=== PATIENT | male | born 1965 | race Caucasian/White ===

== ENCOUNTER → 2019-06-08 06:45 | Day surgery (SDC) | payer MEDICARE, MEDICAID ==
[~2019-06-08 06:45] MED LIST: Flumazenil* 0.1 MG/ML 5 ML MDV ONE; Heparin 2 UNITS/ML IVPREMIX* 3,000 UNIT/1,500 ML BAG IV ONE; Iohexol 350 (CONTRAST) 200 ML MDV IV ONE; Lidocaine 1% INJ* 10 MG/ML 30 ML SDV ONE; Midazolam* 1 MG/ML 5 ML VIAL (5 MG) ONE; Naloxone* 0.4 MG/ML 1 ML VIAL ONE; fentaNYL* 50 MCG/ML 2 ML VIAL (100 MCG VIAL) ONE
[2019-06-08 08:21] LABS: Calcium 9.3 mg/dL (8.6-10.3); EGFR African American 124.1 (>60); EGFR Non-African American 102.6 (>60); Potassium 4.3 mmol/L (3.5-5.0)
[2019-06-08 11:57] VITALS: BP 131/87
== END | disposition home or self-care (01) ==
LOC: CHICATH 06:45
PROVIDERS: ATTEND Radiology Diagnostic Radiology
DX: I70.235 Atherosclerosis of native arteries of right leg with ulceration of other part of foot (principal); M86.9 Osteomyelitis, unspecified; M89.771 Major osseous defect, right ankle and foot; E11.621 Type 2 diabetes mellitus with foot ulcer; L97.519 Non-pressure chronic ulcer of other part of right foot with unspecified severity; Z79.84 Long term (current) use of oral hypoglycemic drugs; E11.610 Type 2 diabetes mellitus with diabetic neuropathic arthropathy; I10 Essential (primary) hypertension; E78.00 Pure hypercholesterolemia, unspecified
CPT/HCPCS: 36415; 75716; 75736; 76937; 80048; 99156; 99157; C1760; C1769; C1887; C1894; J1644; J2250; J2310; J3010

== ENCOUNTER 2019-06-16 22:14 | Inpatient (IN) | payer MEDICARE, MEDICAID ==
--- NOTE | 2019-06-16 23:10 | ED ---
Skin Complaint - HPI Summary HPI Summary: This pt is a 54 y/o male, with hx of DM, presenting to [facility] for positive MRSA from blood cultures drawn on 06/14/19. Pt reports he received a call from Dr. Farias this afternoon notifying him of positive blood cultures and advising him to come to the ED for IV antibiotics. Pt states he saw Dr. Perea, orthopedist, on 06/06/19 and pt told him about his fever the night before but was only 99.1F in his office. He notes that day he also had fever and chills. The next day on 06/07/19 pt saw the PA who works with Dr. Farias and sent him to get blood cultures. Pt was also given oral doxycycline. Pt has noticed since yesterday a lump behind his right calf. Pt also states he has a healing ulcer on his right foot. He reports a headache on 06/12 and 06/13. Denies cough, diarrhea, abd pain, rashes. Pt was supposed to have surgery with Dr. Perea on 06/19/19 to have osteomyelitis bone removed from right foot because MRI showed it was infected. Pt notes Dr. Irene did an angiogram of both legs. Pt has also been working with Dr. Pérez to potentially start hyperbaric therapy for nonhealing skin graft after his surgery. Hx of group B strep infection on left leg. Denies tobacco use. - History of Current Complaint Chief Complaint: EDGeneral Time Seen by Provider: 06/16/19 22:54 Stated Complaint: IV ANTIBOTICS PER PT Hx Obtained From: Patient Onset/Duration: Started Days Ago, Still Present Timing: Lasting Days Current Severity: None Pain Intensity: 0 Pain Scale Used: 0-10 Numeric Skin Location: Foot - right Character: Redness Aggravating Symptom(s): Nothing Alleviating Symptom(s): Nothing Associated Signs & Symptoms: Fever, Chills - Allergy/Home Medications Allergies/Adverse Reactions: Allergies Allergy/AdvReac Type Severity Reaction Status Date / Time nut - unspecified Allergy Severe FACIAL Verified 06/16/19 22:25 SWELLING PMH/Surg Hx/FS Hx/Imm Hx Endocrine/Hematology History: Reports: Hx Diabetes - type 2 Cardiovascular History: Reports: Hx Hypertension - controlled with meds Denies: Hx Angina, Hx Pacemaker/ICD GI History: Reports: Hx Gastroesophageal Reflux Disease History: Denies: Hx Chronic Renal Failure, Hx Renal Disease Sensory History: Reports: Hx Cataracts - very early stages, Hx Contacts or Glasses - contacts Denies: Hx Hearing Aid Opthamlomology History: Reports: Hx Cataracts - very early stages, Hx Contacts or Glasses - contacts Psychiatric History: Denies: Hx Panic Disorder - Cancer History Hx Chemotherapy: No - Surgical History Surgery Procedure, Year, and Place: 2017 RIGHT FOOT SHAVE [facility]. TOE AMPUTATIONS (03/2016) IN [place] ALSO 2015 DEBRIDMENT [place] Hx Anesthesia Reactions: No Infectious Disease History: Yes Infectious Disease History: Denies: Traveled Outside the [place] in Last 30 Days - Family History Known Family History: Positive: Cardiac Disease, Hypertension, Diabetes Family History: stroke - Social History Alcohol Use: Occasionally Alcohol Amount: 3-4 Substance Use Type: Reports: None Smoking Status (MU): Former Smoker Review of Systems Positive: Fever, Chills Negative: Cough Negative: Abdominal Pain, Diarrhea Skin: Other - POSITIVE: lump behind right calf Negative: Rash Positive: Headache All Other Systems Reviewed And Are Negative: Yes Physical Exam - Summary Physical Exam Summary: Appearance: Well-appearing, Well-nourished, lying in bed comfortable Skin: Warm, dry, no obvious rash Eyes: sclera anicteric, no conjunctival pallor ENT: mucous membranes moist Neck: deferred Respiratory: No signs of respiratory distress Cardiovascular: Appears well perfused, pulses are nml Abdomen: deferred Musculoskeletal: Right lower extremity: patient has a firm erythematous subcutaneous nodule approximately graped size which does not feel fluctuant but is mildly tender. He has erythema on the dorsum of the right foot around the ankle extending from the ulcer. I took the dressing down and is healing well, and is down to half a centimeter across. Neurological: Awake and alert, mentation is normal, speech is fluent and appropriate Psychiatric: affect is normal, does not appear anxious or depressed Triage Information Reviewed: Yes Vital Signs On Initial Exam: Initial Vitals Temp Pulse Resp BP Pulse Ox 97.6 F 116 16 118/74 94 06/16/19 22:20 06/16/19 22:20 06/16/19 22:20 06/16/19 22:20 06/16/19 22:20 Vital Signs Reviewed: Yes Diagnostics - Vital Signs Vital Signs Temp Pulse Resp BP Pulse Ox 06/16/19 22:20 97.6 F 116 16 118/74 94 - Laboratory Result Diagrams: 06/16/19 23:05 06/16/19 23:05 Lab Statement: Any lab studies that have been ordered have been reviewed, and results considered in the medical decision making process. Course/Dx - Course Assessment/Plan: Pt is a 54 y/o male presenting to [facility] for positive MRSA from blood cultures drawn on 06/14/19. Pt reports he received a call from Dr. Farias this afternoon notifying him of positive blood cultures and advising him to come to the ED for IV antibiotics. Pt with fever, chills, and headache on 06/12 and 06/13. He has upcoming surgery with Dr. Perea on 06/19/19 for osteomyelitis of right foot. Test results remarkable for hemoglobin of 12.9, hematocrit of 38, Bun of 36, creatinine of 1.59. Dr. Sin, orthopedist, examined the pt in the ED. Discussed the case with Dr. Diego, hospitalist, who accepted the pt for admission. - Diagnoses Provider Diagnoses: Bacteremia, Osteomyelitis of right foot - Physician Notifications Discussed Care Of Patient With: Ignacia Crook Time Discussed With Above Provider: 23:50 Instructed by Provider To: Admit As Inpatient Discharge - Sign-Out/Discharge Documenting (check all that apply): Patient Departure - Admit to [facility] Patient Received Moderate/Deep Sedation with Procedure: No - Discharge Plan Condition: Stable Disposition: ADMITTED TO [facility] - Billing Disposition and Condition Condition: STABLE Disposition: Admitted to [facility] - Attestation Statements Document Initiated by Haritha: Yes Documenting Jeseibruthie: Chasity Mike Provider For Whom Haritha is Documenting (Include Credential): Amadou Wing MD Scribruthie Attestation: Chasity Talavera, scribed for Amadou Wing MD on 06/17/19 at 1851. Scribe Documentation Reviewed: Yes Provider Attestation: The documentation as recorded by the Chasity cordoba accurately reflects the service I personally performed and the decisions made by me, Amadou Wing MD Status of Scribe Document: Viewed
[2019-06-16 23:17] LABS: ABS Basophils 0.1 10^3/ul (0-0.2); ABS Eosinophils 0.3 10^3/ul (0-0.6); ABS Lymphocytes 2.6 10^3/ul (1.0-4.8); ABS Monocytes 1.2 10^3/ul (0-0.8); ABS Neutrophils 5.2 10^3/ul (1.5-7.7); Eosinophil % 3.1 %; Hematocrit 38 % (42-52); Hemoglobin 12.9 g/dL (14.0-18.0); Lymphocyte % 28.2 %; Mean Corpuscular HGB Conc 34 g/dL (31-36); Mean Corpuscular Hemoglobin 30 pg (27-31); Mean Corpuscular Volume 89 fL (80-94); Mean Platelet Volume 6.3 fL (7.4-10.4); Nucleated Red Blood Cells % 0.1; Platelet Count 236 10^3/uL (150-450); Red Blood Count 4.25 10^6 /uL (4.18-5.48); Red Cell Distribution Width 13 % (10-15); White Blood Count 9.3 10^3/uL (3.5-10.8)
[2019-06-16 23:24] LABS: INR 1.11 (0.82-1.09)
[2019-06-16 23:33] LABS: Albumin 4.3 g/dL (3.2-5.2); Albumin/Globulin Ratio 1.2 (1-3); BUN/Creatinine Ratio 22.6 (8-20); Calcium 9.4 mg/dL (8.6-10.3); EGFR African American 55.4 (>60); EGFR Non-African American 45.8 (>60); Globulin 3.6 g/dL (2-4); Potassium 3.9 mmol/L (3.5-5.0); Total Bilirubin 0.5 mg/dL (0.2-1.0); Total Protein 7.9 g/dL (6.4-8.9)
[2019-06-17] MEDS ORDERED: oxyCODONE/Acetamin 5/325 MG* TAB PO PRN (00:02)
[2019-06-17] MEDS ORDERED: Dextrose 50% VIAL 50 ml IV PUSH PRN (00:06)
[2019-06-17] MEDS ORDERED: NS 0.9% 1000 ML** 1,000 ML IV SCH (00:15)
[2019-06-17] MEDS ORDERED: Vancomycin(*) 1,000 MG in NS 0.9% 250 ML* 250 ML IVPB ONE (00:18)
[2019-06-17 01:31] LABS: C Reactive Protein 40.08 mg/L (<8.01)
--- NOTE | 2019-06-17 01:37 | CONS ---
CONSULTATION REPORT: DATE OF CONSULT: 06/16/19 CHIEF COMPLAINT: Right foot pain and bacteremia. HISTORY OF PRESENT ILLNESS: Briefly, Mr. Yanes is a patient well known to my colleague, Dr. Perea who is going to have surgery on Wednesday, who has a chronic diabetic wound ulcer on the right foot that is going to undergo debridement. He has a known history of osteomyelitis. He has had a recent angiography by Dr. Irene on 06/08/19. He states that a couple of days ago, he started to feel uncomfortable and had fever and chills. He was seen by Dr. Tavarez's office who takes care of his chronic osteomyelitis. He underwent blood cultures which came positive today. He was called and ask to come to the ER for admission. It was positive for MRSA. He took care of somethings at home because he is away to do surgery on Wednesday and had a lot of things he needed taken care of and so he presented this evening. He denies any current fevers or chills. He does feel general malaise and does not feel very comfortable. He has chronic right foot ulceration and he is obviously a little bit nervous because of the positive blood cultures. PAST MEDICAL HISTORY: Significant for hypertension, hypercholesterolemia, type 2 diabetes, osteomyelitis, right foot ulcer, history of left leg and knee Strep B infection, Charcot arthropathy. PAST SURGICAL HISTORY: Infection debridement in March 2015, great toe amputation in November 2015, small toe amputation February 2016, foot surgery skin graft in July 2017. MEDICATIONS: Include: 1. Lisinopril. 2. Atenolol. 3. Atorvastatin. 4. Actos. 5. Tylenol. 6. Zantac. 7. and he was given doxycycline at his visit. ALLERGIES: No allergies. FAMILY HISTORY: Significant for diabetes, heart disease, hypertension, and stroke. SOCIAL HISTORY: He is disabled. He is using a rolling rollabout. He wears diabetic protective shoes, full contact shoe. PHYSICAL EXAM: He is in no acute distress. He is well developed and well nourished. He is lying comfortably in a stretcher. EOMI. Chest clear to auscultation. Heart has regular rate and rhythm. Abdomen is soft and nontender. Alert and oriented x3. Temperature 97.6, pulse of 112, O2 saturation 94%, and blood pressure of 114/73. Examination of the right foot demonstrates he has 2+ DP, PT pulses. He has some sensation but he is neuropathic on the plantar surface. He has a 1-cm wound with significant callus with an obvious deformity of the foot and Charcot deformity of the foot. He is able to flex and extend his digits. His skin is otherwise intact. There is no evidence of erythema or purulent drainage. DIAGNOSTIC STUDIES/LAB DATA: He does have blood cultures that were obtained on 06/14/19 that demonstrates positive for MRSA. Labs obtained today demonstrates white count of 9.3, hematocrit of 38, platelet count of 236, INR of 1.11. Sodium of 138, potassium 3.9, chloride 101, carbon dioxide 21, BUN 36, creatinine 1.59, glucose is 99, calcium is 9.4. CRP obtained on 06/14 was 99.18. ASSESSMENT AND PLAN: This is a 54-year-old male who is supposed to have surgery on Wednesday which will be debridement of his ulceration. I am going to discuss with Dr. Perea that he was admitted for bacteremia. He will be admitted to the Medicine Team and on IV antibiotics. We will continue to follow him. We will still plan for any kind of surgical debridement once he is stable with Dr. Perea on Wednesday. So, he should be n.p.o. after midnight on Wednesday. We will continue to follow him over the weekend. [id number]/[facility] #: [id number] ANNE
--- NOTE | 2019-06-17 06:06 | HP ---
CC: Dr. Hosea Alarcon; Dr. Tavarez; Dr. Perea; Dr. Irene; Dr. Sin * HISTORY AND PHYSICAL: DATE OF ADMISSION: 06/17/19 PRIMARY CARE PROVIDER: Dr. Hosea Alarcon. CHIEF COMPLAINT: "Positive blood cultures." HISTORY OF PRESENT ILLNESS: Eliazar Yanes is a 54-year-old male with history of diabetes and Charcot foot who was noted to have chronic wound on the bottom of the right foot and findings concerning for osteomyelitis on MRI that was performed on 05/09/19. The patient was being prepared for a foot surgery by Dr. Perea that was supposed to be done on 06/19/19. He had an angiogram with Dr. 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 On 06/14/19, the patient has had fevers for a couple of days, called Dr. Tavarez, who ordered blood cultures. The blood cultures turned out to be positive for MRSA. He was called to come into the ED for evaluation. He noted that apart from couple of days of fevers on 06/13/19 and 06/19/19, he had a red area on the back of his right calf. He is going to be admitted with diagnoses of bacteremia and osteomyelitis. PAST MEDICAL HISTORY: 1. History of diabetes type 2, insulin dependent. 2. History of Charcot foot, status post debridement of the foot in 2014. 3. Great toe amputation in 2015. 4. Small toe in amputation in February 2016. 5. He also had foot surgery and skin graft in 07/2017 for left foot strep infection. 6. History of hypertension. 7. Dyslipidemia. 8. History of chronic right foot ulcer as mentioned above. 9. History of Clostridium difficile infection when on IV vancomycin in the past. MEDICATIONS: Include: 1. Actos 15 mg q.a.m. 2. Lisinopril 20 mg daily. 3. Insulin Admelog 36 units with his meals. 4. Insulin Basaglar 130 units q.a.m. 5. Lipitor 40 mg daily. 6. Atenolol 50 mg daily. 7. Acetaminophen on a p.r.n. basis. 8. Ranitidine 75 mg daily. ALLERGIES: No known drug allergies. FAMILY HISTORY: Significant for diabetes and hypertension in both parents. SOCIAL HISTORY: The patient is currently on disability, lives alone. As his surrogate, he names his mother, Jolene [place]. The patient denies any tobacco, alcohol, or drug use. REVIEW OF SYSTEMS: Please see history of present illness. All the remaining 12 systems were reviewed with the patient and were otherwise negative. PHYSICAL EXAMINATION GENERAL: The patient is a pleasant 54-year-old male, who is in no acute distress, alert, awake, and oriented x3. VITAL SIGNS: Blood pressure of 112/73, heart rate of 112 and regular, respiratory rate 16, oxygen saturation 95% on room air, temperature of 97.9. HEENT: Head: Atraumatic and normocephalic. Eyes: Pupils are equal and reactive to light and accommodation. Oropharynx is clear. Mucosa moist. NECK: Supple. No JVD. No bruits bilaterally. RESPIRATORY: Clear to auscultation bilaterally. CARDIOVASCULAR: Regular rate and rhythm. No murmur. ABDOMEN: protuberant and distended. Soft and nontender. Bowel sounds present in all 4 quadrants. EXTREMITIES: There is trace right ankle edema. Pulses are +2 bilaterally. There is no clubbing, no cyanosis. The right foot has Charcot foot deformity noted with the mid part of the bottom of the foot area of an ulceration that is crater-like with an opening of approximately 1 cm, draining serous and scant purulent liquid. There is no erythema noted in the area. The patient does have erythema on the back of his right calf with venous cord noticed likely due to superficial phlebitis. The area on the right calf is approximately 20 cm long and 5 cm in width. NEURO EVALUATION: Speech is clear. Cranial nerves II through XII grossly intact. Motor strength is 5/5 bilaterally. DIAGNOSTIC STUDIES/LAB DATA: Showed white blood cell count of 9.3, hemoglobin 12.9, hematocrit of 38, and platelets of 236. Sodium 138, potassium 3.9, chloride 101, carbon dioxide 21, BUN 36, creatinine 1.59. Liver function test unremarkable. Lactic acid of 1.5. Blood cultures obtained from 06/14/19 showed MRSA sensitive to vancomycin. ASSESSMENT AND PLAN: 1. Osteomyelitis of the right foot with methicillin-resistant Staphylococcus aureus bacteremia and acute kidney injury. At this point, the patient is going to be placed on gentle intravenous hydration. I suspect that kidney injury is due to his ongoing infection. He is going to be continued on vancomycin and repeat blood cultures were already ordered. In the future, he will likely need a RENÉE and ID consult, which unfortunately is not available here over the weekend. We also asked Dr. Sin who co-operates Dr. Perea to see the patient in consultation. 2. Due to the patient's history of Clostridium difficile, we will place the patient on probiotics. 3. For his diabetes, the patient is going to be placed on his insulin Lantus and insulin lispro sliding scale. Actos is going to be held. 4. His hypertension, lisinopril is going to be held due to acute kidney injury and atenolol is going to be continued. 5. For DVT prophylaxis, the patient is going to be placed on heparin subcutaneously. 6. The patient's code status is full. His surrogate is his mom. TIME SPENT: Approximately 60 minutes was spent on the admission of this patient , more than half that time was spent [id number] with the patient during the interview and physical exam. [id number]/[facility] #: [id number] ANNE
[2019-06-17] MEDS: Heparin VIAL(*) 5000 UNITS/ML VIAL (FIVE THOUSAND) SUBCUT SCH ×3 (06:26→21:25)
[2019-06-17] MEDS ORDERED: Insulin GLARGINE(*) 1 UNITS UNIT SUBCUT SCH ×2 (09:00→21:00)
[2019-06-17 09:56] LABS: Urine Appearance Clear; Urine Bilirubin Negative (Negative); Urine Blood Negative (Negative); Urine Color Yellow; Urine Glucose Negative (Negative); Urine Ketones 1+ (Negative); Urine Nitrite Negative (Negative); Urine Protein Negative (Negative); Urine Specific Gravity 1.019 (1.010-1.030); Urine Urobilinogen Negative (Negative)
[2019-06-17] MEDS: Insulin LISPRO* 1 UNITS UNIT SUBCUT SCH ×6 (10:36→20:50)
[2019-06-17] MEDS ORDERED: Dextrose 50% Syringe 50 ML* 25 GM/50 ML SYRINGE IV PUSH PRN (11:24)
--- NOTE | 2019-06-17 11:35 | PN ---
Progress Note - Progress Note Date of Service: 06/17/19 Note: Pt seen and examined. Feeling ok. On IV abx. Temp Pulse Resp BP Pulse Ox 98.6 F 94 16 111/67 96 06/17/19 07:15 06/17/19 07:15 06/17/19 07:30 06/17/19 07:15 06/17/19 07:30 NAD. AAox3. comfortable in bed. foot unchanged in appearance but mildly increased drainage. SILT but dulled due to neuropathy. able to flex/ext toes. brisk cap refill A/P 54 yo M with charcot foot and diabetic ulcer now with bacteremia discussed with Dr Perea who cares for him. Plan is still for surgery wednesday as long as patient medically stable will follow. npo after midnight wednesday
--- NOTE | 2019-06-17 11:50 | PN ---
Subjective Date of Service: 06/17/19 Interval History: Pt is generally feeling well. No pain, SOB, diarrhea. He tells me the story of the wound on the plantar surface of his R foot and how it has opened and closed a few times as well as developing fevers Wednesday and Wednesday evening. We discuss his insulin dosing. He is worried about the current dose of lantus ordered and wishes to have this reduced to 30 units tonight and follow up his sugars tomorrow. Objective Active Medications: Acetaminophen (Tylenol Tab*) 650 mg PO Q4H PRN PRN Reason: FEVER/PAIN Atenolol (Tenormin Tab*) 50 mg PO QAM AARON Dextrose (D50w Syringe 50 Ml*) 12.5 gm IV PUSH .FOR FS < 60 - SS PRN PRN Reason: FS < 60 Heparin Sodium (Porcine) (Heparin Vial(*)) 5,000 units SUBCUT Q8HR [facility] Last Admin: 06/17/19 06:26 Dose: 5,000 units Insulin Glargine (Lantus(*)) 30 units SUBCUT BEDTIME AARON Insulin Human Lispro (Humalog*) 0 units SUBCUT ACHS [facility]; Protocol Last Admin: 06/17/19 10:36 Dose: Not Given Insulin Human Lispro (Humalog*) 20 units SUBCUT AC [facility] Lactobacillus Rhamnosus (Lactobacillus Acidophilus*) 1 tab PO BID AARON Oxycodone/Acetaminophen (Percocet 5/325 Tab*) 1 tab PO Q4H PRN PRN Reason: Pain mod to severe Vital Signs - 8 hr 06/17/19 06/17/19 07:15 07:30 Temperature 98.6 F Pulse Rate 94 Respiratory 18 16 Rate Blood Pressure 111/67 (mmHg) O2 Sat by Pulse 95 96 Oximetry Oxygen Devices in Use Now: None Appearance: Middle aged male sitting up in bed, NAD Eyes: No Scleral Icterus Ears/Nose/Mouth/Throat: Mucous Membranes Moist Respiratory: Symmetrical Chest Expansion and Respiratory Effort, Clear to Auscultation Cardiovascular: NL Sounds; No Murmurs; No JVD, RRR, No Edema Abdominal: NL Sounds; No Tenderness; No Distention Extremities: No Clubbing, Cyanosis Skin: - - R calf with slightly larger than quarter sized area of erythema and induration (tender to palpation). R plantar surface of the foot with quarter sized area of callus with central eraser sized ulceration in the center Neurological: Alert and Oriented x 3 Result Diagrams: 06/16/19 23:05 06/16/19 23:05 Assess/Plan/Problems-Billing Mr Bundy is a 54 yo M who has a h/o type II DM, Charcot foot, HTN and HLD who presented to the ER after being contacted that he had positive blood cultures that were drawn as an outpatient for evaluation of fever. - Patient Problems (1) MRSA bacteremia Current Visit: Yes Status: Acute Code(s): R78.81 - BACTEREMIA SNOMED Code( s): 63337136317050370 Comment: Pt with 2 of 4 bottles positive for MRSA from 06/14/19. Repeat BC no growth so far. Continue vancomycin. ID consult on 06/19/19. TTE ordered to eval for IE but seems unlikely as pt only with 1 set of BC positive. Bacteremia likely developed related to chronic R foot ulcer/osteomyelitis. (2) Osteomyelitis of right foot Current Visit: Yes Status: Acute Code(s): M86.9 - OSTEOMYELITIS, UNSPECIFIED SNOMED Code(s): 1870667590932464 Comment: Pt was already set up for surgery on 06/19/19. Continue vancomycin, I have call out to ID to discuss if he needs additional coverage given his diabetes history. Continue NWB. (3) Type II diabetes mellitus Current Visit: Yes Status: Acute Comment: Blood sugars have been at times low but otherwise under excellent control. We discussed his insulin regimen and he has told me what dose he would like to try. Will start lantus 30 units at bedtime tonight and lispro 20 units with meals. Monitor the sugars and adjust the insulin as needed. (4) HTN (hypertension) Current Visit: Yes Status: Acute Code(s): I10 - ESSENTIAL (PRIMARY) HYPERTENSION SNOMED Code(s): 65063357 Comment: BP is under excellent control. Continue atenolol and likely resume lisinopril tomorrow. (5) HLD (hyperlipidemia) Current Visit: Yes Status: Acute Code(s): E78.5 - HYPERLIPIDEMIA, UNSPECIFIED SNOMED Code(s): 62262462 Comment: Resume lipitor. (6) DVT prophylaxis Current Visit: Yes Status: Acute Code(s): Z29.9 - ENCOUNTER FOR PROPHYLACTIC MEASURES, UNSPECIFIED SNOMED Code(s): 566036269 Comment: SQ heparin (7) Full code status Current Visit: Yes Status: Acute Code(s): Z78.9 - OTHER SPECIFIED HEALTH STATUS SNOMED Code(s): 185978316
[2019-06-17] MEDS ORDERED: Famotidine TAB* 20 MG PO PRN (12:20)
[2019-06-17] MEDS: Atorvastatin* 40 MG TAB PO SCH (13:18)
[2019-06-17] MEDS: Cefepime 2 GM in Dextrose(*) 2 GM/50 ML BAG IV SCH (13:18)
[2019-06-17] MEDS: Lactobacillus Acidophilus* 1 TAB PO SCH ×2 (13:18→21:24)
[2019-06-17] MEDS: Atenolol TAB* 50 MG PO SCH (13:18)
[2019-06-17] MEDS: metroNIDAZOLE TAB* 250 MG PO SCH ×2 (13:18→21:24)
[2019-06-18] MEDS: Cefepime 2 GM in Dextrose(*) 2 GM/50 ML BAG IV SCH ×2 (00:56→13:24)
[2019-06-18] MEDS: Acetaminophen TAB* 325 MG PO PRN ×2 (00:59→06:03)
[2019-06-18] MEDS: Heparin VIAL(*) 5000 UNITS/ML VIAL (FIVE THOUSAND) SUBCUT SCH ×3 (06:00→21:16)
[2019-06-18 06:30] LABS: Calcium 10.5 mg/dL (8.6-10.3); EGFR African American 114.1 (>60); EGFR Non-African American 94.3 (>60); Potassium 4.4 mmol/L (3.5-5.0)
[2019-06-18] MEDS ORDERED: Atorvastatin* 40 MG TAB PO SCH (09:00)
[2019-06-18] MEDS: Lactobacillus Acidophilus* 1 TAB PO SCH ×2 (09:30→21:15)
[2019-06-18] MEDS: metroNIDAZOLE TAB* 250 MG PO SCH ×2 (09:30→21:15)
[2019-06-18] MEDS: Atenolol TAB* 50 MG PO SCH (09:30)
[2019-06-18] MEDS: Atorvastatin* 40 MG TAB PO SCH (09:30)
[2019-06-18] MEDS: Insulin LISPRO* 1 UNITS UNIT SUBCUT SCH ×7 (09:30→21:16)
--- NOTE | 2019-06-18 09:34 | PN ---
Subjective Date of Service: 06/18/19 Interval History: Pt is feeling well. He denies any pain. The sore area on the R calf is not as tender today. He is relieved to learn it is a thrombosed vericose vein. No diarrhea. No SOB or other issues today. He did have a headache overnight but it improved with tylenol. Objective Active Medications: Acetaminophen (Tylenol Tab*) 650 mg PO Q4H PRN PRN Reason: FEVER/PAIN Last Admin: 06/18/19 06:03 Dose: 650 mg Atenolol (Tenormin Tab*) 50 mg PO QAM [facility] Last Admin: 06/17/19 13:18 Dose: 50 mg Atorvastatin Calcium (Lipitor*) 40 mg PO QAM [facility] Last Admin: 06/17/19 13:18 Dose: 40 mg Dextrose (D50w Syringe 50 Ml*) 12.5 gm IV PUSH .FOR FS < 60 - SS PRN PRN Reason: FS < 60 Famotidine (Pepcid Tab*) 10 mg PO QAM PRN PRN Reason: INDIGESTION Heparin Sodium (Porcine) (Heparin Vial(*)) 5,000 units SUBCUT Q8HR [facility] Last Admin: 06/18/19 06:00 Dose: 5,000 units Cefepime HCl (Maxipime 2 Gm In Dextrose Duplex (*)) 2 gm in 50 mls @ 100 mls/ hr IV Q12H [facility] Last Admin: 06/18/19 00:56 Dose: 100 mls/hr Insulin Glargine (Lantus(*)) 30 units SUBCUT BEDTIME [facility] Last Admin: 06/17/19 21:25 Dose: 30 units Insulin Human Lispro (Humalog*) 0 units SUBCUT ACHS [facility]; Protocol Last Admin: 06/17/19 20:50 Dose: Not Given Insulin Human Lispro (Humalog*) 20 units SUBCUT AC [facility] Last Admin: 06/17/19 17:35 Dose: 20 units Lactobacillus Rhamnosus (Lactobacillus Acidophilus*) 1 tab PO BID [facility] Last Admin: 06/17/19 21:24 Dose: 1 tab Metronidazole (Flagyl Tab*) 500 mg PO BID [facility] Last Admin: 06/17/19 21:24 Dose: 500 mg Oxycodone/Acetaminophen (Percocet 5/325 Tab*) 1 tab PO Q4H PRN PRN Reason: Pain mod to severe Vital Signs - 8 hr 06/18/19 03:10 Pulse Rate 90 Respiratory 16 Rate Blood Pressure 115/56 (mmHg) O2 Sat by Pulse 96 Oximetry Oxygen Devices in Use Now: None Appearance: Middle aged male sitting up in bed, NAD Eyes: No Scleral Icterus Ears/Nose/Mouth/Throat: Mucous Membranes Moist Respiratory: Symmetrical Chest Expansion and Respiratory Effort, Clear to Auscultation Cardiovascular: NL Sounds; No Murmurs; No JVD, RRR, No Edema Abdominal: NL Sounds; No Tenderness; No Distention Extremities: No Clubbing, Cyanosis Skin: No Nodules or Sclerosis, - - wound on plantar surface of R foot not inspected today Neurological: Alert and Oriented x 3 Result Diagrams: 06/16/19 23:05 06/18/19 05:54 Microbiology and Other Data: Microbiology 06/16/19 23:03 Aerobic Blood Culture - Preliminary Blood Venous No Growth Day 1 Anaerobic Blood Culture - Preliminary No Growth Day 1 06/16/19 23:09 Aerobic Blood Culture - Preliminary Blood Venous No Growth Day 1 Anaerobic Blood Culture - Preliminary No Growth Day 1 Assess/Plan/Problems-Billing Mr Bundy is a 54 yo M who has a h/o type II DM, Charcot foot, HTN and HLD who presented to the ER after being contacted that he had positive blood cultures that were drawn as an outpatient for evaluation of fever. - Patient Problems (1) MRSA bacteremia Current Visit: Yes Status: Acute Code(s): R78.81 - BACTEREMIA SNOMED Code( s): 98565556840609209 Comment: Pt with 2 of 4 bottles positive for MRSA from 06/14/19. Repeat BC no growth so far D#1. Continue vancomycin. ID consult on 06/19/19. TTE pending. Bacteremia likely developed related to chronic R foot ulcer/osteomyelitis. (2) Osteomyelitis of right foot Current Visit: Yes Status: Acute Code(s): M86.9 - OSTEOMYELITIS, UNSPECIFIED SNOMED Code(s): 1235486772575650 Comment: Pt was already set up for surgery on 06/19/19. Continue vancomycin, flagyl and cefepime given the patient being diabetic and having a chronic wound. Await further ortho recommendations tomorrow. (3) Type II diabetes mellitus Current Visit: Yes Status: Acute Comment: Blood sugars are under good control. Continue lispro 20 units with meals and decrease lantus to 15 units tonight as he will be NPO. Continue to follow sugars. (4) HTN (hypertension) Current Visit: Yes Status: Acute Code(s): I10 - ESSENTIAL (PRIMARY) HYPERTENSION SNOMED Code(s): 98739555 Comment: BP is under excellent control. Continue atenolol. While Cr has improved will still hold lisinopril as BP excellent at this time. (5) HLD (hyperlipidemia) Current Visit: Yes Status: Acute Code(s): E78.5 - HYPERLIPIDEMIA, UNSPECIFIED SNOMED Code(s): 37058201 Comment: Continue lipitor. (6) DVT prophylaxis Current Visit: Yes Status: Acute Code(s): Z29.9 - ENCOUNTER FOR PROPHYLACTIC MEASURES, UNSPECIFIED SNOMED Code(s): 910860715 Comment: SQ heparin (7) Full code status Current Visit: Yes Status: Acute Code(s): Z78.9 - OTHER SPECIFIED HEALTH STATUS SNOMED Code(s): 640874425
[2019-06-18] MEDS ORDERED: Vancomycin per Pharmacy* NOTE FOLLOW UP PRN (09:36)
[2019-06-18] MEDS ORDERED: Vancomycin(*) 2,000 MG in NS 0.9% 500 ML* 500 ML IVPB ONE (10:00)
--- NOTE | 2019-06-18 11:05 | PN ---
Progress Note - Progress Note Date of Service: 06/18/19 - Ortho Note: Patient resting comfortably in bed breathing easily. He feels much better today and denies pain or fever. His bandage is intact with scant amount of drainage without signs of infection. Sensation is present but altered. Skin pink and dry without erythema. PT pulse present but faint. He understands we will proceed with scheduled surgery tomorrow.
[2019-06-18] MEDS: Vancomycin(*) 1,000 MG in NS 0.9% 250 ML* 250 ML IVPB SCH (17:51)
[2019-06-18] MEDS: Insulin GLARGINE(*) 1 UNITS UNIT SUBCUT SCH (21:14)
[2019-06-18] MEDS ORDERED: Buffered Lidocaine 1% SYRIN* 1 ML/SYRINGE INTRADERM ONE (22:25)
[2019-06-19] MEDS: Cefepime 2 GM in Dextrose(*) 2 GM/50 ML BAG IV SCH ×2 (00:44→15:13)
[2019-06-19] MEDS: Vancomycin(*) 1,000 MG in NS 0.9% 250 ML* 250 ML IVPB SCH ×4 (01:15→23:25)
[2019-06-19] MEDS ORDERED: Lactated Ringers 1000 ML Bag* 1,000 ML IV SCH (06:00)
--- NOTE | 2019-06-19 08:46 | PN ---
Subjective Date of Service: 06/19/19 Interval History: Pt is feeling well. We discussed his moderately elevated blood sugar this AM, states he would typically not take any insulin coverage for this level while NPO but later in the day, he would just get back to his usual regimen. No pain or SOB. He is ready to proceed with surgery today. Objective Active Medications: Acetaminophen (Tylenol Tab*) 650 mg PO Q4H PRN PRN Reason: FEVER/PAIN Last Admin: 06/18/19 06:03 Dose: 650 mg Atenolol (Tenormin Tab*) 50 mg PO QAM [facility] Last Admin: 06/18/19 09:30 Dose: 50 mg Atorvastatin Calcium (Lipitor*) 40 mg PO QAM [facility] Last Admin: 06/18/19 09:30 Dose: 40 mg Dextrose (D50w Syringe 50 Ml*) 12.5 gm IV PUSH .FOR FS < 60 - SS PRN PRN Reason: FS < 60 Famotidine (Pepcid Tab*) 10 mg PO QAM PRN PRN Reason: INDIGESTION Cefepime HCl (Maxipime 2 Gm In Dextrose Duplex (*)) 2 gm in 50 mls @ 100 mls/ hr IV Q12H [facility] Last Admin: 06/19/19 00:44 Dose: 100 mls/hr Vancomycin HCl 1,000 mg/ (Sodium Chloride) 250 mls @ 166.667 mls/hr IVPB Q8H [facility] Last Admin: 06/19/19 01:15 Dose: 166.667 mls/hr Lactated Ringer's (Lactated Ringers 1000 Ml Bag*) 1,000 mls @ 125 mls/hr IV PER RATE [facility] Insulin Glargine (Lantus(*)) 15 units SUBCUT BEDTIME [facility] Last Admin: 06/18/19 21:14 Dose: 15 unit Insulin Human Lispro (Humalog*) 0 units SUBCUT ACHS [facility]; Protocol Last Admin: 06/18/19 21:16 Dose: Not Given Insulin Human Lispro (Humalog*) 20 units SUBCUT AC [facility] Last Admin: 06/18/19 16:58 Dose: 20 units Lactobacillus Rhamnosus (Lactobacillus Acidophilus*) 1 tab PO BID [facility] Last Admin: 06/18/19 21:15 Dose: 1 tab Lisinopril (Prinivil Tab*) 20 mg PO QAM [facility] Metronidazole (Flagyl Tab*) 500 mg PO BID [facility] Last Admin: 06/18/19 21:15 Dose: 500 mg Oxycodone/Acetaminophen (Percocet 5/325 Tab*) 1 tab PO Q4H PRN PRN Reason: Pain mod to severe Pharmacy Consult (Vancomycin Per Pharmacy*) 1 note FOLLOW UP . PRN PRN Reason: PER PROTOCOL Pharmacy Profile Note (Vancomycin Trough Check) 1 note FOLLOW UP 929 ONE Stop: 06/19/19 09:31 Vital Signs - 8 hr 06/19/19 03:15 Temperature 98.2 F Pulse Rate 88 Respiratory 18 Rate Blood Pressure 146/86 (mmHg) O2 Sat by Pulse 96 Oximetry Oxygen Devices in Use Now: None Appearance: Middle aged obese male sitting up in bed, NAD Eyes: No Scleral Icterus Ears/Nose/Mouth/Throat: Mucous Membranes Moist Respiratory: Symmetrical Chest Expansion and Respiratory Effort, Clear to Auscultation Cardiovascular: NL Sounds; No Murmurs; No JVD, RRR, No Edema Abdominal: NL Sounds; No Tenderness; No Distention Extremities: No Clubbing, Cyanosis Skin: No Nodules or Sclerosis, - - ulcer on R foot not inspected today Neurological: Alert and Oriented x 3 Result Diagrams: 06/16/19 23:05 06/18/19 05:54 Microbiology and Other Data: Microbiology 06/16/19 23:03 Aerobic Blood Culture - Preliminary Blood Venous No Growth Day 1 Anaerobic Blood Culture - Preliminary No Growth Day 1 06/16/19 23:09 Aerobic Blood Culture - Preliminary Blood Venous No Growth Day 1 Anaerobic Blood Culture - Preliminary No Growth Day 1 Assess/Plan/Problems-Billing Mr Bundy is a 54 yo M who has a h/o type II DM, Charcot foot, HTN and HLD who presented to the ER after being contacted that he had positive blood cultures that were drawn as an outpatient for evaluation of fever. - Patient Problems (1) MRSA bacteremia Current Visit: Yes Status: Acute Code(s): R78.81 - BACTEREMIA SNOMED Code( s): 64945080985492742 Comment: Pt with 2 of 4 bottles positive for MRSA from 06/14/19. Repeat BC no growth so far D#2. Continue vancomycin. ID consult today. TTE done but results pending. It is unlikely there is IE as his cultures cleared very quickly. (2) Osteomyelitis of right foot Current Visit: Yes Status: Acute Code(s): M86.9 - OSTEOMYELITIS, UNSPECIFIED SNOMED Code(s): 6739516051847461 Comment: Plan is for the OR today. Continue vancomycin, cefepime and flagyl. ID consult pending to determine how long he will need to be on IV Abx. (3) Type II diabetes mellitus Current Visit: Yes Status: Acute Comment: BS this AM elevated secondary to reduced dose of lantus last night in anticipation of going to the OR today. Once eating again he will be restarted on lantus 30 units at bedtime and 20 units of lispro with meals. (4) HTN (hypertension) Current Visit: Yes Status: Acute Code(s): I10 - ESSENTIAL (PRIMARY) HYPERTENSION SNOMED Code(s): 58559332 Comment: BP more elevated today. Will resume lisinopril. Continue atenolol. (5) HLD (hyperlipidemia) Current Visit: Yes Status: Acute Code(s): E78.5 - HYPERLIPIDEMIA, UNSPECIFIED SNOMED Code(s): 65893549 Comment: Continue lipitor. (6) DVT prophylaxis Current Visit: Yes Status: Acute Code(s): Z29.9 - ENCOUNTER FOR PROPHYLACTIC MEASURES, UNSPECIFIED SNOMED Code(s): 993580435 Comment: SQ heparin-held for surgery (7) Full code status Current Visit: Yes Status: Acute Code(s): Z78.9 - OTHER SPECIFIED HEALTH STATUS SNOMED Code(s): 910188728
[2019-06-19] MEDS: Insulin LISPRO* 1 UNITS UNIT SUBCUT SCH ×7 (08:47→22:15)
--- NOTE | 2019-06-19 09:10 | ECHO ---
*[facility]* [place] [address] Fax #: [phone] Transthoracic Echocardiogram Patient: Miles Bundy : 1965 Study Date: 06/19/2019 Age: 54 Gender: M HR: 86 bpm Height: 74 in /188 cm BSA: 2.52 m^2 Weight: 282.4 lb /128.4 kg BMI: 36.3 kg/m^2 *Horticulture/Floriculture Teacher: * Carli Whalen RDCS RN *Referring Physician: * Marisabel ArzolaReading Physician: * Gigi Monzon MD Indications: Bacteremia. History: Chronic right foot ulcer. Risk factors: Hypertension. Diabetes mellitus. Obese. Dyslipidemia. Conclusions Summary: - Left ventricle: Systolic function is normal. The estimated ejection fraction is 55-60%. Wall motion is normal; there are no regional wall motion abnormalities. - Mitral valve: There is trace to mild regurgitation. - Aortic valve: There is no evidence of stenosis. There is no regurgitation. - Tricuspid valve: There is trace regurgitation. - Pericardium, extracardiac: There is no pericardial effusion. - Pulmonary arteries: Systolic pressure can not be accurately estimated. - No masses noted on valve structures Study data: Transthoracic echocardiogram. Procedure: Transthoracic echocardiography was performed. Image quality was fair. The study was technically limited due to body habitus. Complete 2D, spectral Doppler, and color flow Doppler. Location: Bedside. Patient status: Inpatient. Patient room number: 415-02. Rhythm: Normal sinus rhythm. Findings Left ventricle: The cavity size is normal. Wall thickness is mildly increased. Systolic function is normal. The estimated ejection fraction is 55-60%. Wall motion is normal; there are no regional wall motion abnormalities. There is no consistent Doppler evidence of clinically significant diastolic dysfunction. Right ventricle: The cavity size is normal. Wall thickness is mildly increased. Systolic function is normal. Left atrium: The atrium is normal in size. Right atrium: The atrium is normal in size. Mitral valve: The leaflets are mildly thickened. There is no evidence of stenosis. There is trace to mild regurgitation. Aortic valve: Not well visualized. The leaflets are mildly thickened. There is no evidence of stenosis. There is no regurgitation. Tricuspid valve: The valve is structurally normal. There is no evidence of stenosis. There is trace regurgitation. Pulmonic valve: The valve is structurally normal. There is no evidence of stenosis. There is trace regurgitation. Aorta: Aortic root: The aortic root is not dilated. Ascending aorta: The ascending aorta is not dilated. Aortic arch: The aortic arch is not dilated. Pericardium: There is no pericardial effusion. Pulmonary arteries: The main pulmonary artery is normal-sized. Systolic pressure can not be accurately estimated. Systemic veins: Inferior vena cava: The vessel is normal in size. There is (< 50%) respiratory change in the IVC dimension. Measurements Left ventricle Value Ref Aortic valve Value Ref TERESA, LAX 4.5 cm 4.2 - 5.8 Shanae diam, ED 2.1 cm ---- ESD, LAX 3.1 cm 2.5 - 4.0 Shanea diam/bsa, ED 0.8 cm/m^2 ---- FS, LAX 31 % 25 - 43 Peak v, S 1.16 m/sec ---- PW, ED (H) 1.2 cm 0.6 - 1.0 VTI, S 20.8 cm ---- IVS/PW, ED 0.98 Mean grad, S 3.0 mm Hg ---- E', lat shanae, TDI 11.7 cm/sec >=10.0 Peak grad, S 5.0 mm Hg - --- E/e', lat shanae, 9 LVOT/AV, VTI ratio 1.1 ---- TDI E', med shanae, TDI 8.8 cm/sec >=7.0 Mitral valve Value R ef E/e', med shanae, 12 Peak E 1.08 m/sec ---- TDI Peak A 0.88 m/sec ---- E', avg, TDI 10.3 cm/sec Decel time 208 ms ---- E/e', avg, TDI 11 <=14 Peak grad, D 4.7 mm Hg - --- Peak E/A ratio 1.2 ---- LVOT Value Ref Peak juani, S 1.1 m/sec Pulmonic valve Value Ref VTI, S 22.9 cm Peak v, S 1.23 m/sec ---- Mean grad, S 3 mm Hg Peak grad, S 6.0 mm Hg ---- Ventricular septum Value Ref Aortic root Value Ref IVS, ED (H) 1.2 cm 0.6 - 1.0 Root diam 3.3 cm <4.5 Right ventricle Value Ref Ascending aorta Value Ref TERESA minor ax, 3.4 cm 1.9 - 3.5 AAo AP diam, S 2.8 cm ---- A4C mid Aortic arch Value Ref Left atrium Value Ref Arch diam 2.7 cm ---- AP dim, ES 4.00 cm 3.00 - 4.00 Decending aorta Value Ref ML dim, A4C 4.7 cm Keanu peak juani 0.87 m/sec ---- SI dim, A4C 5.2 cm Vol/bsa, ES, 1-p 27 ml/m^2 12 - 37 Inferior vena cava Value Ref A4C Diam 1.3 cm ---- Vol/bsa, ES, A/L 27 ml/m^2 16 - 34 Right atrium Value Ref ML dim, ES, A4C (H) 4.5 cm 2.6 - 4.4 SI dim, ES, A4C 5.2 cm 3.4 - 5.3 SI dim/bsa, ES, 2.1 cm/m^2 1.8 - 3.0 A4C Legend: (L) and (H) marisol values outside specified reference range. Prepared and electronically signed by Gigi Monzon MD 06/19/2019 09:10
[2019-06-19] MEDS ORDERED: Vancomycin Trough Check NOTE FOLLOW UP ONE (09:30)
[2019-06-19] MEDS: Lactobacillus Acidophilus* 1 TAB PO SCH ×2 (09:39→20:27)
[2019-06-19] MEDS: metroNIDAZOLE TAB* 250 MG PO SCH ×2 (09:39→20:27)
[2019-06-19] MEDS: Atorvastatin* 40 MG TAB PO SCH (09:39)
[2019-06-19] MEDS: Atenolol TAB* 50 MG PO SCH (09:39)
[2019-06-19] MEDS: Lisinopril TAB* 10 MG PO SCH (09:39)
[2019-06-19] MEDS ORDERED: Morphine INJ* 2 MG/ML 1 ML SYRINGE (TWO MG - NEW SYRINGE VERSION) IV PRN (12:37)
[2019-06-19] MEDS: Acetaminophen TAB* 325 MG PO PRN ×2 (13:17→20:27)
[2019-06-19] MEDS ORDERED: oxyCODONE/Acetamin 5/325 MG* TAB PO PRN (15:07)
[2019-06-19] MEDS ORDERED: Magnesium Hydroxide LIQ* 30 ML UDC PO PRN (15:21)
[2019-06-19] MEDS ORDERED: Ondansetron INJ* 2 MG/ML VIAL IV PRN (15:22)
--- NOTE | 2019-06-19 15:28 | CONS ---
CONSULTATION REPORT: DATE OF ADMISSION: 06/17/19 DATE OF CONSULTATION: 06/19/19 PRIMARY CARE PROVIDER: Dr. Hosea Alarcon. PROVIDER REQUESTING CONSULTATION: Dr. Marisabel Arzola. CONSULTING SERVICE: Infectious disease. PROVIDER: Parish Rooney NP. ATTENDING PROVIDER: Dr. Bahman Tavarez.* (DICTATED BY PARISH ROONEY NP) REASON FOR CONSULTATION: MRSA bacteremia and chronic right foot osteomyelitis. IMPRESSION: 1. Methicillin-resistant Staphylococcus aureus bacteremia. Outpatient blood cultures with 1/4 bottles positive. Repeat blood cultures at the time of admission in the emergency room with no growth on day 2. The patient reports he has previously grown MRSA in a right foot wound. He has been afebrile, and no leukocytosis. He does not have any prosthetic material present such as implanted lines, joint replacements. I suspect the source is likely his right foot infection. He has had a transthoracic echocardiogram showing no vegetation. 2. Right foot infection with chronic osteomyelitis. He is going to surgery today with Dr. Perea for surgical debridement. 3. Diabetes mellitus type 2. 4. Acute Kidney Injury. Present on admission, resolved. PLAN: Recommend continuing cefepime, Flagyl, and vancomycin for now while we await surgical findings. Further recommendations will be based off of cultures obtained in the OR and his clinical course. Suspect he will need a long-term course of IV antibiotics to treat osteomyelitis. We will continue to follow along. HISTORY OF PRESENT ILLNESS: Mr. Yanes is a 54-year-old male with past medical history significant for diabetes mellitus type 2 and right Charcot foot , status post several surgical procedures. The patient has previously had 2 plantar ulcers on the right foot that have healed, the last one was in October 2018. He has followed with a surgeon in [place] who has done bone shaving and skin grafting to his right foot. Additionally, he underwent 60 hyperbaric treatments to heal an ulcer on his foot in the past. He currently uses a MOAPA boot to help prevent ulcers. He reports that his current right plantar foot ulcer presented in March of this year. He recently had ABIs and was referred to Dr. Irene for a possible vascular procedure. 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 The patient states that 1 week ago, he developed fevers, chills, diaphoresis, body aches, and a headache overnight. He was taking DayQuil and Tylenol for this. This persisted for 2 days. He was seen by infectious disease outpatient on Wednesday and continued to feel unwell. At that time, he denied any upper respiratory infection symptoms or urinary symptoms. After that appointment, he was sent for blood work, and was started on Doxycycline. His blood cultures drawn outpatient returned to show 1/ bottles positive for the MRSA. When these results were received on Wednesday, the patient was directed to the emergency room for admission where he awaited surgery on scheduled for Wednesday. While in the emergency room, the patient had repeat blood work drawn. He had labs showing anemia, acute kidney injury, CRP of 40.08. The patient was referred to the hospitalist service for admission. During his hospitalization, he has remained afebrile, with no leukocytosis. His acute kidney injury has resolved. His repeat blood cultures have had no growth to date. He is scheduled to have surgery with Dr. Perea later today. He has been on vancomycin, cefepime, and Flagyl during his hospitalization. He denies fevers, chills, shortness of breath, joint pain, muscle pain, nausea, vomiting, diarrhea, abdominal pain, urinary symptoms, rash, or recent travel. PAST MEDICAL HISTORY: 1. Diabetes mellitus type 2. 2. Charcot foot on the right. 3. Hypertension. 4. Hyperlipidemia. 5. Osteomyelitis. PAST SURGICAL HISTORY: 1. Status post left first and fifth toe amputations. 2. Status post multiple right foot surgeries and skin grafting. MEDICATIONS: Home Medications: 1. Lisinopril 20 mg by mouth daily. 2. Ranitidine 75 mg by mouth daily as needed for indigestion. 3. Atorvastatin 40 mg by mouth daily. 4. Atenolol 50 mg by mouth daily. 5. Lispro insulin 36 units subcutaneous 3 times daily with meals. 6. Glargine insulin 130 units subcutaneous every morning. 7. Pioglitazone 15 mg by mouth daily. Hospital Medications: 1. Acetaminophen 650 mg by mouth every 4 hours as needed for fever or pain. 2. Atenolol 50 mg by mouth daily. 3. Atorvastatin 40 mg by mouth daily. 4. Cefepime 2 g IV q.12 hours. 5. Dextrose 12.5 g IV push for glucose less than 60 as needed. 6. Famotidine 10 mg by mouth every morning as needed for indigestion. 7. Lantus insulin 15 units subcutaneous at bedtime. 8. Lispro insulin sliding scale with meals and at bedtime. 9. Lispro 20 units subcutaneous with meals. 10. Lactated Ringer's 125 mL an hour. 11. Lactobacillus 1 tablet by mouth twice daily. 12. Lisinopril 20 mg by mouth daily. 13. Metronidazole 50 mg by mouth twice daily. 14. Percocet 5/325 one tablet by mouth every 4 hours as needed for pain. 15. Vancomycin 1000 mg IV every 6 hours. ALLERGIES: No known drug allergies. FAMILY HISTORY: Father with a history of CVA. Mother with a history of diabetes mellitus. Brother with a history of diabetes. Maternal grandfather with a history of diabetes. SOCIAL HISTORY: A former smoker. Occasionally consumes alcohol. Denies recreational drug use. REVIEW OF SYSTEMS: I performed a 10-point review of systems. All the pertinent positives and negatives are mentioned in the history of present illness. The remaining review of systems are negative. PHYSICAL EXAMINATION: Vital Signs: Temperature 97.7, heart rate 86, respiratory rate 19, O2 sat 95% on room air, blood pressure 140/83. General Appearance: Alert, pleasant, appears to be in no acute distress. Head: Normocephalic, atraumatic. ENT: Pupils equal, reactive to light. Extraocular movements intact. No subconjunctival hemorrhage. Moist mucous membranes. No thrush. Neck: Supple. No lymphadenopathy. Neurological: Alert and oriented x4. Cranial nerves II through XII are grossly intact. Cardiovascular: Regular rate and rhythm. S1, S2 present. No murmurs, rubs, or gallops heard. Respiratory: No accessory muscle use. Lungs are clear to auscultation bilateral. Abdomen: Bowel sounds present. Abdomen large, soft, nontender, nondistended. Extremities: No lower extremity edema. DP/PT pulses are 1+ and symmetric. Musculoskeletal: No clubbing or cyanosis noted. The patient exhibits good strength in all extremities. Psychological: Calm and cooperative. Skin: No rash seen. DIAGNOSTIC STUDIES/LABORATORY DATA: CMP from 06/18/19: Sodium 137, potassium 4.4, chloride 104, CO2 of 26, BUN 17, creatinine 0.85, glucose 152. CBC from : White blood cell count 9.3, hemoglobin 12.9, hematocrit 38, platelet count 236. CRP on admission is 40.08. Please see impression and recommendations outlined above, these have been discussed with Dr. Marisabel Arzola. The case has been reviewed with my attending, Dr. Bahman Tavarez, who agrees with the plan of care. Reviewed by LAURENCE ABBASI 06/24/19 2049 [id number]/[facility] #: [id number] MTDLoid[place]
--- NOTE | 2019-06-19 19:28 | OP ---
DATE OF OPERATION: 06/19/19 - ROOM #415 DATE OF : 67 SURGEON: Dr. Hosea Perea. CAR SALES CONSULTANT: Dominic Onofre PA-C. PRE-OP DIAGNOSIS: Chronic osteomyelitis, right 2nd cuneiform with plantar ulcer. POST-OP DIAGNOSIS: Chronic osteomyelitis, right 2nd cuneiform with plantar ulcer. OPERATIVE PROCEDURE: Ostectomy, right mid foot. DESCRIPTION OF PROCEDURE: The patient was taken to the operating room where a longitudinal 6 cm incision was made along the medial arch. We traced this deep to the structures along the arch of the foot with a Bueno elevator and then found the large prominence of the middle cuneiform. retractors were placed around this bone and it was removed en block with a Bueno elevator. Just lateral to the 3rd cuneiform was rather prominent plantar wart and I removed this with an osteotome, shaving this bone. 3 L pulse lavage was performed as well as culture sent. We irrigated thoroughly closing in layers with superficial Monocryl and Prolene for the skin and a compression dressing applied. [id number]/[facility] #: [id number] [facility]
[2019-06-19] MEDS: Magnesium Hydroxide LIQ* 30 ML UDC PO SCH (20:26)
[2019-06-19] MEDS: Docusate CAP* 100 MG PO SCH (20:27)
[2019-06-19] MEDS: Insulin GLARGINE(*) 1 UNITS UNIT SUBCUT SCH (22:14)
[2019-06-20] MEDS: Cefepime 2 GM in Dextrose(*) 2 GM/50 ML BAG IV SCH ×2 (01:23→12:51)
[2019-06-20] MEDS: Vancomycin(*) 1,000 MG in NS 0.9% 250 ML* 250 ML IVPB SCH ×4 (04:22→22:10)
--- NOTE | 2019-06-20 08:23 | PN ---
Subjective Date of Service: 06/20/19 Interval History: Pt feels well. Post op pain well controlled, no new complaints Objective Active Medications: Acetaminophen (Tylenol Tab*) 650 mg PO Q4H PRN PRN Reason: FEVER/PAIN Last Admin: 06/19/19 20:27 Dose: 650 mg Aspirin (Aspirin Tab*) 325 mg PO DAILY [facility] Atenolol (Tenormin Tab*) 50 mg PO QAM [facility] Last Admin: 06/19/19 09:39 Dose: 50 mg Atorvastatin Calcium (Lipitor*) 40 mg PO QAM [facility] Last Admin: 06/19/19 09:39 Dose: 40 mg Dextrose (D50w Syringe 50 Ml*) 12.5 gm IV PUSH .FOR FS < 60 - SS PRN PRN Reason: FS < 60 Docusate Sodium (Colace Cap*) 100 mg PO BID [facility] Last Admin: 06/19/19 20:27 Dose: 100 mg Famotidine (Pepcid Tab*) 10 mg PO QAM PRN PRN Reason: INDIGESTION Cefepime HCl (Maxipime 2 Gm In Dextrose Duplex (*)) 2 gm in 50 mls @ 100 mls/ hr IV Q12H [facility] Last Admin: 06/20/19 01:23 Dose: 100 mls/hr Vancomycin HCl 1,000 mg/ (Sodium Chloride) 250 mls @ 166.667 mls/hr IVPB Q6H [facility] Last Admin: 06/20/19 04:22 Dose: 166.667 mls/hr Insulin Glargine (Lantus(*)) 15 units SUBCUT BEDTIME [facility] Last Admin: 06/19/19 22:14 Dose: Not Given Insulin Human Lispro (Humalog*) 0 units SUBCUT ACHS [facility]; Protocol Last Admin: 06/19/19 22:15 Dose: Not Given Insulin Human Lispro (Humalog*) 20 units SUBCUT AC [facility] Last Admin: 06/19/19 17:51 Dose: 20 units Lactobacillus Rhamnosus (Lactobacillus Acidophilus*) 1 tab PO BID [facility] Last Admin: 06/19/19 20:27 Dose: 1 tab Lisinopril (Prinivil Tab*) 20 mg PO QAM [facility] Last Admin: 06/19/19 09:39 Dose: 20 mg Magnesium Hydroxide (Milk Of Magnesia Liq*) 30 ml PO BID [facility] Last Admin: 06/19/19 20:26 Dose: 30 ml Magnesium Hydroxide (Milk Of Magnesia Liq*) 30 ml PO BID PRN PRN Reason: CONSTIPATION Metronidazole (Flagyl Tab*) 500 mg PO BID [facility] Last Admin: 06/19/19 20:27 Dose: 500 mg Morphine Sulfate (Morphine Inj (Syringe))*) 2 mg IV Q2H PRN PRN Reason: PAIN BREAKTHROUGH Ondansetron HCl (Zofran Inj*) 4 mg IV Q6H PRN PRN Reason: NAUSEA/VOMITING Oxycodone/Acetaminophen (Percocet 5/325 Tab*) 1 tab PO Q4H PRN PRN Reason: Pain mod to severe Oxycodone/Acetaminophen (Percocet 5/325 Tab*) 2 tab PO Q4H PRN PRN Reason: PAIN SEVERE Pharmacy Consult (Vancomycin Per Pharmacy*) 1 note FOLLOW UP . PRN PRN Reason: PER PROTOCOL Pharmacy Profile Note (Vancomycin Trough Check) 1 note FOLLOW UP ONCE ONE Stop: 06/20/19 09:31 Vital Signs - 8 hr 06/20/19 03:15 Temperature 98.1 F Pulse Rate 96 Respiratory 20 Rate Blood Pressure 132/82 (mmHg) O2 Sat by Pulse 95 Oximetry Oxygen Devices in Use Now: None Appearance: 54 yo M in nAD, AAOx3 Eyes: No Scleral Icterus, PERRLA Ears/Nose/Mouth/Throat: NL Teeth, Lips, Gums, Mucous Membranes Moist Neck: NL Appearance and Movements; NL JVP, Trachea Midline Respiratory: Symmetrical Chest Expansion and Respiratory Effort, Clear to Auscultation Cardiovascular: NL Sounds; No Murmurs; No JVD, RRR Abdominal: NL Sounds; No Tenderness; No Distention, No Hepatosplenomegaly Lymphatic: No Cervical Adenopathy Extremities: No Clubbing, Cyanosis, - - R post op foot in surgical dressings, not removed Skin: No Nodules or Sclerosis, - - left foot -s/p remote 1st and 5th toe amputation-well healed Neurological: Alert and Oriented x 3, NL Muscle Strength and Tone Result Diagrams: 06/16/19 23:05 06/18/19 05:54 Microbiology and Other Data: Microbiology 06/16/19 23:03 Aerobic Blood Culture - Preliminary Blood Venous No Growth Day 1 Anaerobic Blood Culture - Preliminary No Growth Day 1 06/16/19 23:09 Aerobic Blood Culture - Preliminary Blood Venous No Growth Day 1 Anaerobic Blood Culture - Preliminary No Growth Day 1 Assess/Plan/Problems-Billing Mr Bundy is a 54 yo M who has a h/o type II DM, Charcot foot, HTN and HLD who presented to the ER after being contacted that he had positive blood cultures that were drawn as an outpatient for evaluation of fever. - Patient Problems (1) MRSA bacteremia Comment: Pt with 2 of 4 bottles positive for MRSA from 06/14/19. Repeat BC no growth so far Continue vancomycin. ID consult appreciated. TTE showed no vegetation. It is unlikely there is IE as his cultures cleared very quickly. (2) Osteomyelitis of right foot Comment: s/p ostectomy by Dr. Perea on 06/19/19 Continue vancomycin, cefepime and flagyl. ID consult cont (3) HLD (hyperlipidemia) Comment: Continue lipitor. (4) HTN (hypertension) Comment: cont lisinopril, atenolol. (5) Type II diabetes mellitus Comment: BS this AM elevated secondary to reduced dose of lantus last night in anticipation of OR today. will restart lantus 30 units at bedtime (6) DVT prophylaxis Comment: SQ heparin-will restart post op Status and Disposition: inpatient
[2019-06-20] MEDS ORDERED: Insulin GLARGINE(*) 1 UNITS UNIT SUBCUT ONE (08:24)
[2019-06-20] MEDS: Insulin LISPRO* 1 UNITS UNIT SUBCUT SCH ×7 (09:08→22:39)
[2019-06-20] MEDS: Atorvastatin* 40 MG TAB PO SCH (09:11)
[2019-06-20] MEDS: Docusate CAP* 100 MG PO SCH ×2 (09:11→22:20)
[2019-06-20] MEDS: metroNIDAZOLE TAB* 250 MG PO SCH ×2 (09:11→22:21)
[2019-06-20] MEDS: Lactobacillus Acidophilus* 1 TAB PO SCH ×2 (09:11→22:21)
[2019-06-20] MEDS: Lisinopril TAB* 10 MG PO SCH (09:11)
[2019-06-20] MEDS: Atenolol TAB* 50 MG PO SCH (09:11)
[2019-06-20] MEDS: Aspirin TAB* 325 MG PO SCH (09:12)
[2019-06-20] MEDS: Magnesium Hydroxide LIQ* 30 ML UDC PO SCH ×2 (09:12→22:20)
[2019-06-20] MEDS ORDERED: Vancomycin Trough Check NOTE FOLLOW UP ONE (09:30)
[2019-06-20] MEDS: Heparin VIAL(*) 5000 UNITS/ML VIAL (FIVE THOUSAND) SUBCUT SCH ×2 (12:54→22:38)
[2019-06-20] MEDS: Insulin GLARGINE(*) 1 UNITS UNIT SUBCUT SCH (22:30)
[2019-06-21] MEDS: Cefepime 2 GM in Dextrose(*) 2 GM/50 ML BAG IV SCH (00:04)
[2019-06-21] MEDS ORDERED: Lidocaine 2.5%/Prilocain 2.5%* 5 GM TUBE TOPICAL ONE (05:25)
[2019-06-21] MEDS: Heparin VIAL(*) 5000 UNITS/ML VIAL (FIVE THOUSAND) SUBCUT SCH ×3 (06:03→20:39)
[2019-06-21 06:28] LABS: Hematocrit 34 % (42-52); Hemoglobin 11.5 g/dL (14.0-18.0); Mean Corpuscular HGB Conc 34 g/dL (31-36); Mean Corpuscular Hemoglobin 31 pg (27-31); Mean Corpuscular Volume 89 fL (80-94); Mean Platelet Volume 6.5 fL (7.4-10.4); Platelet Count 256 10^3/uL (150-450); Red Blood Count 3.78 10^6 /uL (4.18-5.48); Red Cell Distribution Width 14 % (10-15); White Blood Count 9.1 10^3/uL (3.5-10.8)
[2019-06-21 06:30] LABS: ABS Eosinophils 0.4 10^3/ul (0-0.6); ABS Neutrophils 5.7 10^3/ul (1.5-7.7)
[2019-06-21] MEDS: Vancomycin(*) 1,000 MG in NS 0.9% 250 ML* 250 ML IVPB SCH ×3 (06:30→18:19)
[2019-06-21 06:42] LABS: BUN/Creatinine Ratio 19.2 (8-20); Calcium 9.5 mg/dL (8.6-10.3); EGFR Non-African American 112.4 (>60); Potassium 4.4 mmol/L (3.5-5.0)
[2019-06-21 06:51] LABS: Eosinophil % 3.9 %; Lymphocyte % 21.7 %
[2019-06-21] MEDS: Lactobacillus Acidophilus* 1 TAB PO SCH ×2 (09:16→20:39)
[2019-06-21] MEDS: metroNIDAZOLE TAB* 250 MG PO SCH (09:16)
[2019-06-21] MEDS: Atorvastatin* 40 MG TAB PO SCH (09:17)
[2019-06-21] MEDS: Atenolol TAB* 50 MG PO SCH (09:17)
[2019-06-21] MEDS: Lisinopril TAB* 10 MG PO SCH (09:17)
[2019-06-21] MEDS: Insulin LISPRO* 1 UNITS UNIT SUBCUT SCH ×7 (09:17→20:47)
[2019-06-21] MEDS: Aspirin TAB* 325 MG PO SCH (09:17)
[2019-06-21] MEDS: Magnesium Hydroxide LIQ* 30 ML UDC PO SCH ×2 (09:19→20:48)
[2019-06-21] MEDS: Docusate CAP* 100 MG PO SCH ×2 (09:19→20:47)
--- NOTE | 2019-06-21 09:58 | PN ---
Subjective Date of Service: 06/21/19 Interval History: Pt feels well. C/o rare shooting pain in r foot that lasts seconds and resolves spontaneously Objective Active Medications: Acetaminophen (Tylenol Tab*) 650 mg PO Q4H PRN PRN Reason: FEVER/PAIN Last Admin: 06/19/19 20:27 Dose: 650 mg Aspirin (Aspirin Tab*) 325 mg PO DAILY [facility] Last Admin: 06/21/19 09:17 Dose: 325 mg Atenolol (Tenormin Tab*) 50 mg PO QAM [facility] Last Admin: 06/21/19 09:17 Dose: 50 mg Atorvastatin Calcium (Lipitor*) 40 mg PO QAM [facility] Last Admin: 06/21/19 09:17 Dose: 40 mg Dextrose (D50w Syringe 50 Ml*) 12.5 gm IV PUSH .FOR FS < 60 - SS PRN PRN Reason: FS < 60 Docusate Sodium (Colace Cap*) 100 mg PO BID [facility] Last Admin: 06/21/19 09:19 Dose: Not Given Famotidine (Pepcid Tab*) 10 mg PO QAM PRN PRN Reason: INDIGESTION Heparin Sodium (Porcine) (Heparin Vial(*)) 5,000 units SUBCUT Q8HR [facility] Last Admin: 06/21/19 06:03 Dose: 5,000 units Cefepime HCl (Maxipime 2 Gm In Dextrose Duplex (*)) 2 gm in 50 mls @ 100 mls/ hr IV Q12H [facility] Last Admin: 06/21/19 00:04 Dose: 100 mls/hr Vancomycin HCl 1,000 mg/ (Sodium Chloride) 250 mls @ 166.667 mls/hr IVPB 0030, 0630,1230,1830 [facility] Insulin Glargine (Lantus(*)) 30 units SUBCUT BEDTIME [facility] Last Admin: 06/20/19 22:30 Dose: 30 units Insulin Human Lispro (Humalog*) 0 units SUBCUT ACHS [facility]; Protocol Last Admin: 06/21/19 09:17 Dose: 2 unit Insulin Human Lispro (Humalog*) 20 units SUBCUT AC [facility] Last Admin: 06/21/19 09:18 Dose: 20 units Lactobacillus Rhamnosus (Lactobacillus Acidophilus*) 1 tab PO BID [facility] Last Admin: 06/21/19 09:16 Dose: 1 tab Lisinopril (Prinivil Tab*) 20 mg PO QAM [facility] Last Admin: 06/21/19 09:17 Dose: 20 mg Magnesium Hydroxide (Milk Of Magnesia Liq*) 30 ml PO BID [facility] Last Admin: 06/21/19 09:19 Dose: Not Given Magnesium Hydroxide (Milk Of Magnesia Liq*) 30 ml PO BID PRN PRN Reason: CONSTIPATION Metronidazole (Flagyl Tab*) 500 mg PO BID [facility] Last Admin: 06/21/19 09:16 Dose: 500 mg Morphine Sulfate (Morphine Inj (Syringe))*) 2 mg IV Q2H PRN PRN Reason: PAIN BREAKTHROUGH Ondansetron HCl (Zofran Inj*) 4 mg IV Q6H PRN PRN Reason: NAUSEA/VOMITING Oxycodone/Acetaminophen (Percocet 5/325 Tab*) 1 tab PO Q4H PRN PRN Reason: Pain mod to severe Oxycodone/Acetaminophen (Percocet 5/325 Tab*) 2 tab PO Q4H PRN PRN Reason: PAIN SEVERE Pharmacy Consult (Vancomycin Per Pharmacy*) 1 note FOLLOW UP . PRN PRN Reason: PER PROTOCOL Pharmacy Profile Note (Vancomycin Trough Check) 1 note FOLLOW UP 929 ONE Stop: 06/22/19 12:01 Vital Signs - 8 hr 06/21/19 04:02 Temperature 97.5 F Pulse Rate 88 Respiratory 20 Rate Blood Pressure 119/73 (mmHg) O2 Sat by Pulse 96 Oximetry Oxygen Devices in Use Now: None Appearance: 54 yo M in nAD, aAOx3 Eyes: No Scleral Icterus, PERRLA Ears/Nose/Mouth/Throat: NL Teeth, Lips, Gums, Mucous Membranes Moist Neck: NL Appearance and Movements; NL JVP, Trachea Midline Respiratory: Symmetrical Chest Expansion and Respiratory Effort, Clear to Auscultation Cardiovascular: NL Sounds; No Murmurs; No JVD, RRR, No Edema Abdominal: NL Sounds; No Tenderness; No Distention, No Hepatosplenomegaly Lymphatic: No Cervical Adenopathy Extremities: No Edema, No Clubbing, Cyanosis Skin: No Rash or Ulcers, No Nodules or Sclerosis, - - R foot in post op dressings, dry, dressings not removed Neurological: Alert and Oriented x 3, NL Muscle Strength and Tone Result Diagrams: 06/21/19 05:57 06/21/19 05:57 Microbiology and Other Data: Microbiology 06/16/19 23:03 Aerobic Blood Culture - Preliminary Blood Venous No Growth Day 1 Anaerobic Blood Culture - Preliminary No Growth Day 1 06/16/19 23:09 Aerobic Blood Culture - Preliminary Blood Venous No Growth Day 1 Anaerobic Blood Culture - Preliminary No Growth Day 1 Assess/Plan/Problems-Billing Mr Bundy is a 54 yo M who has a h/o type II DM, Charcot foot, HTN and HLD who presented to the ER after being contacted that he had positive blood cultures that were drawn as an outpatient for evaluation of fever. - Patient Problems (1) MRSA bacteremia Comment: Pt with 2 of 4 bottles positive for MRSA from 06/14/19. Repeat BC no growth so far Continue vancomycin. ID consult appreciated. PICC to be placed today. TTE showed no vegetation. It is unlikely there is IE as his cultures cleared very quickly. cont Cefepime/Vanc Flagyl and await ID's recommendations for d/c antibiotics (2) Osteomyelitis of right foot Comment: s/p ostectomy by Dr. Perea on 06/19/19 Continue vancomycin, cefepime and flagyl. ID consult cont (3) HLD (hyperlipidemia) Comment: Continue lipitor. (4) HTN (hypertension) Comment: cont lisinopril, atenolol. (5) Type II diabetes mellitus Comment: BS under better control today. cont lantus 30 units at bedtime (6) DVT prophylaxis Comment: SQ heparin Status and Disposition: inpatient
--- NOTE | 2019-06-21 13:36 | PN ---
Progress Note - Progress Note Date of Service: 06/21/19 SOAP: Subjective: []Pt seen at bedside, he feels well. Right foot is not painful. Denies fever, chills, nausea, abd pain, CP, SOB. Objective: []Gen: NAD RLE: Dressing CDI, no erythema proximal or distal. Insensate toes, + f/e at MTPs , cap refill less than two seconds distally. Calves supple and nontender without erythema, edema or palpable cords Assessment: [Chronic osteomyelitis, right 2nd cuneiform with plantar ulcer POD 2 sp Ostectomy, right mid foot. Plan: []NWB RLE cont abx per ID: vancomycin likely x 4 weeks Vital Signs Temp 98.1 F 06/21/19 12:01 Pulse 86 06/21/19 12:01 Resp 18 06/21/19 12:01 BP 129/73 06/21/19 12:01 Pulse Ox 98 06/21/19 12:01 Intake & Output 06/20/19 06/21/19 06/21/19 18:59 06:59 18:59 Intake Total 830 732 720 Balance 830 732 720 Intake: IV Fluids 350 35 ABX - CEFEPIME 100 ABX - VANCOMYCIN 250 NS (0.9%) 35 IVPB 337 NS (0.9%) 337 Oral 480 360 720 Other: # Bowel Movements 0 # Voids 2 Laboratory Last Values WBC 9.1 10^3/uL (3.5-10.8) 06/21/19 05:57 RBC 3.78 10^6 /uL (4.18-5.48) L 06/21/19 05:57 Hgb 11.5 g/dL (14.0-18.0) L 06/21/19 05:57 Hct 34 % (42-52) L 06/21/19 05:57 MCV 89 fL (80-94) 06/21/19 05:57 MCH 31 pg (27-31) 06/21/19 05:57 MCHC 34 g/dL (31-36) 06/21/19 05:57 RDW 14 % (10-15) 06/21/19 05:57 Plt Count 256 10^3/uL (150-450) 06/21/19 05:57 MPV 6.5 fL (7.4-10.4) L 06/21/19 05:57 Neut % (Auto) 63.4 % 06/21/19 05:57 Lymph % (Auto) 21.7 % 06/21/19 05:57 [place] % (Auto) 10.6 % 06/21/19 05:57 Eos % (Auto) 3.9 % 06/21/19 05:57 Baso % (Auto) 0.4 % 06/21/19 05:57 Absolute Neuts (auto) 5.7 10^3/ul (1.5-7.7) 06/21/19 05:57 Absolute Lymphs (auto) 2.0 10^3/ul (1.0-4.8) 06/21/19 05:57 Absolute Monos (auto) 1.0 10^3/ul (0-0.8) H 06/21/19 05:57 Absolute Eos (auto) 0.4 10^3/ul (0-0.6) 06/21/19 05:57 Absolute Basos (auto) 0.0 10^3/ul (0-0.2) 06/21/19 05:57 Absolute Nucleated RBC 0.0 10^3/ul 06/21/19 05:57 Nucleated RBC % 0.0 06/21/19 05:57 INR (Anticoag Therapy) 1.11 (0.82-1.09) H 06/16/19 23:05 Sodium 135 mmol/L (135-145) 06/21/19 05:57 Potassium 4.4 mmol/L (3.5-5.0) 06/21/19 05:57 Chloride 104 mmol/L (101-111) 06/21/19 05:57 Carbon Dioxide 22 mmol/L (22-32) 06/21/19 05:57 Anion Gap 9 mmol/L (2-11) 06/21/19 05:57 BUN 14 mg/dL (6-24) 06/21/19 05:57 Creatinine 0.73 mg/dL (0.67-1.17) 06/21/19 05:57 Est GFR ( Amer) 136.0 (>60) 06/21/19 05:57 Est GFR (Non-Af Amer) 112.4 (>60) 06/21/19 05:57 BUN/Creatinine Ratio 19.2 (8-20) 06/21/19 05:57 Glucose 250 mg/dL (70-100) H 06/21/19 05:57 POC Glucose (mg/dL) 206 mg/dL (70-100) H 06/21/19 12:34 Lactic Acid 1.5 mmol/L (0.5-2.0) 06/16/19 23:05 Calcium 9.5 mg/dL (8.6-10.3) 06/21/19 05:57 Total Bilirubin 0.50 mg/dL (0.2-1.0) 06/16/19 23:05 AST 23 U/L (13-39) 06/16/19 23:05 ALT 26 U/L (7-52) 06/16/19 23:05 Alkaline Phosphatase 69 U/L (34-104) 06/16/19 23:05 C-Reactive Protein 40.08 mg/L (<8.01) H 06/16/19 23:05 Total Protein 7.9 g/dL (6.4-8.9) 06/16/19 23:05 Albumin 4.3 g/dL (3.2-5.2) 06/16/19 23:05 Globulin 3.6 g/dL (2-4) 06/16/19 23:05 Albumin/Globulin Ratio 1.2 (1-3) 06/16/19 23:05 Urine Color Yellow 06/17/19 09:34 Urine Appearance Clear 06/17/19 09:34 Urine pH 5.0 (5-9) 06/17/19 09:34 Ur Specific [place] 1.019 (1.010-1.030) 06/17/19 09:34 Urine Protein Negative (Negative) 06/17/19 09:34 Urine Ketones 1+ (Negative) A 06/17/19 09:34 Urine Blood Negative (Negative) 06/17/19 09:34 Urine Nitrate Negative (Negative) 06/17/19 09:34 Urine Bilirubin Negative (Negative) 06/17/19 09:34 Urine Urobilinogen Negative (Negative) 06/17/19 09:34 Ur Leukocyte Esterase Negative (Negative) 06/17/19 09:34 Urine Glucose Negative (Negative) 06/17/19 09:34 Vancomycin Trough 11.4 mcg/mL 06/20/19 09:39
[2019-06-21] MEDS: Insulin GLARGINE(*) 1 UNITS UNIT SUBCUT SCH (20:45)
[2019-06-22] MEDS: Vancomycin(*) 1,000 MG in NS 0.9% 250 ML* 250 ML IVPB SCH ×3 (00:45→13:19)
[2019-06-22] MEDS: Heparin VIAL(*) 5000 UNITS/ML VIAL (FIVE THOUSAND) SUBCUT SCH ×2 (07:21→13:48)
[2019-06-22] MEDS: Docusate CAP* 100 MG PO SCH (09:51)
[2019-06-22] MEDS: Magnesium Hydroxide LIQ* 30 ML UDC PO SCH (09:51)
[2019-06-22] MEDS: Atenolol TAB* 50 MG PO SCH (09:51)
[2019-06-22] MEDS: Atorvastatin* 40 MG TAB PO SCH (09:51)
[2019-06-22] MEDS: Insulin LISPRO* 1 UNITS UNIT SUBCUT SCH ×4 (09:51→13:20)
[2019-06-22] MEDS: Aspirin TAB* 325 MG PO SCH (09:51)
[2019-06-22] MEDS: Lisinopril TAB* 10 MG PO SCH (09:51)
[2019-06-22] MEDS: Lactobacillus Acidophilus* 1 TAB PO SCH (09:51)
[2019-06-22] MEDS ORDERED: Vancomycin Trough Check NOTE FOLLOW UP ONE (12:00)
--- NOTE | 2019-06-22 13:42 | PN ---
Subjective Date of Service: 06/22/19 Interval History: Pt feels well, ready to go home Objective Active Medications: Acetaminophen (Tylenol Tab*) 650 mg PO Q4H PRN PRN Reason: FEVER/PAIN Last Admin: 06/19/19 20:27 Dose: 650 mg Aspirin (Aspirin Tab*) 325 mg PO DAILY [facility] Last Admin: 06/22/19 09:51 Dose: 325 mg Atenolol (Tenormin Tab*) 50 mg PO QAM [facility] Last Admin: 06/22/19 09:51 Dose: 50 mg Atorvastatin Calcium (Lipitor*) 40 mg PO QAM [facility] Last Admin: 06/22/19 09:51 Dose: 40 mg Dextrose (D50w Syringe 50 Ml*) 12.5 gm IV PUSH .FOR FS < 60 - SS PRN PRN Reason: FS < 60 Docusate Sodium (Colace Cap*) 100 mg PO BID [facility] Last Admin: 06/22/19 09:51 Dose: 100 mg Famotidine (Pepcid Tab*) 10 mg PO QAM PRN PRN Reason: INDIGESTION Heparin Sodium (Porcine) (Heparin Vial(*)) 5,000 units SUBCUT Q8HR [facility] Last Admin: 06/22/19 07:21 Dose: 5,000 units Heparin Sodium (Porcine) (Heparin Flush Picc/Ml/Cvc(*)) 1 - 3 ml FLUSH 0600, 1800 [facility]; Protocol Last Admin: 06/22/19 09:52 Dose: 1 ml Vancomycin HCl 1,000 mg/ (Sodium Chloride) 250 mls @ 166.667 mls/hr IVPB 0030, 0630,1230,1830 [facility] Last Admin: 06/22/19 13:19 Dose: 166.667 mls/hr Insulin Glargine (Lantus(*)) 30 units SUBCUT BEDTIME [facility] Last Admin: 06/21/19 20:45 Dose: 30 units Insulin Human Lispro (Humalog*) 0 units SUBCUT ACHS [facility]; Protocol Last Admin: 06/22/19 13:19 Dose: 6 unit Insulin Human Lispro (Humalog*) 20 units SUBCUT AC [facility] Last Admin: 06/22/19 13:20 Dose: 20 units Lactobacillus Rhamnosus (Lactobacillus Acidophilus*) 1 tab PO BID [facility] Last Admin: 06/22/19 09:51 Dose: 1 tab Lisinopril (Prinivil Tab*) 20 mg PO QAM [facility] Last Admin: 06/22/19 09:51 Dose: 20 mg Magnesium Hydroxide (Milk Of Magnesia Liq*) 30 ml PO BID [facility] Last Admin: 06/22/19 09:51 Dose: 30 ml Magnesium Hydroxide (Milk Of Magnesia Liq*) 30 ml PO BID PRN PRN Reason: CONSTIPATION Morphine Sulfate (Morphine Inj (Syringe))*) 2 mg IV Q2H PRN PRN Reason: PAIN BREAKTHROUGH Ondansetron HCl (Zofran Inj*) 4 mg IV Q6H PRN PRN Reason: NAUSEA/VOMITING Oxycodone/Acetaminophen (Percocet 5/325 Tab*) 1 tab PO Q4H PRN PRN Reason: Pain mod to severe Oxycodone/Acetaminophen (Percocet 5/325 Tab*) 2 tab PO Q4H PRN PRN Reason: PAIN SEVERE Pharmacy Consult (Vancomycin Per Pharmacy*) 1 note FOLLOW UP . PRN PRN Reason: PER PROTOCOL Vital Signs - 8 hr 06/22/19 06/22/19 06/22/19 08:00 08:17 12:25 Temperature 98.3 F 98.2 F Pulse Rate 85 82 Respiratory 18 16 Rate Blood Pressure 146/77 128/74 (mmHg) O2 Sat by Pulse 96 97 96 Oximetry Oxygen Devices in Use Now: None Appearance: 54 yo M in nAD, aAOx3 Eyes: No Scleral Icterus, PERRLA Ears/Nose/Mouth/Throat: NL Teeth, Lips, Gums, Mucous Membranes Moist Neck: NL Appearance and Movements; NL JVP, Trachea Midline Respiratory: Symmetrical Chest Expansion and Respiratory Effort, Clear to Auscultation Cardiovascular: NL Sounds; No Murmurs; No JVD Abdominal: NL Sounds; No Tenderness; No Distention Lymphatic: No Cervical Adenopathy Extremities: No Edema, No Clubbing, Cyanosis Skin: No Nodules or Sclerosis, - - r foot in post op dressings, not removed Neurological: Alert and Oriented x 3, NL Muscle Strength and Tone Result Diagrams: 06/21/19 05:57 06/21/19 05:57 Microbiology and Other Data: Microbiology 06/16/19 23:03 Aerobic Blood Culture - Preliminary Blood Venous No Growth Day 1 Anaerobic Blood Culture - Preliminary No Growth Day 1 06/16/19 23:09 Aerobic Blood Culture - Preliminary Blood Venous No Growth Day 1 Anaerobic Blood Culture - Preliminary No Growth Day 1 Assess/Plan/Problems-Billing Mr Bundy is a 54 yo M who has a h/o type II DM, Charcot foot, HTN and HLD who presented to the ER after being contacted that he had positive blood cultures that were drawn as an outpatient for evaluation of fever. - Patient Problems (1) MRSA bacteremia Comment: Pt with 2 of 4 bottles positive for MRSA from 06/14/19. Repeat BC no growth so far Continue vancomycin. ID consult appreciated. PICC placed TTE showed no vegetation. It is unlikely there is IE as his cultures cleared very quickly. cont Vanc 2000 mg IV Q12H x 6 weeks as per ID's recommendations (2) Osteomyelitis of right foot Comment: s/p ostectomy by Dr. Perea on 06/19/19 Continue vancomycin (3) HLD (hyperlipidemia) Comment: Continue lipitor. (4) HTN (hypertension) Comment: cont lisinopril, atenolol. (5) Type II diabetes mellitus Comment: cont lantus 30 units at bedtime (6) DVT prophylaxis Comment: SQ heparin Status and Disposition: inpatient
--- NOTE | 2019-06-22 14:21 | PN ---
Progress Note - Progress Note Date of Service: 06/22/19 SOAP: Subjective: []Pt seen at bedside with Dr Perea. He feels well without RLE pain. Denies CP, SOB, fever or chills. Objective: []Gen: NAD RLE: Dressing changed, incision CDI without erythema or discharge. + f/e at MTPs , cap refill less than two seconds distally. Assessment: [Chronic osteomyelitis, right 2nd cuneiform with plantar ulcer POD 3 sp Ostectomy, right mid foot. Plan: []NWB RLE Keep dressing CDI until follow up with Dr Perea in 1 week cont abx per ID: vancomycin likely x 4 weeks Vital Signs Temp 98.2 F 06/22/19 12:25 Pulse 82 06/22/19 12:25 Resp 16 06/22/19 08:17 BP 128/74 06/22/19 12:25 Pulse Ox 96 06/22/19 12:25 Intake & Output 06/21/19 06/22/19 06/22/19 18:59 06:59 18:59 Intake Total 1830 1250 1050 Output Total 400 Balance 2254 300 0295 Intake: IV Fluids 270 15 ABX - VANCOMYCIN 250 15 NS (0.9%) 20 IVPB 275 ABX - VANCOMYCIN 275 Oral 6033 090 4283 Output: Urine 400 Other: Estimated Void Medium Date of Last Bowel [id number] unknown Movement # Bowel Movements unknown # Voids 2 2 Laboratory Last Values WBC 9.1 10^3/uL (3.5-10.8) 06/21/19 05:57 RBC 3.78 10^6 /uL (4.18-5.48) L 06/21/19 05:57 Hgb 11.5 g/dL (14.0-18.0) L 06/21/19 05:57 Hct 34 % (42-52) L 06/21/19 05:57 MCV 89 fL (80-94) 06/21/19 05:57 MCH 31 pg (27-31) 06/21/19 05:57 MCHC 34 g/dL (31-36) 06/21/19 05:57 RDW 14 % (10-15) 06/21/19 05:57 Plt Count 256 10^3/uL (150-450) 06/21/19 05:57 MPV 6.5 fL (7.4-10.4) L 06/21/19 05:57 Neut % (Auto) 63.4 % 06/21/19 05:57 Lymph % (Auto) 21.7 % 06/21/19 05:57 [place] % (Auto) 10.6 % 06/21/19 05:57 Eos % (Auto) 3.9 % 06/21/19 05:57 Baso % (Auto) 0.4 % 06/21/19 05:57 Absolute Neuts (auto) 5.7 10^3/ul (1.5-7.7) 06/21/19 05:57 Absolute Lymphs (auto) 2.0 10^3/ul (1.0-4.8) 06/21/19 05:57 Absolute Monos (auto) 1.0 10^3/ul (0-0.8) H 06/21/19 05:57 Absolute Eos (auto) 0.4 10^3/ul (0-0.6) 06/21/19 05:57 Absolute Basos (auto) 0.0 10^3/ul (0-0.2) 06/21/19 05:57 Absolute Nucleated RBC 0.0 10^3/ul 06/21/19 05:57 Nucleated RBC % 0.0 06/21/19 05:57 INR (Anticoag Therapy) 1.11 (0.82-1.09) H 06/16/19 23:05 Sodium 135 mmol/L (135-145) 06/21/19 05:57 Potassium 4.4 mmol/L (3.5-5.0) 06/21/19 05:57 Chloride 104 mmol/L (101-111) 06/21/19 05:57 Carbon Dioxide 22 mmol/L (22-32) 06/21/19 05:57 Anion Gap 9 mmol/L (2-11) 06/21/19 05:57 BUN 14 mg/dL (6-24) 06/21/19 05:57 Creatinine 0.73 mg/dL (0.67-1.17) 06/21/19 05:57 Est GFR ( Amer) 136.0 (>60) 06/21/19 05:57 Est GFR (Non-Af Amer) 112.4 (>60) 06/21/19 05:57 BUN/Creatinine Ratio 19.2 (8-20) 06/21/19 05:57 Glucose 250 mg/dL (70-100) H 06/21/19 05:57 POC Glucose (mg/dL) 255 mg/dL (70-100) H 06/22/19 12:13 Lactic Acid 1.5 mmol/L (0.5-2.0) 06/16/19 23:05 Calcium 9.5 mg/dL (8.6-10.3) 06/21/19 05:57 Total Bilirubin 0.50 mg/dL (0.2-1.0) 06/16/19 23:05 AST 23 U/L (13-39) 06/16/19 23:05 ALT 26 U/L (7-52) 06/16/19 23:05 Alkaline Phosphatase 69 U/L (34-104) 06/16/19 23:05 C-Reactive Protein 40.08 mg/L (<8.01) H 06/16/19 23:05 Total Protein 7.9 g/dL (6.4-8.9) 06/16/19 23:05 Albumin 4.3 g/dL (3.2-5.2) 06/16/19 23:05 Globulin 3.6 g/dL (2-4) 06/16/19 23:05 Albumin/Globulin Ratio 1.2 (1-3) 06/16/19 23:05 Urine Color Yellow 06/17/19 09:34 Urine Appearance Clear 06/17/19 09:34 Urine pH 5.0 (5-9) 06/17/19 09:34 Ur Specific [place] 1.019 (1.010-1.030) 06/17/19 09:34 Urine Protein Negative (Negative) 06/17/19 09:34 Urine Ketones 1+ (Negative) A 06/17/19 09:34 Urine Blood Negative (Negative) 06/17/19 09:34 Urine Nitrate Negative (Negative) 06/17/19 09:34 Urine Bilirubin Negative (Negative) 06/17/19 09:34 Urine Urobilinogen Negative (Negative) 06/17/19 09:34 Ur Leukocyte Esterase Negative (Negative) 06/17/19 09:34 Urine Glucose Negative (Negative) 06/17/19 09:34 Vancomycin Trough 10.6 mcg/mL 06/22/19 12:10
[2019-06-22 15:51] VITALS: BP 128/72
--- NOTE | 2019-06-22 16:12 | PN ---
Progress Note - Progress Note Date of Service: 06/22/19 SOAP: Subjective: CC: Right foot infection HPI: Mr. Bundy is a 54 yo male with PMH significant for DM2, right charcot foot with hx osteomyelitis, HTN, HLD, and obesity; who presented to the hospital for a right foot infection. States that he is feeling well. He will be staying in the area while he is getting IV infusions. Denies fever, chills, nausea, vomiting, or diarrhea. Objective: Vital Signs - 8 hr 06/22/19 06/22/19 06/22/19 08:17 12:25 15:50 Temperature 98.3 F 98.2 F 97.8 F Pulse Rate 85 82 72 Respiratory 16 16 Rate Blood Pressure 146/77 128/74 128/72 (mmHg) O2 Sat by Pulse 97 96 96 Oximetry Physical Exam: General: NAD, sitting up in bed Neurological: Alert and Oriented x4 HEENT: Moist MM, no thrush Cardiovascular: Heart rate regular Respiratory: Lung sound clear bilateral Abdominal: Bowel sounds present; ABD soft, non tender and non distended Skin: Dressing to right foot CDI, no surrounding erythema Laboratory Last Values WBC 9.1 10^3/uL (3.5-10.8) 06/21/19 05:57 RBC 3.78 10^6 /uL (4.18-5.48) L 06/21/19 05:57 Hgb 11.5 g/dL (14.0-18.0) L 06/21/19 05:57 Hct 34 % (42-52) L 06/21/19 05:57 MCV 89 fL (80-94) 06/21/19 05:57 MCH 31 pg (27-31) 06/21/19 05:57 MCHC 34 g/dL (31-36) 06/21/19 05:57 RDW 14 % (10-15) 06/21/19 05:57 Plt Count 256 10^3/uL (150-450) 06/21/19 05:57 MPV 6.5 fL (7.4-10.4) L 06/21/19 05:57 Neut % (Auto) 63.4 % 06/21/19 05:57 Lymph % (Auto) 21.7 % 06/21/19 05:57 [place] % (Auto) 10.6 % 06/21/19 05:57 Eos % (Auto) 3.9 % 06/21/19 05:57 Baso % (Auto) 0.4 % 06/21/19 05:57 Absolute Neuts (auto) 5.7 10^3/ul (1.5-7.7) 06/21/19 05:57 Absolute Lymphs (auto) 2.0 10^3/ul (1.0-4.8) 06/21/19 05:57 Absolute Monos (auto) 1.0 10^3/ul (0-0.8) H 06/21/19 05:57 Absolute Eos (auto) 0.4 10^3/ul (0-0.6) 06/21/19 05:57 Absolute Basos (auto) 0.0 10^3/ul (0-0.2) 06/21/19 05:57 Absolute Nucleated RBC 0.0 10^3/ul 06/21/19 05:57 Nucleated RBC % 0.0 06/21/19 05:57 INR (Anticoag Therapy) 1.11 (0.82-1.09) H 06/16/19 23:05 Sodium 135 mmol/L (135-145) 06/21/19 05:57 Potassium 4.4 mmol/L (3.5-5.0) 06/21/19 05:57 Chloride 104 mmol/L (101-111) 06/21/19 05:57 Carbon Dioxide 22 mmol/L (22-32) 06/21/19 05:57 Anion Gap 9 mmol/L (2-11) 06/21/19 05:57 BUN 14 mg/dL (6-24) 06/21/19 05:57 Creatinine 0.73 mg/dL (0.67-1.17) 06/21/19 05:57 Est GFR ( Amer) 136.0 (>60) 06/21/19 05:57 Est GFR (Non-Af Amer) 112.4 (>60) 06/21/19 05:57 BUN/Creatinine Ratio 19.2 (8-20) 06/21/19 05:57 Glucose 250 mg/dL (70-100) H 06/21/19 05:57 POC Glucose (mg/dL) 255 mg/dL (70-100) H 06/22/19 12:13 Lactic Acid 1.5 mmol/L (0.5-2.0) 06/16/19 23:05 Calcium 9.5 mg/dL (8.6-10.3) 06/21/19 05:57 Total Bilirubin 0.50 mg/dL (0.2-1.0) 06/16/19 23:05 AST 23 U/L (13-39) 06/16/19 23:05 ALT 26 U/L (7-52) 06/16/19 23:05 Alkaline Phosphatase 69 U/L (34-104) 06/16/19 23:05 C-Reactive Protein 40.08 mg/L (<8.01) H 06/16/19 23:05 Total Protein 7.9 g/dL (6.4-8.9) 06/16/19 23:05 Albumin 4.3 g/dL (3.2-5.2) 06/16/19 23:05 Globulin 3.6 g/dL (2-4) 06/16/19 23:05 Albumin/Globulin Ratio 1.2 (1-3) 06/16/19 23:05 Urine Color Yellow 06/17/19 09:34 Urine Appearance Clear 06/17/19 09:34 Urine pH 5.0 (5-9) 06/17/19 09:34 Ur Specific [place] 1.019 (1.010-1.030) 06/17/19 09:34 Urine Protein Negative (Negative) 06/17/19 09:34 Urine Ketones 1+ (Negative) A 06/17/19 09:34 Urine Blood Negative (Negative) 06/17/19 09:34 Urine Nitrate Negative (Negative) 06/17/19 09:34 Urine Bilirubin Negative (Negative) 06/17/19 09:34 Urine Urobilinogen Negative (Negative) 06/17/19 09:34 Ur Leukocyte Esterase Negative (Negative) 06/17/19 09:34 Urine Glucose Negative (Negative) 06/17/19 09:34 Vancomycin Trough 10.6 mcg/mL 06/22/19 12:10 Microbiology 06/19/19 11:45 Gram Stain - Final Foot Right Wound Culture - Preliminary Staphylococcus Aureus 06/19/19 11:45 Anaerobic Culture - Preliminary Tissue 06/16/19 23:09 Aerobic Blood Culture - Final Blood Venous No Growth Day 5 Anaerobic Blood Culture - Final No Growth Day 5 06/16/19 23:03 Aerobic Blood Culture - Final Blood Venous No Growth Day 5 Anaerobic Blood Culture - Final No Growth Day 5 06/19/19 11:45 Acid Fast Bacilli Smear - Final Wound - Other Assessment: 1. Right foot chronic osteomyelitis. S/P ostectomy right mid foot with Dr. Perea, POD # 3. No leukocytosis and afebrile. Initially on vanco, cefepime and flagyl. This was narrowed to Vancomycin only yesterday. Preliminary cultures from right foot with staph aureus, suspect final culture will show MRSA due to MRSA bacteremia being present prior to admission. Per orthopedics the incision is looking good. 2. MRSA bacteremia. Present on admission. 11/25 blood cultures drawn on 06/14/19 as an outpatient with MRSA. Repeat blood cultures from 06/16 with no growth, day 5. Suspected source #1. TTE showing no vegetation, and no peripheral stigmata of endocarditis. 3. DM2. 4. Obesity. BMI 36.5 Plan: Continue vancomycin. Plan to be discharged on Vancomycin 2 gm IV every 12 hours , day 03/19. Will need weekly labs while on IV ABX: CBC, CMP, CRP, and vanco trough (plans have been arranged for weekly PICC line dressing changes and lab draws to be completed at the infusion center). Should followup in 2 week with ID outpatient. 30 minutes floor time >50% face to face in counseling the patient regarding antibiotic treatments and side effects. Will call the office for concerns or questions, fever, chills, or diarrhea.
--- NOTE | 2019-06-22 20:43 | DS ---
CC: Dr. Hosea Alarcon; Dr. Perea; Dr. Tavarez. * DISCHARGE SUMMARY: DATE OF ADMISSION: 06/17/19 DATE OF DISCHARGE: 06/22/19 PRIMARY CARE PROVIDER: Dr. Hosea Alarcon. ORTHOPEDIC SURGERY: Dr. Perea. INFECTIOUS DISEASES: Dr. Tavarez. CONDITION ON DISCHARGE: Stable. DISPOSITION AT DISCHARGE: Home. DISCHARGE DIAGNOSES: Charcot foot deformity of the right with osteomyelitis, status post ostectomy performed by Dr. Perea on 06/19/19 SECONDARY DIAGNOSES: 1. History of diabetes insulin dependent. 2. History of Charcot foot deformity on right. 3. History of great toe amputation in 2016 on the left and fifth toe amputation in 2016 on the left. 5. History of foot surgery and skin graft in 2017 on the left foot strep infection. 6. History of hypertension. 7. Hyperlipidemia. 8. History of right foot ulcers. 9. History of C. diff infection. MEDICATIONS AT DISCHARGE: Include: 1. Actos 15 mg q.a.m. 2. Lisinopril 20 mg daily. 3. Insulin Basaglar 130 units daily. 4. Insulin Admelog 36 units with meals. 5. Atenolol 50 mg daily. 6. Lipitor 40 mg daily. 7. Ranitidine 75 mg q.a.m. 8. Lactobacillus probiotic 1 tablet b.i.d. 9. Vancomycin 750 mg IV every 12 hours for a total of 4 weeks due to PICC. LABORATORY DATA AND STUDIES PERFORMED DURING THE HOSPITAL STAY: Included: On 06/21/19 white blood cell count 9.1, hemoglobin 11.5, hematocrit 34 and platelet count 256. On 06/21/19 sodium 135, potassium 4.4, chloride 104, carbon dioxide 22, BUN 14, creatinine 0.73. Vancomycin trough level was on 06/22/19 was 10.6. Last echocardiogram performed on 06/17/19 showed EF of 55% to 60% with no regional wall motion abnormalities with mild mitral regurgitation and trace tricuspid regurgitation. There are no masses or valvular lesions noted. Ultrasound of the right calf shows, "Superficial varicose vein that does not exhibit any flow, but no drainable fluid collection or abscess." CONSULTATION DURING THE HOSPITAL STAY: Dr. Perea from orthopedic surgery. Procedures performed on 06/19/19 ostectomy of the right midfoot. HOSPITALIZATION COURSE: Eliazar Yanes is a 54-year-old male with history of Charcot foot and multiple small toe amputations in the past who presented to the hospital after he was noted to have MRSA bacteremia as outpatient with fever. For further details of patient's hospitalization please see history of present illness and history and physical. Shortly, the patient was admitted to the hospital on 06/17/19 placed on vancomycin. He did have a chronic draining wound of the right foot that was operated on and Dr. Perea performed ostectomy on 06/19/19. His repeat blood cultures were negative. Infectious Diseases consulted Dr. Tavarez who saw patient in consultation and recommended treatment with vancomycin for a total 28 days. The patient's PICC was already placed prior to discharge. He was taught how to use and perform vancomycin infusion and he is to have 2000 mg every 12 hours infused for a total of 28 days. At discharge the patient was recommended: Follow up with Dr. Perea in approximately 1 to 2 weeks. Follow up with Dr. Tavarez in 1 to 2 weeks. In regards to dressing changes on the right foot please see specific printed orthopedic discharge recommendations. The patient is also recommended to follow up with his primary care provider in 4 to 7 days. For physical exam at discharge please see daily progress notes. Please note that this is a short summary of the patient's hospitalization. Please refer to further medical records for details. TIME SPENT: Approximately 45 minutes was spent on preparation of the patient's discharge. [id number]/[facility] #: [id number] ANNE
== END 2019-06-22 16:20 | disposition home or self-care (01) | DRG 504 ==
LOC: ED 22:14 → MED 06-17 00:02
PROVIDERS: ADMIT Internal Medicine; ATTEND Internal Medicine
PROC: 0QBL0ZZ Excision of Right Tarsal, Open Approach (ICD-10-PCS; principal; 2019-06-19 10:45)
PROC: 05HY33Z Insertion of Infusion Device into Upper Vein, Percutaneous Approach (ICD-10-PCS; 2019-06-21)
DX: M86.671 Other chronic osteomyelitis, right ankle and foot (principal); N17.9 Acute kidney failure, unspecified; R78.81 Bacteremia; I82.811 Embolism and thrombosis of superficial veins of right lower extremity; E11.610 Type 2 diabetes mellitus with diabetic neuropathic arthropathy; B95.62 Methicillin resistant Staphylococcus aureus infection as the cause of diseases classified elsewhere; I10 Essential (primary) hypertension; E78.5 Hyperlipidemia, unspecified; E11.621 Type 2 diabetes mellitus with foot ulcer; E66.9 Obesity, unspecified; Z89.429 Acquired absence of other toe(s), unspecified side; Z79.1 Long term (current) use of non-steroidal anti-inflammatories (NSAID); Z79.899 Other long term (current) drug therapy; Z83.3 Family history of diabetes mellitus; Z82.49 Family history of ischemic heart disease and other diseases of the circulatory system; Z79.4 Long term (current) use of insulin; Z68.36 Body mass index [BMI] 36.0-36.9, adult; Z86.19 Personal history of other infectious and parasitic diseases; Z82.3 Family history of stroke; Z87.891 Personal history of nicotine dependence; L97.511 Non-pressure chronic ulcer of other part of right foot limited to breakdown of skin
CPT/HCPCS: 36415; 80048; 80053; 80202; 81003; 83605; 85025; 85610; 86140; 87040; 87070; 87073; 87077; 87116; 87150; 87186; 87205; 87206; 88304; 88311; 93306; 99284; A9270-GY; C1751; G8978-GP-CI; G8979-GP-CI; G8980-GP-CI; J0692; J1644; J2704; J3010; J3370; J3490

== ENCOUNTER 2019-08-14 06:58 | Inpatient (IN) | payer MEDICARE, MEDICAID ==
[~2019-08-14 06:58] MED LIST changes: +Acetaminophen TAB* 325 MG PO ONE; +Buffered Lidocaine 1% SYRIN* 1 ML/SYRINGE INTRADERM ONE; +Famotidine IV* 10 MG/ML 2 ML (20 mg) IV ONE; -Flumazenil* 0.1 MG/ML 5 ML MDV ONE; -Heparin 2 UNITS/ML IVPREMIX* 3,000 UNIT/1,500 ML BAG IV ONE; -Iohexol 350 (CONTRAST) 200 ML MDV IV ONE; +Lactated Ringers 1000 ML Bag* 1,000 ML IV SCH; -Lidocaine 1% INJ* 10 MG/ML 30 ML SDV ONE; -Midazolam* 1 MG/ML 5 ML VIAL (5 MG) ONE; -Naloxone* 0.4 MG/ML 1 ML VIAL ONE; -fentaNYL* 50 MCG/ML 2 ML VIAL (100 MCG VIAL) ONE
[2019-08-14] MEDS ORDERED: Clindamycin 900 MG/D5W BAG(*) 900 MG/50 ML BAG IVPB ONE (07:34)
[2019-08-14] MEDS ORDERED: Acetaminophen TAB* 325 MG ONE ×2 (07:34→13:42)
[2019-08-14] MEDS ORDERED: Famotidine IV* 10 MG/ML 2 ML (20 mg) ONE (07:34)
[2019-08-14] MEDS ORDERED: fentaNYL* 50 MCG/ML 2 ML VIAL (100 MCG VIAL) ONE (08:20)
[2019-08-14] MEDS ORDERED: Midazolam* 1 MG/ML 2 ML VIAL (2 MG) ONE (08:20)
[2019-08-14] MEDS ORDERED: Lidocaine 2% PF * 5 ML VIAL ONE (09:28)
[2019-08-14] MEDS ORDERED: Cisatracurium* 2 MG/ML MDV 5 ML ONE (09:28)
[2019-08-14] MEDS ORDERED: Ketorolac INJ* 30 MG/ML 1 ML VIAL ONE (09:28)
[2019-08-14] MEDS ORDERED: Propofol* 10 MG/ML 20 ML BTL ONE (09:28)
[2019-08-14] MEDS ORDERED: Succinylcholine* 20 MG/ML 10 ML VIAL ONE (09:28)
[2019-08-14] MEDS ORDERED: Bupivacaine 0.5%* 50 ML MDV VIAL ONE (09:34)
[2019-08-14] MEDS ORDERED: diPHENhydraMINE IV* 50 MG/ML 1 ml VIAL (BENADRYL) IV PRN ×2 (09:50→11:52)
[2019-08-14] MEDS ORDERED: DiMENhydriNATE IV* 50 MG/ML VIAL IV PUSH PRN (09:50)
[2019-08-14] MEDS ORDERED: fentaNYL* 50 MCG/ML 2 ML VIAL (100 MCG VIAL) IV PRN (09:50)
[2019-08-14] MEDS ORDERED: Ondansetron INJ* 2 MG/ML VIAL IV PRN ×2 (09:50→11:52)
[2019-08-14] MEDS ORDERED: Naloxone* 0.4 MG/ML 1 ML VIAL IV PRN (09:50)
[2019-08-14] MEDS ORDERED: Phenylephrine 10 MG/ML VIAL* 1 ML VIAL ONE (10:18)
[2019-08-14] MEDS ORDERED: Ondansetron ODT TAB* 4 MG PO PRN (11:52)
[2019-08-14] MEDS ORDERED: Magnesium Hydroxide LIQ* 30 ML UDC PO PRN (11:52)
[2019-08-14] MEDS ORDERED: diPHENhydraMINE PO* 25 MG PO PRN (11:52)
[2019-08-14] MEDS ORDERED: Morphine INJ* 2 MG/ML 1 ML SYRINGE (TWO MG - NEW SYRINGE VERSION) IV PRN (11:57)
[2019-08-14] MEDS ORDERED: traZODone TAB* 50 MG TAB PO PRN (11:57)
[2019-08-14] MEDS ORDERED: Famotidine TAB* 20 MG PO PRN (12:00)
[2019-08-14] MEDS ORDERED: Acetaminophen IV 1GM/100ML * 0 ML ONE (13:04)
[2019-08-14] MEDS ORDERED: Acetaminophen TAB* 325 MG PO ONE (13:39)
[2019-08-14] MEDS: Lactated Ringers 1000 ML Bag* 1,000 ML IV SCH (15:05)
[2019-08-14] MEDS: ceFAZolin 1 GM ADVAN(*) 1 GM in NS 0.9% 50 ML* 50 ML IVPB SCH ×2 (15:31→23:29)
[2019-08-14] MEDS: oxyCODONE TAB* 5 MG TAB PO PRN ×2 (18:30→23:32)
[2019-08-14] MEDS ORDERED: Dextrose 50% VIAL 50 ml IV PUSH PRN (18:34)
--- NOTE | 2019-08-14 20:36 | CONS ---
CONSULTATION REPORT: DATE OF CONSULT: 08/14/19 PROVIDER: WILL Barker REQUESTING PHYSICIAN: Dr. Perea. REASON FOR CONSULT: Co-management of chronic medical conditions. HISTORY OF PRESENT ILLNESS/HOSPITAL COURSE: Eliazar Yanes is a 54-year-old white male with past medical history significant for right Charcot foot, GERD, diabetes mellitus type 2, hypertension, hyperlipidemia and a chronic right foot ulcer, who presents for surgery with Dr. Perea today for a right midfoot fusion and tibial bone graft. The patient had recent bone graft to the right foot, which was infected, in [place] and proceeded with surgery Dr. Perea today. The patient is evaluated on the floor after a surgery and he is feeling well, but is having chills. His temperature was checked and he is afebrile. He denies chest pain, difficulty breathing, abdominal pain, nausea, or vomiting. He started to have right foot pain recently and was already given medication by the nurse. PAST MEDICAL HISTORY: GERD, diabetes mellitus type 2, right Charcot foot, hypertension, hyperlipidemia and right foot ulcer. PAST SURGICAL HISTORY: Left toe amputation, skin graft to right foot, debridement in November 2018 of the skin graft to the right foot. HOME MEDICATIONS: 1. Zantac 75 mg p.o. q.a.m. p.r.n. dyspepsia. 2. Pioglitazone 15 mg p.o. daily. 3. Lisinopril 20 mg p.o. daily. 4. Insulin glargine 130 units subcu q.a.m. 5. Insulin lispro 36 units subcu t.i.d. with meals. 6. Lipitor 40 mg p.o. daily. 7. Atenolol 50 mg p.o. daily. 8. Trulicity 1.5 mg subcu weekly. ALLERGIES: The patient has no known drug allergies. He has a reaction of facial swelling to nuts and reaction of kidney damage to vancomycin; however, this is an adverse event and not an allergy. FAMILY HISTORY: Hypertension and diabetes in both parents. SOCIAL HISTORY: The patient denies tobacco use, alcohol use or drug use. 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 The patient typically lives in [place]; however, he has been staying in [place] recently. OBJECTIVE: Vital Signs: Temperature 97.5, pulse 89, respiratory rate 18, oxygen 100% on room air, blood pressure 131/82. General: Obese middle-aged white male, lying in hospital bed, appearing comfortable, in no acute distress. Occasional rigors. Eyes: PERRL. Sclerae anicteric. ENT: Mucous membranes are moist. Neck: Supple without JVD. Lungs: Clear to auscultation throughout. Chest: Regular rate and rhythm without murmurs, rubs, or gallops. Abdomen: Abdomen is soft, nontender, nondistended. No hepatosplenomegaly appreciated. Extremities: Right foot up to right knee in Oscar wraps. No edema appreciated. No clubbing or cyanosis. Neuro: The patient is alert and oriented x3. Able to move all extremities. ASSESSMENT AND PLAN: Eliazar Yanes is a 54-year-old white male with past medical history significant for hypertension, hyperlipidemia, Charcot foot and diabetes, who presents for right midfoot fusion and tibial bone graft with Dr. Perea. Hospital Medicine has been consulted for co-management of chronic medical conditions. 1. Diabetes. I will reduce the patient's insulin glargine to 60 units every morning and we may need to increase this. Carbohydrate consistent diet is already ordered. I have ordered a lispro sliding scale as well as fingersticks a.c. 2. Hypertension. The patient's home lisinopril and atenolol will be continued. I will adjust these medications to have holding parameters for systolic blood pressure less than 110 to avoid orthostatic hypotension in the postoperative setting. He is not hypertensive at this time and we will continue to monitor. 3. Hyperlipidemia. Continue the patient's home Lipitor. 4. Gastroesophageal reflux disease. Continue the patient's home Zantac. 5. Status post midfoot fusion with Dr. Perea. Management per Orthopedic team. Pain management and bowel regimen per Orthopedic team. 6. Disposition. Per Orthopedic team. Thank you for allowing us to participate in the care of this patient. We will follow blood glucose and blood pressure and adjust the medications as needed, otherwise please call us as needed. WILL BARKER [id number]/[facility] #: [id number] M[facility]IC[facility] HOSPITALLoida
[2019-08-14] MEDS: Insulin LISPRO* 1 UNITS UNIT SUBCUT SCH (21:39)
[2019-08-14] MEDS: Acetaminophen TAB* 325 MG PO SCH (21:39)
[2019-08-14] MEDS: Cyclobenzaprine TAB* 10 MG PO PRN (21:40)
--- NOTE | 2019-08-14 23:01 | OP ---
DATE OF SURGERY: 08/14/19 - ROOM #349 DATE OF : 67 ATTENDING SURGEON: Hosea Perea MD. ASSISTED BY: Drea Black PA-C. PRE-OP DIAGNOSES: Charcot midfoot with plantar ulceration in the past and dorsal dislocation of the midtarsal joints. POST-OP DIAGNOSES: Charcot midfoot with plantar ulceration in the past and dorsal dislocation of the midtarsal joints. OPERATIVE PROCEDURE: Realignment midfoot with refusion of the talonavicular joint and tibial bone graft. DESCRIPTION OF PROCEDURE: The patient was taken to the operating room where a longitudinal incision was made over the dorsomedial hindfoot. We extended this incision almost to the first metatarsal head and then back to the anterior medial aspect of the ankle joint. The anterior tibialis tendon was taken down in a Z- shaped fashion to facilitate visualization and using a Bueno elevator we were able to elevate the talar head off of the navicular, which was basically solidly fixed to the underside of the first cuneiform. I carried the dissection laterally across the remaining portion of the Chopart's joint and then with a half-inch curved osteotome I removed some of the length from the lateral column. We harvested tibial bone graft proximally through a 1 cm corticotomy at Gerdy's tubercle. Half a medicine cup of the cancellous bone was harvested and then replaced with cancellous chips. The proximal wound was closed with 2-0 Monocryl sutures and oly for the skin. The bone graft was saved for the midfoot. Using a lamina supervisor testing, we were able to open the talonavicular joint more thoroughly and a 5 mm power kaye was used to prepare the joint for arthrodesis. We packed the bone graft and then placed a longitudinal guide pin from the undersurface of the metatarsal head #1, down the shaft of the metatarsal across the talonavicular site, and then into the body of the talus. This was then exchanged for 120 mm long, 6.7 mm cannulated screw. Dorsally we placed a couple of 25 mm oly of the Arthrex kit giving additional fixation. We irrigated this wound thoroughly, closing with 2-0 Vicryl sutures after repairing the anterior tibialis, which was taken down in a Z- cut fashion. We repaired this with 0 Vicryl sutures. It was felt that the foot did not need to have a tendoachilles lengthening. The foot came comfortably up to 5 degrees of dorsiflexion with the knee straight. 2-0 Monocryl were used for closure of the wound as well as combination of oly and 2-0 Prolene. We also excised some of the thick callous on the undersurface of the midfoot in elliptical fashion. This was irrigated and closed then with interrupted Prolene sutures. Compression dressing and plaster splint were applied. [id number]/[facility] #: [id number] ANNE
[2019-08-15] MEDS: oxyCODONE TAB* 5 MG TAB PO PRN ×4 (04:53→21:48)
[2019-08-15] MEDS: Acetaminophen TAB* 325 MG PO SCH ×3 (04:53→21:47)
[2019-08-15] MEDS: Lactated Ringers 1000 ML Bag* 1,000 ML IV SCH (04:57)
[2019-08-15 05:45] LABS: Hematocrit 29 % (42-52); Hemoglobin 10.2 g/dL (14.0-18.0); Mean Platelet Volume 6.5 fL (7.4-10.4); Platelet Count 147 10^3/uL (150-450)
[2019-08-15 06:08] LABS: BUN/Creatinine Ratio 17.9 (8-20); Calcium 8.8 mg/dL (8.6-10.3); EGFR African American 88.4 (>60); EGFR Non-African American 73.1 (>60); Potassium 4.2 mmol/L (3.5-5.0)
[2019-08-15] MEDS: ceFAZolin 1 GM ADVAN(*) 1 GM in NS 0.9% 50 ML* 50 ML IVPB SCH (07:39)
[2019-08-15] MEDS: Magnesium Hydroxide LIQ* 30 ML UDC PO SCH ×2 (07:46→21:53)
[2019-08-15] MEDS: Docusate CAP* 100 MG PO SCH ×2 (07:46→21:53)
[2019-08-15] MEDS: Insulin LISPRO* 1 UNITS UNIT SUBCUT SCH ×4 (07:51→18:14)
[2019-08-15] MEDS ORDERED: Insulin GLARGINE(*) 1 UNITS UNIT SUBCUT SCH (08:00)
[2019-08-15] MEDS: Atorvastatin* 40 MG TAB PO SCH (08:04)
[2019-08-15] MEDS: Cyclobenzaprine TAB* 10 MG PO PRN (08:04)
[2019-08-15] MEDS: Lisinopril TAB* 10 MG PO SCH (08:04)
[2019-08-15] MEDS: Atenolol TAB* 50 MG PO SCH (08:05)
[2019-08-15] MEDS: Insulin GLARGINE(*) 1 UNITS UNIT SUBCUT SCH (08:06)
[2019-08-15] MEDS ORDERED: Atenolol TAB* 50 MG PO SCH (09:00)
[2019-08-15] MEDS ORDERED: Lisinopril TAB* 10 MG PO SCH (09:00)
[2019-08-15] MEDS: Enoxaparin(*) 40 MG/0.4 ML SYR SUBCUT SCH (12:24)
--- NOTE | 2019-08-15 13:51 | PN ---
Progress Note - Progress Note Date of Service: 08/15/19 SOAP: Subjective: []Pt seen at bedside. He reports tolerable pain of RLE, he is feeling overall fatigue, mild headache and sore throat. Denies CP, SOB, dizziness, nausea. Had refused PT this morning, upon discussion patient only required clarification on WB, he intends to work with PT. Objective: []Gen: appears well, NAD RLE: Splint CDI. no erythema proximally. Able to wiggle toes. Decreased sensation distally which is baseline. Cap refill less than two seconds distally. Assessment: []Charcot midfoot with plantar ulceration in the past and dorsal dislocation of the midtarsal joints. POD 1 sp Realignment midfoot with refusion of the talonavicular joint and tibial bone graft. Plan: []NWB RLE Needs to work with PT and if able to mobilize with crutches/ walker can DC home 3 doses post op abx appropriate no need for continued fci abx, discussed with ID keep splint CDI until follow up visit Vital Signs Temp 98.8 F 08/15/19 11:17 Pulse 97 08/15/19 11:17 Resp 16 08/15/19 12:40 BP 100/44 08/15/19 11:17 Pulse Ox 95 08/15/19 11:17 Intake & Output 08/14/19 08/15/19 08/15/19 18:59 06:59 18:59 Intake Total 2109 2018 625 Output Total 1100 700 Balance 2109 918 -75 Weight 280 lb Intake: IV Fluids 1999 980 305 ABX - CEFAZOLIN 55 LR 2000 980 250 IVPB 110 58 ABX - CEFAZOLIN 55 58 Oral 980 320 Output: Urine 1100 700 Laboratory Last Values Hgb 10.2 g/dL (14.0-18.0) L 08/15/19 05:26 Hct 29 % (42-52) L 08/15/19 05:26 Plt Count 147 10^3/uL (150-450) L 08/15/19 05:26 MPV 6.5 fL (7.4-10.4) L 08/15/19 05:26 Sodium 136 mmol/L (135-145) 08/15/19 05:26 Potassium 4.2 mmol/L (3.5-5.0) 08/15/19 05:26 Chloride 107 mmol/L (101-111) 08/15/19 05:26 Carbon Dioxide 21 mmol/L (22-32) L 08/15/19 05:26 Anion Gap 8 mmol/L (2-11) 08/15/19 05:26 BUN 19 mg/dL (6-24) 08/15/19 05:26 Creatinine 1.06 mg/dL (0.67-1.17) 08/15/19 05:26 Est GFR ( Amer) 88.4 (>60) 08/15/19 05:26 Est GFR (Non-Af Amer) 73.1 (>60) 08/15/19 05:26 BUN/Creatinine Ratio 17.9 (8-20) 08/15/19 05:26 Glucose 152 mg/dL (70-100) H 08/15/19 05:26 POC Glucose (mg/dL) 241 mg/dL (70-100) H 08/15/19 11:44 Calcium 8.8 mg/dL (8.6-10.3) 08/15/19 05:26
[2019-08-15] MEDS ORDERED: Dextrose 50% VIAL 50 ml IV PUSH PRN (14:37)
--- NOTE | 2019-08-15 14:45 | PN ---
Hospitalist Progress Note Date of Service: 08/15/19 Patient refusing insulin, called to bedside to evangelista. Patient wants 15 U of insulin at every meal. Discussed with patient that this is a safety issue an may cause hypoglycemia. Discussed that patient is likely eating fewer carbs at the hospital than he does at home. Patient tells me he does not carb count at home. Patient states he wants 15 U at every meal or else he will continue to refuse. Advised against this. Ordering lispro 5 U each meal with holding parameters for BG<200, and lispro SS is still in place for additional coverage if needed.
[2019-08-16] MEDS: oxyCODONE TAB* 5 MG TAB PO PRN ×4 (04:32→21:50)
[2019-08-16] MEDS: Acetaminophen TAB* 325 MG PO SCH ×3 (04:33→21:49)
[2019-08-16] MEDS: Insulin LISPRO* 1 UNITS UNIT SUBCUT SCH ×6 (09:29→18:24)
[2019-08-16] MEDS: Lisinopril TAB* 10 MG PO SCH (09:35)
[2019-08-16] MEDS: Vitamin THERAPEUTIC TAB PO SCH (09:35)
[2019-08-16] MEDS: Atorvastatin* 40 MG TAB PO SCH (09:35)
[2019-08-16] MEDS: Atenolol TAB* 50 MG PO SCH (09:36)
[2019-08-16] MEDS: Insulin GLARGINE(*) 1 UNITS UNIT SUBCUT SCH (09:37)
[2019-08-16] MEDS: Magnesium Hydroxide LIQ* 30 ML UDC PO SCH ×2 (09:41→21:51)
[2019-08-16] MEDS: Docusate CAP* 100 MG PO SCH ×2 (09:41→21:51)
[2019-08-16 10:17] LABS: Mean Platelet Volume 6.8 fL (7.4-10.4); Platelet Count 182 10^3/uL (150-450)
[2019-08-16] MEDS: Enoxaparin(*) 40 MG/0.4 ML SYR SUBCUT SCH (11:38)
[2019-08-16] MEDS ORDERED: Bisacodyl SUPP* 10 MG SUPP PR PRN (11:52)
--- NOTE | 2019-08-16 12:49 | PN ---
Progress Note - Progress Note Date of Service: 08/16/19 SOAP: Subjective: []Pt seen at bedside. He participate with PT today and met goals but does not feels safe to go home as he has no help and it is far too painful to use his knee scooter. Incision just inferior to knee is most painful area. He feels he will need a short stay at rehab. Denies CP, SOB, dizziness, nausea. Overall feels fatigued. Objective: []Gen: appears well, NAD RLE: Splint CDI. no erythema proximally. Able to wiggle toes. Decreased sensation distally which is baseline. Cap refill less than two seconds distally. Assessment: []Charcot midfoot with plantar ulceration in the past and dorsal dislocation of the midtarsal joints. POD 2 sp Realignment midfoot with refusion of the talonavicular joint and tibial bone graft. Plan: []NWB RLE keep splint CDI until follow up visit CM made aware, will start rehab placement Vital Signs Temp 99.4 F 08/16/19 12:05 Pulse 94 08/16/19 12:05 Resp 18 08/16/19 12:05 BP 120/68 08/16/19 12:05 Pulse Ox 94 08/16/19 12:05 Intake & Output 08/15/19 08/16/19 08/16/19 18:59 06:59 18:59 Intake Total 835 1160 450 Output Total 2250 775 375 Balance -1415 385 75 Intake: IV Fluids 305 ABX - CEFAZOLIN 55 LR 250 Oral 530 1160 450 Output: Urine 2250 775 375 Laboratory Last Values Hgb 10.2 g/dL (14.0-18.0) L 08/15/19 05:26 Hct 29 % (42-52) L 08/15/19 05:26 Plt Count 182 10^3/uL (150-450) 08/16/19 09:43 MPV 6.8 fL (7.4-10.4) L 08/16/19 09:43 Sodium 136 mmol/L (135-145) 08/15/19 05:26 Potassium 4.2 mmol/L (3.5-5.0) 08/15/19 05:26 Chloride 107 mmol/L (101-111) 08/15/19 05:26 Carbon Dioxide 21 mmol/L (22-32) L 08/15/19 05:26 Anion Gap 8 mmol/L (2-11) 08/15/19 05:26 BUN 19 mg/dL (6-24) 08/15/19 05:26 Creatinine 1.06 mg/dL (0.67-1.17) 08/15/19 05:26 Est GFR ( Amer) 88.4 (>60) 08/15/19 05:26 Est GFR (Non-Af Amer) 73.1 (>60) 08/15/19 05:26 BUN/Creatinine Ratio 17.9 (8-20) 08/15/19 05:26 Glucose 152 mg/dL (70-100) H 08/15/19 05:26 POC Glucose (mg/dL) 265 mg/dL (70-100) H 08/16/19 11:37 Calcium 8.8 mg/dL (8.6-10.3) 08/15/19 05:26
[2019-08-16] MEDS: Cyclobenzaprine TAB* 10 MG PO PRN (14:19)
[2019-08-17] MEDS: Acetaminophen TAB* 325 MG PO SCH (04:49)
[2019-08-17] MEDS: oxyCODONE TAB* 5 MG TAB PO PRN ×2 (04:56→09:13)
[2019-08-17 06:40] LABS: Mean Platelet Volume 6.7 fL (7.4-10.4); Platelet Count 187 10^3/uL (150-450)
[2019-08-17 08:58] VITALS: BP 124/65
[2019-08-17] MEDS: Insulin LISPRO* 1 UNITS UNIT SUBCUT SCH ×2 (09:03→09:13)
[2019-08-17] MEDS: Docusate CAP* 100 MG PO SCH (09:04)
[2019-08-17] MEDS: Magnesium Hydroxide LIQ* 30 ML UDC PO SCH (09:04)
[2019-08-17] MEDS: Atenolol TAB* 50 MG PO SCH (09:12)
[2019-08-17] MEDS: Vitamin THERAPEUTIC TAB PO SCH (09:12)
[2019-08-17] MEDS: Lisinopril TAB* 10 MG PO SCH (09:13)
[2019-08-17] MEDS: Atorvastatin* 40 MG TAB PO SCH (09:13)
--- NOTE | 2019-08-17 09:17 | DS ---
Orthopedic Discharge Summary - Discharge Summary Date of Admission:08/15/19 Date of Discharge: 08/17/19 Date of Surgery: 08/15/19 Attending Orthopedic Provider: Dr Rinaldi Pre-operative Diagnosis: Charcot midfoot with plantar ulceration in the past and dorsal dislocation of the midtarsal joints. Operative Procedure: Realignment midfoot with refusion of the talonavicular joint and tibial bone graft. Disposition of Patient: [stable] Condition of Patient: [home (friend's home)] History: Miles IRVIN is a 54 year old M with Charcot midfoot with plantar ulceration in the past and dorsal dislocation of the midtarsal joints. Patient has failed conservative management and has elected to undergo a Realignment midfoot with refusion of the talonavicular joint and tibial bone graft. Hospital Course: Miles was admitted to [facility] on 08/15/19. Patient underwent a [Realignment midfoot with refusion of the talonavicular joint and tibial bone graft.] without complication followed by a brief recovery in PACU and transfer to the Short Stay Surgical Unit in stable condition. Our hospitalist service, physical therapy and occupational therapy also participated in this patients care. Post-op day 1: patient was alert and in no acute distress. Dressing was clean, dry and intact. Operative extremity MTP F/E intact without pain, sensation intact to light touch distally though decreased which is baseline, cap refill less than two seconds distally. POD 2 exam unchanged. POD 3 pain is decreased, overall feels well, denies CP, SOB, dizziness, nausea. Operative extemity F/E MTPs intact, NVI distally. PT goals met and pt comfortable with DC to friends home. Home Medications Medication Instructions Recorded Confirmed Type Atenolol TAB* [Tenormin TAB* 50 MG] 50 mg PO QAM 06/07/19 08/14/19 History Atorvastatin Calcium [Lipitor] 40 mg PO QAM 06/07/19 08/14/19 History Insulin Glargine,Hum.rec.anlog 130 unit SUBCUT QAM 06/07/19 08/14/19 History [Basaglar Kwikpen U-100] Insulin Lispro [Admelog] 36 unit SUBCUT TID WITH MEALS 06/07/19 08/14/19 History Lisinopril TAB* [Prinivil TAB 10 20 mg PO QAM 06/07/19 08/14/19 History MG*] Pioglitazone TAB* [Actos TAB*] 15 mg PO QAM 06/07/19 08/14/19 History Ranitidine HCl (Nf) [Zantac] 75 mg PO QAM PRN 06/07/19 08/14/19 History Dulaglutide [Trulicity] 1.5 mg SQ WEEKLY 08/07/19 08/14/19 History Acetaminophen TAB* [Tylenol TAB*] 975 mg PO Q8H tab 08/17/19 Rx Docusate CAP* [Colace Cap*] 100 mg PO BID PRN #90 cap 08/17/19 Rx Enoxaparin(*) [Lovenox(*)] 40 mg SUBCUT Q24H #20 syringe 08/17/19 Rx oxyCODONE TAB* [Roxycodone TAB 5 5 mg PO Q4H PRN #30 tab MDD 8 08/17/19 Rx mg*] Discharge Instructions following Orthopedic Surgery: Activity: * Non -Weight Bearing operative extremity * Use assistive device ( walker, wheelchair or knee scooter) - may use knee scooter if tolerated * Wound care: * Keep splint clean, dry and intact until follow up visit Call Orthopedic office for: * Increased drainage * Redness * Increased pain * Fever Go to ER with shortness of breath or chest pain. Diet: * Regular diet * Increase fluids and fiber to prevent constipation. * Continue to use stool softeners, call office if no bowel motion within 48 hours. Medications See Home Medication List in your packet for medications that you should take after discharge. DVT Prophylaxis: Lovenox Dosing: [40] mg once a day during period of immobility. Increases bleeding tendency Pain Control: oxycodone 5 mg tabs Dosinmg 1-2 tabs by mouth every 4-6 hours as needed for pain. Maximum of 8 tabs per day. Hold for sedation, wean off as soon as pain allows Antibiotics are required prior to any dental work. FOLLOW UP: Follow up with [Eliazar] Within 10-14 days, call for appointment Please call our office with any questions or concerns ([phone]) [facility]
[2019-08-17] MEDS: Insulin GLARGINE(*) 1 UNITS UNIT SUBCUT SCH (09:32)
[2019-08-17] MEDS: Enoxaparin(*) 40 MG/0.4 ML SYR SUBCUT SCH (10:20)
== END 2019-08-17 11:10 | disposition home or self-care (01) | DRG 983 ==
LOC: OR 06:58 → EDSTATUS 08:45 → SSU 14:00 → OBSVTOIN 08-15 14:00
PROVIDERS: ADMIT Orthopaedic Surgery; ATTEND Orthopaedic Surgery
PROC: 0QBG0ZZ Excision of Right Tibia, Open Approach (ICD-10-PCS; 2019-08-14)
PROC: 0SGH07Z Fusion of Right Tarsal Joint with Autologous Tissue Substitute, Open Approach (ICD-10-PCS; principal; 2019-08-14 08:45)
DX: E11.610 Type 2 diabetes mellitus with diabetic neuropathic arthropathy (principal); M24.374 Pathological dislocation of right foot, not elsewhere classified; I10 Essential (primary) hypertension; E11.51 Type 2 diabetes mellitus with diabetic peripheral angiopathy without gangrene; I70.209 Unspecified atherosclerosis of native arteries of extremities, unspecified extremity; E78.00 Pure hypercholesterolemia, unspecified; E11.621 Type 2 diabetes mellitus with foot ulcer; L97.519 Non-pressure chronic ulcer of other part of right foot with unspecified severity; K21.9 Gastro-esophageal reflux disease without esophagitis; E78.5 Hyperlipidemia, unspecified; Z87.891 Personal history of nicotine dependence; Z88.1 Allergy status to other antibiotic agents; Z89.419 Acquired absence of unspecified great toe; Z83.3 Family history of diabetes mellitus; Z82.49 Family history of ischemic heart disease and other diseases of the circulatory system; Z82.3 Family history of stroke; Z72.89 Other problems related to lifestyle; Z89.422 Acquired absence of other left toe(s); Z79.4 Long term (current) use of insulin
CPT/HCPCS: 36415; 76000; 80048; 85014; 85018; 85049; 96365; 96366; 96372; A9270-GY; C1713; C1776; G0378; G8978-GP-CI; G8979-GP-CI; G8980-GP-CI; J0330; J0690; J1650; J1885; J2250; J2704; J3010; J3490

== ENCOUNTER 2019-10-04 11:49 | Day surgery (SDC) | payer MEDICARE, MEDICAID ==
[2019-10-04] MEDS ORDERED: Insulin LISPRO* 1 UNITS UNIT SUBCUT ONE (13:08)
[2019-10-04] MEDS ORDERED: Midazolam* 1 MG/ML 2 ML VIAL (2 MG) ONE ×2 (14:50→15:13)
[2019-10-04] MEDS ORDERED: Lidocaine 2% w/ EPI 1:200,000* 20 ML SDV VIAL ONE (14:52)
[2019-10-04] MEDS ORDERED: Proparacaine 0.5% OPHTH.SOL* 15 ML BTL ONE (14:52)
[2019-10-04] MEDS ORDERED: Phenylephrine OPHTH SOL 2.5%* 2 ML ONE (14:52)
[2019-10-04] MEDS ORDERED: Neomycin/Polymy/Dex OPTH.SUSP* MAXITROL 0.1% 5 ML ONE (14:52)
[2019-10-04] MEDS ORDERED: Cyclopentolate 1% OPTH.SOL* 2 ML BTL ONE (14:52)
[2019-10-04] MEDS ORDERED: acetaZOLAMIDE TAB* 250 MG ONE (14:52)
[2019-10-04] MEDS ORDERED: Lidocaine 1% MPF ** 5 ML VIAL ONE (14:52)
[2019-10-04] MEDS ORDERED: Ketorolac 0.5% OPHTH (NF) 0.5 % 5 ML BTL ONE (14:52)
[2019-10-04] MEDS ORDERED: Povidone Iodine 5% OPTH* 30 ML BTL ONE (14:52)
[2019-10-04 15:41] VITALS: BP 134/79
--- NOTE | 2019-10-04 17:12 | OP ---
DATE OF OPERATION: 10/04/2019 - [facility] DATE OF : 1965. SURGEON: Jose Alfredo Lam M.D. PREOPERATIVE DIAGNOSIS: Cataract left eye. POSTOPERATIVE DIAGNOSIS: Cataract left eye. OPERATIVE PROCEDURE: Extracapsular cataract extraction with intraocular lens implant left eye. DESCRIPTION OF PROCEDURE: The patient was brought to the operating room after being given 1/2% Alcaine with epinephrine drops in the preoperative area. The eye was prepped and draped in the usual sterile fashion. Sterile drape and eyelid speculum were placed. Again, topical 1/2% Alcaine with epinephrine was given. A paracentesis incision was made at the 3 o'clock position with the No.75 blade. Clear cornea incision 2.2 x 2.2-mm was created at the 6 o'clock position starting at the anterior limbus using the 2.2-mm keratome. The anterior chamber was irrigated with 0.4 mL of 1% non-preservative intracameral lidocaine and filled with DisCoVisc. A capsulorrhexis was completed using the cystotome and the Utrata forceps. Hydrodissection was performed with balanced salt solution. The lens nucleus was removed with the Phacoemulsification handpiece without incident. Cortex was removed with the irrigation-aspiration handpiece. The capsular bag was re-inflated using DisCoVisc and an [id number] implant was inserted with the shooter. The irrigation-aspiration handpiece was used to remove all residual DisCoVisc. The eye was refilled with balanced salt solution and the wound checked and found to be watertight. Topical Maxitrol drops were given. [id number]/[facility] #: [id number] [facility]
== END 2019-10-04 15:56 | disposition home or self-care (01) ==
LOC: OREAST 11:49
PROVIDERS: ATTEND Specialist
DX: H25.813 Combined forms of age-related cataract, bilateral (principal); E11.9 Type 2 diabetes mellitus without complications; I10 Essential (primary) hypertension; E78.00 Pure hypercholesterolemia, unspecified; Z79.4 Long term (current) use of insulin
CPT/HCPCS: A9270-GY; J1815; J2250; V2632

== ENCOUNTER 2019-10-11 11:55 | Day surgery (SDC) | payer MEDICARE, MEDICAID ==
[~2019-10-11 11:55] MED LIST changes: -Acetaminophen TAB* 325 MG PO ONE; +Cyclopentolate 1% OPTH.SOL* 2 ML BTL ONE; +Dexamethasone IV* 4 MG/ML 1 ML (4 MG) ONE; -Famotidine IV* 10 MG/ML 2 ML (20 mg) IV ONE; +Famotidine IV* 10 MG/ML 2 ML (20 mg) ONE; +Ketorolac 0.5% OPHTH (NF) 0.5 % 5 ML BTL ONE; -Lactated Ringers 1000 ML Bag* 1,000 ML IV SCH; +Lidocaine 1% MPF ** 5 ML VIAL ONE; +Lidocaine 2% w/ EPI 1:200,000* 20 ML SDV VIAL ONE; +Neomycin/Polymy/Dex OPTH.SUSP* MAXITROL 0.1% 5 ML ONE; +Phenylephrine OPHTH SOL 2.5%* 2 ML ONE; +Povidone Iodine 5% OPTH* 30 ML BTL ONE; +Proparacaine 0.5% OPHTH.SOL* 15 ML BTL ONE; +acetaZOLAMIDE TAB* 250 MG ONE; +ceFAZolin 2 GM in NS PREMIX(*) 2 GM/100 ML BAG IVPB ONE
[2019-10-11] MEDS ORDERED: fentaNYL* 50 MCG/ML 2 ML VIAL (100 MCG VIAL) ONE (13:29)
[2019-10-11] MEDS ORDERED: Midazolam* 1 MG/ML 2 ML VIAL (2 MG) ONE (13:30)
[2019-10-11 14:43] VITALS: BP 148/88
--- NOTE | 2019-10-11 19:57 | OP ---
DATE OF OPERATION: 10/11/19 [facility] DATE OF : [birth year] SURGEON: Jose Alfredo Lam M.D. PREOPERATIVE DIAGNOSIS: Cataract, right eye. POSTOPERATIVE DIAGNOSIS: Cataract, right eye. OPERATIVE PROCEDURE: Extracapsular cataract extraction with intraocular lens implant right eye. DESCRIPTION OF PROCEDURE: The patient was brought to the operating room after being given 1/2% Alcaine with epinephrine drops in the preoperative area. The eye was prepped and draped in the usual sterile fashion. Sterile drape and eyelid speculum were placed. Again, topical 1/2% Alcaine with epinephrine was given. A paracentesis incision was made at the 9 o'clock position with the No.75 blade. Clear cornea incision 2.2 x 2.2-mm was created at the 12 o'clock position starting at the anterior limbus using the 2.2-mm keratome. The anterior chamber was irrigated with 0.4 mL of 1% non-preservative intracameral lidocaine and filled with DisCoVisc. A capsulorrhexis was completed using the cystotome and the Utrata forceps. Hydrodissection was performed with balanced salt solution. The lens nucleus was removed with the Phacoemulsification handpiece without incident. Cortex was removed with the irrigation-aspiration handpiece. The capsular bag was re-inflated using DisCoVisc and an [id number] implant was inserted with the shooter. The irrigation-aspiration handpiece was used to remove all residual DisCoVisc. The eye was refilled with balanced salt solution and the wound checked and found to be watertight. Topical Maxitrol drops were given. [id number]/[facility] #: [id number] [facility]PITALLoida
== END 2019-10-11 14:32 | disposition home or self-care (01) ==
LOC: OREAST 11:55
PROVIDERS: ATTEND Specialist
DX: H25.811 Combined forms of age-related cataract, right eye (principal); E11.9 Type 2 diabetes mellitus without complications; I10 Essential (primary) hypertension; E78.00 Pure hypercholesterolemia, unspecified; Z96.1 Presence of intraocular lens; Z89.422 Acquired absence of other left toe(s); Z79.4 Long term (current) use of insulin; Z87.891 Personal history of nicotine dependence
CPT/HCPCS: A9270-GY; J0690; J1100; J2250; J3010; V2632

== ENCOUNTER 2019-11-23 09:50 | Inpatient (IN) | payer MEDICARE, MEDICAID ==
[2019-11-23] MEDS ORDERED: Morphine INJ* 2 MG/ML 1 ML SYRINGE (TWO MG - NEW SYRINGE VERSION) IV PRN (10:02)
[2019-11-23] MEDS ORDERED: Ondansetron INJ* 2 MG/ML VIAL IV PRN (10:02)
[2019-11-23] MEDS ORDERED: diPHENhydraMINE PO* 25 MG PO PRN (10:02)
[2019-11-23] MEDS ORDERED: Ondansetron ODT TAB* 4 MG PO PRN (10:02)
[2019-11-23] MEDS ORDERED: traMADol TAB* 50 MG PO PRN (10:02)
[2019-11-23] MEDS ORDERED: Magnesium Hydroxide LIQ* 30 ML UDC PO PRN (10:02)
[2019-11-23] MEDS ORDERED: diPHENhydraMINE IV* 50 MG/ML 1 ml VIAL (BENADRYL) IV PRN (10:02)
[2019-11-23 12:45] LABS: ABS Eosinophils 0.1 10^3/ul (0-0.6); ABS Lymphocytes 0.7 10^3/ul (1.0-4.8); ABS Monocytes 0.6 10^3/ul (0-0.8); ABS Neutrophils 5.3 10^3/ul (1.5-7.7); Eosinophil % 1.3 %; Hematocrit 38 % (42-52); Mean Corpuscular HGB Conc 34 g/dL (31-36); Mean Corpuscular Hemoglobin 30 pg (27-31); Mean Corpuscular Volume 89 fL (80-94); Mean Platelet Volume 6.9 fL (7.4-10.4); Platelet Count 224 10^3/uL (150-450); Red Blood Count 4.29 10^6 /uL (4.18-5.48); Red Cell Distribution Width 14 % (10-15); White Blood Count 6.7 10^3/uL (3.5-10.8)
[2019-11-23 13:00] LABS: BUN/Creatinine Ratio 27.5 (8-20); Calcium 9.7 mg/dL (8.6-10.3); EGFR African American 69.3 (>60); EGFR Non-African American 57.2 (>60); Potassium 4.3 mmol/L (3.5-5.0)
[2019-11-23 13:03] LABS: INR 1.15 (0.82-1.09)
[2019-11-23] MEDS: Heparin VIAL(*) 5000 UNITS/ML VIAL (FIVE THOUSAND) SUBCUT SCH ×2 (13:51→22:06)
[2019-11-23] MEDS: Acetaminophen TAB* 325 MG PO SCH ×2 (13:52→22:06)
--- NOTE | 2019-11-23 15:27 | HP ---
AMENDED REPORT NOW INCLUDES DESIGNATED COSIGNER AND DATE OF ADMISSION ADMISSION HISTORY AND PHYSICAL: DATE OF ADMISSION: 11/23/19 ATTENDING ORTHOPEDIC PROVIDER: Dr. Hosea Perea.* (DICTATED BY WILL VILLARREAL) CHIEF COMPLAINT: Right foot infection. HISTORY OF PRESENT ILLNESS: The patient is a 54-year-old male. He presented to the orthopedic office to see Dr. Grande for right shoulder follow up and incidentally mentioned problems with wound healing as he passed Dr Perea in the sims. With this, he was seen at Dr. Perea's orthopedic office today, , for followup of realignment of the midfoot with refusion of the talonavicular joint and tibial bone graft DONE 08/14/19. He has had known incisional breakdown on the dorsum of his foot since the time of this surgery on 08/14/19. The patient states that the mid portion of the dorsal incision never fully healed, and there is an open ulceration without any erythema and without any discharge for which he had been seeing Dr. [facility] and he was being treated with iodoform packing. He states that up until 3 days ago, there was very little change to the wound since surgery. Three days ago, the wound started to drain a purulent material and tissue became red and beefy with some surrounding erythema. The patient started Bactrim 2 days ago without any improvement. Yesterday, he started to develop fever and chills. Today, he went to see Dr. Perea, who sent him in to [facility] for direct admission. Upon admission, the patient states that he is having no foot pain in the right foot, though he does have severely decreased sensation at baseline. He confirms having fever and chills. He understands that he will go to the operating room with Dr. Perea tomorrow. Denies any past complications with anesthesia, history of heart attack, stroke, or blood clot. PAST MEDICAL HISTORY AND PAST SURGICAL HISTORY: Type 2 diabetes, insulin dependent; Charcot foot; great toe amputation in 2016; small toe amputation in 2016; hypertension; dyslipidemia; right chronic foot ulcer DRUG ALLERGIES: VANCOMYCIN associated acute renal injury, advised against use from Infectious Disease. FAMILY HISTORY: Diabetes, hypertension. SOCIAL HISTORY: The patient is on disability. He lives alone. Mother is his surrogate decision maker, her name is Jolene Ellis. No alcohol, tobacco, or drug use. REVIEW OF SYSTEMS: General: Positive for fever and chills. HEENT: Negative for any headache, change in vision. Cardiac: Negative for chest pain. No history of NE. Respiratory: Negative for any shortness of breath. GI: Negative for nausea, vomiting, diarrhea, or abdominal pain. He does have a history of frequent stools with VANCOMYCIN, though negative for C. diff testing. : No dysuria. Musculoskeletal: Positive for right dorsal foot ulceration without any associated pain. Neuro: Dense neuropathy bilateral lower extremities. Hematology: No history of blood clots. PHYSICAL EXAMINATION Vital Signs: Temperature 97.9, pulse rate 103, respiratory rate 94, oxygen saturation on room air 97%, and blood pressure 127/76. General: No acute distress. The patient is mildly diaphoretic, reportedly severely diaphoretic upon presentation to Dr. Perea's office today. HEENT: Normocephalic, atraumatic. Extraocular movements intact. Respiratory: Clear to auscultation bilaterally. Cardiac: S1, S2. No murmur appreciated. Abdomen: Bowel sounds normoactive. Soft, nontender. No guarding. No rigidity. Extremities: Bilateral upper extremities and left lower extremity with skin envelope intact, nontender to palpation, able to flex and extend all joints without pain. Right lower extremity: The patient has bandage over his right foot which was not taken down as it was placed by Dr. Perea this morning. Reportedly there is a quarter sized ulceration with beefy red tissue and purulent discharge that is without any foul odor. The patient has decreased sensation bilateral lower extremities as well as Charcot deformity of bilateral feet. DIAGNOSTIC STUDIES/LAB DATA: White blood cell count 6.7. INR 1.15. Sodium 136 , potassium 4.3, lactic acid 1.5. Blood cultures have been ordered prior to IV abx though he has been on bactrim outpatient. Sed rate is ordered and pending. CT of the right foot and ankle ordered for today. ASSESSMENT: Right foot ulceration overlying hardware with history of methicillin- sensitive Staphylococcus aureus. PLAN: The patient will be nonweightbearing on right lower extremity. I have discussed his case with Infectious Disease. He is well known to them and recommendation is linezolid 600 mg IV b.i.d. and he will be seen by Infectious Disease in the morning. He will be seen by the hospitalist service for medical optimization as well. I have ordered laboratory testing including CBC, BMP, INR , sed rate, CRP, and blood cultures. Blood cultures to be obtained before antibiotics start. He will be placed on subcu heparin until midnight, at which time it should be held and he should be n.p.o. at midnight as well for I and D tomorrow by Dr. Perea. WILL VILLALPANDO [id number]/[facility] #: [id number] ANNE
[2019-11-23] MEDS ORDERED: Linezolid 600 MG IVPREMIX(*) 600 MG/300 ML BAG IVPB SCH (15:30)
[2019-11-23 15:58] LABS: Erythrocyte Sed Rate 34 mm/Hr (0-19)
[2019-11-23] MEDS: Linezolid 600 MG IVPREMIX(*) 600 MG/300 ML BAG IVPB SCH (16:20)
[2019-11-23] MEDS ORDERED: Insulin LISPRO* 1 UNITS UNIT SUBCUT SCH (17:00)
[2019-11-23 17:35] LABS: ABS Eosinophils 0.1 10^3/ul (0-0.6); ABS Lymphocytes 0.7 10^3/ul (1.0-4.8); ABS Monocytes 0.7 10^3/ul (0-0.8); ABS Neutrophils 4.5 10^3/ul (1.5-7.7); Eosinophil % 1.9 %; Hematocrit 35 % (42-52); Lymphocyte % 11.4 %; Mean Corpuscular HGB Conc 34 g/dL (31-36); Mean Corpuscular Hemoglobin 30 pg (27-31); Mean Corpuscular Volume 89 fL (80-94); Mean Platelet Volume 6.3 fL (7.4-10.4); Platelet Count 203 10^3/uL (150-450); Red Blood Count 3.96 10^6 /uL (4.18-5.48); Red Cell Distribution Width 14 % (10-15); White Blood Count 6.1 10^3/uL (3.5-10.8)
[2019-11-23 17:50] LABS: EGFR African American 71.1 (>60); EGFR Non-African American 58.8 (>60)
--- NOTE | 2019-11-23 21:10 | CONS ---
HOSPITAL MEDICINE CONSULTATION REPORT: DATE OF CONSULT: 11/23/19. PROVIDER: Mary Lou Mckeon NP. ATTENDING PHYSICIAN: Dr. Perea. CONSULTING PHYSICIAN: Dr. Chasity Angel (dictated by Mary Lou Mckeon NP). REASON FOR CONSULT: Comanagement of chronic medical conditions. HISTORY OF PRESENT ILLNESS: Mr. Yanes is a 54-year-old male with a past medical history significant for right Charcot foot, GERD, diabetes type 2, hypertension, hyperlipidemia, and chronic foot ulceration, who presented for surgical management of his non-healing right foot ulcer as a direct admission from Dr. Perea's office. Please see dictated H and P from Rhina Ulloa, for complete details. In brief, the patient has had a chronic non-healing right foot ulcer that had surgical revision last in July 2019 that continues to have a non-healing ulcer. So, he was sent in for further surgical management of this non-healing ulcer. The patient reports that he has had fevers and chills for the past 2 days. Denies any chest pain or shortness of breath. Denies any nausea, vomiting or diarrhea. Denies any abdominal pain. Denies any urinary frequency, urgency, or pain with urination. Denies any dysphagia, arthralgias, myalgias. He does have a dressing that is dry and intact to his right foot. Due to the patient's chronic medical conditions of diabetes, hypertension, hyperlipidemia, Hospital Medicine was asked to see help co- manage his care during this hospitalization. PAST MEDICAL HISTORY: Significant for GERD, type 2 diabetes, right Charcot foot , hypertension, hyperlipidemia, chronic non-healing right foot ulcer. PAST SURGICAL HISTORY: Left great toe amputation, skin graft to the right foot treatment in November 2017, right foot surgery in May 2019, and again in July 2019. HOME MEDICATIONS: Include: 1. Nexium 40 mg p.o. daily. 2. Actos 15 mg p.o. daily. 3. Lisinopril 20 mg p.o. daily. 4. Glargine 150 units subcu q.a.m. 5. Lispro 40 units t.i.d. with meals. 6. Lipitor 40 mg p.o. daily. 7. Atenolol 50 mg p.o. daily. 8. Trulicity 1.5 mg subcu weekly, last dose was . ALLERGIES: ALMONDS. Allergy to VANCOMYCIN due to kidney damage. VANCOMYCIN is listed as an adverse effect. FAMILY HISTORY: Father with hypertension, mother with hypertension, mother with diabetes, father with stroke, at the age of 77. SOCIAL HISTORY: The patient denies any tobacco. Does report occasional alcohol use. No illicit drug use. 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 He typically lives in [place], but is here staying in [place] with his friends. Surrogate decision maker in the event he is unable to make his own decisions Tyler [phone]. He is a full code. REVIEW OF SYSTEMS: A 14 point review of systems was completed. All pertinent positives are mentioned in the HPI. Otherwise have been negative. PHYSICAL EXAM: General: At this time, Mr. Yanes is alert and oriented, resting in his hospital bed. He is in no acute distress. Vital Signs: Temperature 98.7, heart rate of 100, respirations 19, O2 saturation 97%, blood pressure 117/56. HEENT: Head is atraumatic, normocephalic. Eyes: EOMs are intact. Sclerae anicteric and not pale. Oral mucosa appeared to be moist. Neck is supple. Lungs are clear to auscultation bilaterally. No wheezes, rales , or rhonchi. Cardiac: S1, S2. Regular rate and rhythm. No murmurs, rubs, or gallops. Abdomen is soft and nontender. Bowel sounds are present x4. Extremities: There is no clubbing or cyanosis. He does have a dressing that is intact to his right knee. Does have healed scars noted to his left leg. Skin: He does have a dressing that is intact to his right foot. Neurologic: He is awake, alert, oriented x3. Speech is clear. Thought process is intact. There are no gross focal deficits. DIAGNOSTIC STUDIES/LAB DATA: WBCs are 6.1, RBCs 3.96, hemoglobin 12.0, hematocrit 35, platelet count 203. Neutrophils are 74.4, ESR was 34, INR was 1.15. Sodium 136, potassium 4.3, chloride 102, carbon dioxide 23, anion gap of 11, BUN was 36, creatinine was 1.31, lactic acid was 1.5, calcium was 9.7. He had a CT of the lower extremity, diffuse soft tissue swelling and soft tissue ulcer along the medial aspect of the mid foot. There are post-surgical changes and findings consistent with Charcot joint, possibility of osteomyelitis cannot be excluded. No abscess seen. MR imaging may be helpful in further evaluation though may be limited due to the surgical hardware present. IMPRESSION AND PLAN: Mr. Yanes is a 54-year-old male with a past medical history significant for type 2 diabetes, gastroesophageal reflux disease, hypertension, hyperlipidemia, chronic non-healing right foot ulcer, who presented to [facility] from Dr. Perea's office for surgical management of his non- healing right foot ulcer and infection. Recommendations are as follows: 1. Right foot ulceration. Management per Orthopedics. Pain management per Orthopedics. Bowel regimen per Orthopedics. 2. Type 2 diabetes. Insulin dependent. I will hold his glargine tomorrow morning as he is going to be n.p.o. for surgery. This will need to resume after surgery. The patient does take 150 units of glargine at home. I would reduce this to 60 units while in the hospital. We will titrate glargine as needed. He also takes lispro 40 units t.i.d. with meals. We will decrease that to 15 units with meals but will hold this while he is n.p.o. We will continue fingersticks a.c. and h.s. I will do fingersticks q. 4 hours while he is n.p.o. I will hold his Trulicity and Actos as well. 3. Acute kidney injury. The patient does have acute kidney injury. His creatinine is slightly elevated at 1.13. His baseline is 1.06. I would recommend IV fluids overnight and repeat a BMP in the a.m. Avoid nephrotoxic medications. I will hold his lisinopril. 4. Hypertension. I will hold his lisinopril. He can continue his atenolol 50 mg p.o. daily. We will hold this prior to surgery. 5. Gastroesophageal reflux disease. He should continue on Nexium 40 mg p.o. daily. 6. FEN: He can have consistent carb diet, then will be n.p.o. after midnight. 7. Code status: He is a full code. 6. DVT prophylaxis: Per Orthopedics. TIME SPENT: Time spent on this consultation was 45 minutes, greater than half that time was spent at the bedside reviewing events leading thus far to his hospitalization, performing physical exam, and reviewing my plan of care. I have discussed this with my attending Dr. Chasity Angel; she is in agreement with my plan. MARY LOU MCKEON, EULOGIO [id number]/[facility] #: [id number] ANNE
[2019-11-23] MEDS ORDERED: Lactated Ringers 1000 ML Bag* 1,000 ML IV SCH (22:00)
[2019-11-23] MEDS: Magnesium Hydroxide LIQ* 30 ML UDC PO SCH (22:05)
[2019-11-23] MEDS: Docusate CAP* 100 MG PO SCH (22:05)
[2019-11-23] MEDS: Atorvastatin* 40 MG TAB PO SCH (22:06)
[2019-11-24] MEDS: Linezolid 600 MG IVPREMIX(*) 600 MG/300 ML BAG IVPB SCH ×2 (03:31→18:25)
[2019-11-24] MEDS: Acetaminophen TAB* 325 MG PO SCH ×3 (06:20→22:17)
--- NOTE | 2019-11-24 07:52 | PN ---
Subjective Date of Service: 11/24/19 Interval History: Patient is feeling febrile this AM. Patient complains of chronic pain in his shoulder and no pain in foot. Patient denies CP, SOB, Dizziness, abdominal pain , diarrhea, or other pain. Patient has had no issues with CP, SOB, LE swelling, orthopnea, or LEARY prior to admission. Family History: Unchanged from Admission Social History: Unchanged from Admission Past Medical History: Unchanged from Admission Objective Active Medications: Acetaminophen (Tylenol Tab*) 975 mg PO Q8HR [facility] Last Admin: 11/24/19 06:20 Dose: Not Given Atenolol (Tenormin Tab*) 50 mg PO QAM [facility] Atorvastatin Calcium (Lipitor*) 40 mg PO BEDTIME [facility] Last Admin: 11/23/19 22:06 Dose: 40 mg Bisacodyl (Dulcolax Supp*) 10 mg RI DAILY PRN PRN Reason: CONSTIPATION Diphenhydramine HCl (Benadryl Iv*) 25 mg IV Q6H PRN PRN Reason: PRURITIS Diphenhydramine HCl (Benadryl Po*) 25 mg PO Q6H PRN PRN Reason: PRURITIS Docusate Sodium (Colace Cap*) 100 mg PO BID [facility] Last Admin: 11/23/19 22:05 Dose: Not Given Linezolid (Zyvox 600 Mg Ivpremix(*)) 600 mg in 300 mls @ 300 mls/hr IVPB Q12H [facility] Last Admin: 11/24/19 03:31 Dose: 300 mls/hr Lactated Ringer's (Lactated Ringers 1000 Ml Bag*) 1,000 mls @ 100 mls/hr IV PER RATE [facility] Stop: 11/24/19 07:59 Last Admin: 11/24/19 03:47 Dose: 100 mls/hr Insulin Human Lispro (Humalog*) 15 units SUBCUT TID WITH MEALS [facility] Lactulose (Lactulose*) 30 ml PO BID PRN PRN Reason: CONSTIPATION Magnesium Hydroxide (Milk Of Magnesia Liq*) 30 ml PO BID [facility] Last Admin: 11/23/19 22:05 Dose: Not Given Magnesium Hydroxide (Milk Of Magnesia Liq*) 30 ml PO Q6H PRN PRN Reason: CONSTIPATION Morphine Sulfate (Morphine Inj (Syringe))*) 2 mg IV Q4H PRN PRN Reason: Pain - Unrelieved Multivitamins (Theragran Tab*) 1 tab PO DAILY [facility] Ondansetron HCl (Zofran Inj*) 4 mg IV Q6H PRN PRN Reason: NAUSEA Ondansetron HCl (Zofran Odt Tab*) 4 mg PO Q6H PRN PRN Reason: NAUSEA Oxycodone HCl (Roxycodone Tab*) 10 mg PO Q4H PRN PRN Reason: Pain - Breakthrough Oxycodone HCl (Roxycodone Tab*) 5 mg PO Q4H PRN PRN Reason: Pain - Breakthrough Vital Signs - 8 hr 11/24/19 11/24/19 11/24/19 00:11 01:39 03:52 Temperature 98.0 F 98.0 F Pulse Rate 93 95 Respiratory 16 16 Rate Blood Pressure 137/83 128/62 (mmHg) O2 Sat by Pulse 96 96 97 Oximetry Oxygen Devices in Use Now: None Appearance: Patient is a 54yo male who appears stated age and is sitting in the bed in [facility]. Eyes: No Scleral Icterus, PERRLA Ears/Nose/Mouth/Throat: NL Teeth, Lips, Gums, Clear Oropharnyx, Mucous Membranes Moist Neck: NL Appearance and Movements; NL JVP, Trachea Midline Respiratory: Symmetrical Chest Expansion and Respiratory Effort, Clear to Auscultation Cardiovascular: NL Sounds; No Murmurs; No JVD, RRR, - - Trace B/L LE edema. Abdominal: NL Sounds; No Tenderness; No Distention, No Hepatosplenomegaly Lymphatic: No Cervical Adenopathy Extremities: No Edema, No Clubbing, Cyanosis Skin: No Nodules or Sclerosis, - - Right Foot Covered in dressing and ulcer not visualized. Neurological: Alert and Oriented x 3, NL Muscle Strength and Tone, - - CN II- XII intact. Result Diagrams: 11/23/19 17:28 11/23/19 17:28 Assess/Plan/Problems-Billing Assessment: Patient is a 54yo male with a PM for DM II and chronic LE wound who is admitted for poor wound healing and concern for infection in right foot wound. - Patient Problems (1) Right foot infection Current Visit: No Status: Acute Code(s): L08.9 - LOCAL INFECTION OF THE SKIN AND SUBCUTANEOUS TISSUE, UNSP SNOMED Code(s): 128946356 Comment: - Infection of previous surgical site with poorly healing wound. - Appreciate ID input - Continue Linezolid - To OR today. Patient has an RCRI of 1 for nsulin use, indicating a 6% 30 day risk of MACE. Patient has no functional limitations related to LEARY and is capable of >4 METS. Patient had an echocardogram in late 2019 which showed normal EF and was otherwise unremarkable. EKF pending, pending lack of ischemic changes, patient is medically optimized for surgery with no additional cardiac testing indicated. Patient is a moderate risk for this low risk surgery. (2) Type II diabetes mellitus Current Visit: No Status: Acute Comment: - Insulin held for surgery and being NPO. - Q4H FSBG - Lantus and scheduled insulin with SSI when not NPO (3) Charcot's joint of right foot Current Visit: No Status: Acute Code(s): M14.671 - CHARCOT'S JOINT, RIGHT ANKLE AND FOOT SNOMED Code(s): 513511489 Comment: - Due to DM II - Management per Orthopedics (4) HLD (hyperlipidemia) Current Visit: No Status: Acute Code(s): E78.5 - HYPERLIPIDEMIA, UNSPECIFIED SNOMED Code(s): 10083547 Comment: - Continue lipitor. (5) HTN (hypertension) Current Visit: No Status: Acute Code(s): I10 - ESSENTIAL (PRIMARY) HYPERTENSION SNOMED Code(s): 69047018 Comment: - Continue Atenolol perioperatively - Hold Lisinopril perioperatively. (6) DVT prophylaxis Current Visit: No Status: Acute Code(s): Z29.9 - ENCOUNTER FOR PROPHYLACTIC MEASURES, UNSPECIFIED SNOMED Code(s): 008195422 Comment: - Hold SQ heparin for surgery (7) Full code status Current Visit: No Status: Acute Code(s): Z78.9 - OTHER SPECIFIED HEALTH STATUS SNOMED Code(s): 172134936
[2019-11-24] MEDS: Docusate CAP* 100 MG PO SCH ×2 (07:55→21:01)
[2019-11-24] MEDS: Insulin LISPRO* 1 UNITS UNIT SUBCUT SCH ×3 (07:55→17:00)
[2019-11-24] MEDS: Magnesium Hydroxide LIQ* 30 ML UDC PO SCH ×2 (07:55→21:01)
[2019-11-24] MEDS: Vitamin THERAPEUTIC TAB PO SCH (07:56)
[2019-11-24] MEDS ORDERED: Atenolol TAB* 50 MG PO SCH (09:00)
[2019-11-24] MEDS ORDERED: Famotidine IV* 10 MG/ML 2 ML (20 mg) IV ONE (16:00)
[2019-11-24] MEDS ORDERED: Buffered Lidocaine 1% SYRIN* 1 ML/SYRINGE INTRADERM ONE (16:00)
[2019-11-24] MEDS ORDERED: DiMENhydriNATE IV* 50 MG/ML VIAL IV PUSH PRN (16:01)
[2019-11-24] MEDS ORDERED: Ondansetron INJ* 2 MG/ML VIAL IV PRN (16:01)
[2019-11-24] MEDS ORDERED: Naloxone* 0.4 MG/ML 1 ML VIAL IV PRN (16:01)
[2019-11-24] MEDS ORDERED: Famotidine IV* 10 MG/ML 2 ML (20 mg) ONE (16:11)
[2019-11-24] MEDS: Lactated Ringers 1000 ML Bag* 1,000 ML IV SCH ×2 (16:18→20:53)
[2019-11-24] MEDS ORDERED: Bupivacaine 0.5%* 50 ML MDV VIAL ONE (16:59)
[2019-11-24] MEDS ORDERED: Midazolam* 1 MG/ML 5 ML VIAL (5 MG) ONE (17:20)
[2019-11-24] MEDS ORDERED: KETAMINE HCL* 50 MG/ML 10 ML VIAL ONE (17:20)
[2019-11-24] MEDS ORDERED: fentaNYL* 50 MCG/ML 2 ML VIAL (100 MCG VIAL) ONE (17:20)
[2019-11-24] MEDS ORDERED: Lidocaine 1% INJ* 10 MG/ML 30 ML SDV ONE (17:25)
[2019-11-24] MEDS ORDERED: Lidocaine 2% PF * 5 ML VIAL ONE (18:13)
[2019-11-24] MEDS ORDERED: Metoprolol Tartrate IV* 1 MG/ML 5 ML VIAL ONE (18:13)
[2019-11-24] MEDS ORDERED: Propofol* 10 MG/ML 20 ML BTL ONE (18:13)
--- NOTE | 2019-11-24 18:46 | CONS ---
CONSULTATION REPORT: DATE OF CONSULT: 11/24/19 PRIMARY CARE PROVIDER: Dr. Hosea Alarcon. PROVIDER REQUESTING CONSULTATION: WILL Hernandez. CONSULTING SERVICE: Infectious Disease. PROVIDER: Parish Rooney NP ATTENDING PROVIDER: Dr. Bahman Tavarez * (dictated by PARISH ROONEY NP). REASON FOR CONSULT: Right foot infection. IMPRESSION: 1. Right foot infection. The patient has previously been treated for chronic osteomyelitis in this foot. He had dehiscence of a surgical wound that has been nonhealing since August of 2019. He is followed with the [facility] wound clinic. No cultures have been taken from this area. Previously, this foot has grown MRSA. He had a CT scan on admission showing diffuse soft tissue swelling with an ulcer to the medial aspect of the midfoot. He has an elevated CRP. He has been febrile during his stay, fever this morning of 100.8. CRP elevated on admission. Dr. Perea is planning to take him to surgery for a debridement later today. He did have blood cultures on admission with no growth in the preliminary results. I did discuss the case with Orthopedics, they do not feel an MRI will be helpful at this point. Suspect this represents a diagnosis of cellulitis with nonhealing wound versus underlying osteomyelitis. 3. Acute kidney injury. In May, the patient's baseline creatinine was 0.7 to 1. He did have an acute kidney injury over the summary secondary to vancomycin he was receiving. Creatine remains elevated above baseline. 4. Diabetes mellitus type 2. 5. VANCOMYCIN allergy. The patient had an acute kidney injury from vancomycin and elevated eosinophils while receiving this over the summer. RECOMMENDATIONS/PLAN: Recommend continuing linezolid at this time. Cultures should be obtained while in the OR. Further recommendations will be based on the culture results obtained in the OR and findings in the OR. HISTORY OF PRESENT ILLNESS: Mr. Yanes is a 54-year-old male with past medical history significant for diabetes mellitus type 2, right foot Charcot joint, hypertension, hyperlipidemia, non-pressure related chronic ulcer to the dorsal aspect of the right foot, history of C. diff and osteomyelitis, who initially presented in May with a right foot infection. At that time, he had MRSA bacteremia and chronic osteomyelitis. He was admitted to the hospital from June 17 through , and was discharged on a long course of IV antibiotics of vancomycin for 6 weeks and was transitioned to a 2-week course of doxycycline. The foot was doing well. He underwent reconstruction of the right foot by Dr. Perea on 08/14/19 with realignment of the midfoot, refusion of the talonavicular joint and tibial bone graft. He states that he had been doing well postoperatively. In August after having all of the sutures removed from the incision on the dorsal aspect of his right foot, an area opened up at the site of a previous skin graft and this area has been open ever since. He has been following with Dr. Perea and the wound clinic. The wound clinic had been discussing the possibility of starting a wound VAC in the upcoming week. Approximately 4 days ago, he developed purulent drainage from this wound. He reports having undermining to the wound. He was started on Bactrim outpatient, which he was on for 2 days without any improvement in his symptoms. He was at the orthopedic office yesterday to see Dr. Grande for shoulder pain where he was diagnosed with a bursitis and mentioned to Dr. Perea the changes in the wound on his foot and Dr. Perea direct him to the hospital for admission. While in the hospital, he has had blood cultures with no growth. He has labs with no leukocytosis, elevated ESR, elevated CRP, noted to have an elevated creatinine. His previous baseline creatinine was 0.79 to 1.08 in May, his creatinine had returned to 1.06 in July. Orthopedics is planning to take him to the OR today for debridement, possible wound VAC placement. He has been on linezolid due to his history of a vancomycin reaction in the past. He is mostly feeling well. He denies any fevers or chills since he has had fevers and chills on Wednesday. Denies shortness of breath, cough, muscle pain, joint pain, nausea, vomiting, diarrhea, urinary symptoms, or recent travel. PAST MEDICAL HISTORY: 1. Diabetes mellitus type 2. 2. Charcot joint of the right foot. 3. Hypertension. 4. Hyperlipidemia. 5. Non-pressure related right chronic foot ulcer. 6. History of C. diff. 7. History of chronic osteomyelitis in the right foot. PAST SURGICAL HISTORY: 1. Status post left first toe amputation. 2. Status post left fifth toe amputation. 3. Status post multiple right foot surgeries. 4. Status post bilateral cataract extraction. MEDICATIONS: Home medications: 1. Lantus insulin 130 units subcutaneous every morning. 2. Acetaminophen 975 mg by mouth every 8 hours as needed for pain. 3. Atorvastatin 40 mg by mouth daily. 4. Atenolol 50 mg by mouth every a.m. 5. Trulicity 1.5 mg subcutaneous every . 6. Lisinopril 20 mg by mouth daily. 7. Actos 15 mg by mouth daily. 8. Lispro insulin 36 units subcutaneous 3 times daily with meals. Hospital medications: 1. Acetaminophen 975 mg by mouth every 8 hours. 2. Atenolol 50 mg by mouth every morning. 3. Atorvastatin 40 mg by mouth daily at bedtime. 4. Bisacodyl 10 mg per rectum daily as needed for constipation. 5. Benadryl 25 mg IV or p.o. every 6 hours as needed for itching. 6. Colace 100 mg by mouth twice daily. 7. Lispro insulin 15 units subcutaneous 3 times daily with meals. 8. Lactulose 30 mL by mouth twice daily as needed for constipation. 9. Linezolid 600 mg IV every 12 hours. 10. Milk of magnesia 30 mL by mouth twice daily until BMs and every 6 hours as needed for constipation. 11. Morphine sulfate 2 mg IV every 4 hours as needed for pain. 12. Multivitamin 1 tablet by mouth daily. 13. Zofran 4 mg IV or p.o. every 6 hours as needed for nausea. 14. Oxycodone 5 to 10 mg by mouth every 4 hours as needed for pain. ALLERGIES: Nuts, VANCOMYCIN. The patient had acute kidney injury while on VANCOMYCIN in the past. FAMILY HISTORY: The patient's father with a history of CVA. No family history of recurrent or resistant infections. No family history of coronary artery disease or cancer. Mother with a history of diabetes in addition to a brother and a maternal grandfather. SOCIAL HISTORY: Denies alcohol or recreational drug use. He is a former smoker. REVIEW OF SYSTEMS: I performed a 10-point review of systems. All the pertinent positives and negatives are mentioned in the history of present illness. The remaining review of systems are negative. PHYSICAL EXAM: Vital Signs: Temperature 100.8, heart rate 106, respiratory rate 18, O2 sat 95% on room air, blood pressure 155/75. General Appearance: He is in no acute distress, lying in bed. Head: Normocephalic, atraumatic. EENT: Extraocular movements are intact. No subconjunctival hemorrhage. Moist mucous membranes. Neck: Supple. No lymphadenopathy. Neurological: Alert and oriented x4. Cranial nerves II through XII are grossly intact. Cardiovascular: Regular rate and rhythm. S1 and S2 present. No murmurs, rubs , or gallops heard. Respiratory: No accessory muscle use. The lungs are clear to auscultation bilaterally. Abdomen: Bowel sounds present. Abdomen is soft, nontender, nondistended. Extremities: There is no lower extremity edema. DP and PT pulses are 2+ and symmetric. Musculoskeletal: No clubbing or cyanosis noted. Exhibits good strength in all extremities. Psychological: Calm and cooperative. Skin: No rashes or abnormalities seen. Dressing to his right foot that was not removed per patient request. DIAGNOSTIC STUDIES/LAB DATA: From 11/23/19: Sodium 136, potassium 4.3, chloride 102, CO2 of 23, BUN 36, creatinine 1.31, glucose 208. White blood cell count 6.1, hemoglobin 12.0, hematocrit 35, platelet count 203. ESR 34. CRP 102.84. Please see impression and recommendations outlined above, recommendations have been discussed with WILL Roberson and WILL Holliday. Thank you for asking us to see Mr. Yanes in consultation. The case has been reviewed with my attending, Dr. Bahman Tavarez, who agrees with the plan of care. Reviewed by LAURENCE ABBASI 11/27/19 0851 [id number]/[facility] #: [id number] MTDLoida
[2019-11-24] MEDS: Atorvastatin* 40 MG TAB PO SCH (20:43)
[2019-11-24] MEDS: Sulfamethox/Trimethoprim DS 800/160* TAB PO SCH (21:32)
[2019-11-24] MEDS: oxyCODONE/Acetamin 5/325 MG* TAB PO PRN (22:13)
--- NOTE | 2019-11-25 01:53 | OP ---
DATE OF OPERATION: 11/24/19 - ROOM #[id number] DATE OF : 67 ATTENDING SURGEON: Hosea Perea MD ASSISTED BY: WILL Pickard PRE-OP DIAGNOSIS: Wound breakdown dehiscence, right midfoot with possible deep infection. POST-OP DIAGNOSIS: Wound breakdown dehiscence, right midfoot with possible deep infection. OPERATIVE PROCEDURE: Debridement, irrigation right wound with excision of ulcer , bone biopsy, deep culture, and VAC dressing. DESCRIPTION OF PROCEDURE: The patient was taken to the operating room where lidocaine was instilled around his wound with sedation. We made longitudinal incisions to the previous dorsal medial approach to the hindfoot. We elliptically excised the ulcer edges. Local hemostasis was obtained with electrocautery. We dissected subperiosteally dorsal and medial to explore for any pockets of purulence; we did not encounter any. We did remove the majority of the broken oly, but the deep broken legs were not visible. We gave a 3 L irrigation of the soft tissues. Culture sent as well, and then we closed the distal and proximal portions of the wound with a VAC dressing applied in the mid third and applied to standard suction. [id number]/[facility] #: [id number] MTDLoida
[2019-11-25] MEDS: Linezolid 600 MG IVPREMIX(*) 600 MG/300 ML BAG IVPB SCH ×2 (03:33→15:27)
[2019-11-25] MEDS: Lactated Ringers 1000 ML Bag* 1,000 ML IV SCH ×2 (06:17→06:21)
[2019-11-25] MEDS: oxyCODONE/Acetamin 5/325 MG* TAB PO PRN (06:18)
[2019-11-25] MEDS: Acetaminophen TAB* 325 MG PO SCH ×3 (07:06→20:50)
[2019-11-25] MEDS: oxyCODONE TAB* 5 MG TAB PO PRN ×3 (08:51→20:45)
[2019-11-25] MEDS: Insulin LISPRO* 1 UNITS UNIT SUBCUT SCH ×3 (08:51→17:41)
[2019-11-25] MEDS: Vitamin THERAPEUTIC TAB PO SCH (08:52)
[2019-11-25] MEDS: Sulfamethox/Trimethoprim DS 800/160* TAB PO SCH ×2 (08:52→20:45)
[2019-11-25] MEDS: Magnesium Hydroxide LIQ* 30 ML UDC PO SCH ×2 (08:52→20:50)
[2019-11-25] MEDS: Atenolol TAB* 50 MG PO SCH (08:52)
[2019-11-25] MEDS: Docusate CAP* 100 MG PO SCH ×2 (08:52→20:50)
[2019-11-25] MEDS ORDERED: Bisacodyl SUPP* 10 MG SUPP PR PRN (10:02)
--- NOTE | 2019-11-25 12:31 | PN ---
Progress Note - Progress Note Date of Service: 11/25/19 SOAP: Subjective: Pt is doing well. Pain controlled. Denies F/C, Cp/SOb or calf pain Objective: PE- 54 y/o WDWN M NAD RLE- dressing intact, wound vac intact and functioning properly, decreased sensation distally, brisk cap refill, NVI, Able to F/E toes Vital Signs Temp Pulse Resp BP Pulse Ox 98.7 F 97 16 133/68 96 11/25/19 11:41 11/25/19 11:41 11/25/19 11:41 11/25/19 11:41 11/25/19 11:41 Laboratory Results - last 24 hr 11/24/19 11/24/19 11/24/19 05:04 07:35 11:24 POC Glucose (mg/dL) 152 H 153 H Hemoglobin A1c 7.6 H 11/24/19 11/24/19 11/25/19 16:16 20:40 08:24 POC Glucose (mg/dL) 114 H 170 H 196 H Hemoglobin A1c 11/25/19 12:04 POC Glucose (mg/dL) 269 H Hemoglobin A1c Assessment: POD 1 I&D with wound vac placement right foot infection Concern for osteomyelitis Plan: NWB RLE Cont wound vac, possible change Wednesday with Dr. Perea Cont linezolid and bactrim Awaiting bone cultures to R/O osteomyelitis CBC tomorrow am to monitor WBC Appreciate ID input
[2019-11-25] MEDS: Enoxaparin(*) 40 MG/0.4 ML SYR SUBCUT SCH (12:43)
[2019-11-25] MEDS: Lisinopril TAB* 10 MG PO SCH (12:44)
[2019-11-25] MEDS ORDERED: Insulin GLARGINE(*) 1 UNITS UNIT SUBCUT SCH (13:00)
--- NOTE | 2019-11-25 17:46 | PN ---
Subjective Date of Service: 11/25/19 Interval History: No acute events overnight. Tmax 100 POD#1 from right midfoot debridement and wound vac. Bactrim was started last night by Ortho. Linezolid continues Denies chest pain, abdominal pain, SOB, fevers, chills, n/v/d/c. Family History: Unchanged from Admission Social History: Unchanged from Admission Past Medical History: Unchanged from Admission Objective Active Medications: Acetaminophen (Tylenol Tab*) 975 mg PO Q8HR [facility] Last Admin: 11/25/19 13:27 Dose: Not Given Atenolol (Tenormin Tab*) 50 mg PO QAM [facility] Last Admin: 11/25/19 08:52 Dose: 50 mg Atorvastatin Calcium (Lipitor*) 40 mg PO BEDTIME [facility] Last Admin: 11/24/19 20:43 Dose: 40 mg Bisacodyl (Dulcolax Supp*) 10 mg [place] DAILY PRN PRN Reason: CONSTIPATION Diphenhydramine HCl (Benadryl Iv*) 25 mg IV Q6H PRN PRN Reason: PRURITIS Diphenhydramine HCl (Benadryl Po*) 25 mg PO Q6H PRN PRN Reason: PRURITIS Docusate Sodium (Colace Cap*) 100 mg PO BID [facility] Last Admin: 11/25/19 08:52 Dose: Not Given Enoxaparin Sodium (Lovenox(*)) 40 mg SUBCUT Q24H [facility] Last Admin: 11/25/19 12:43 Dose: 40 mg Linezolid (Zyvox 600 Mg Ivpremix(*)) 600 mg in 300 mls @ 300 mls/hr IVPB Q12H [facility] Last Admin: 11/25/19 15:27 Dose: 300 mls/hr Lactated Ringer's (Lactated Ringers 1000 Ml Bag*) 1,000 mls @ 125 mls/hr IV PER RATE [facility] Last Admin: 11/25/19 06:21 Dose: 125 mls/hr Insulin Glargine (Lantus(*)) 50 units SUBCUT Q24H [facility] Last Admin: 11/25/19 12:44 Dose: 50 units Insulin Human Lispro (Humalog*) 25 units SUBCUT TID WITH MEALS [facility] Lactulose (Lactulose*) 30 ml PO BID PRN PRN Reason: CONSTIPATION Lisinopril (Prinivil Tab*) 10 mg PO DAILY [facility] Last Admin: 11/25/19 12:44 Dose: 10 mg Magnesium Hydroxide (Milk Of Magnesia Liq*) 30 ml PO BID [facility] Last Admin: 11/25/19 08:52 Dose: Not Given Magnesium Hydroxide (Milk Of Magnesia Liq*) 30 ml PO Q6H PRN PRN Reason: CONSTIPATION Morphine Sulfate (Morphine Inj (Syringe))*) 2 mg IV Q4H PRN PRN Reason: Pain - Unrelieved Multivitamins (Theragran Tab*) 1 tab PO DAILY [facility] Last Admin: 11/25/19 08:52 Dose: 1 tab Ondansetron HCl (Zofran Inj*) 4 mg IV Q6H PRN PRN Reason: NAUSEA Ondansetron HCl (Zofran Odt Tab*) 4 mg PO Q6H PRN PRN Reason: NAUSEA Oxycodone HCl (Roxycodone Tab*) 10 mg PO Q4H PRN PRN Reason: Pain - Breakthrough Oxycodone HCl (Roxycodone Tab*) 5 mg PO Q4H PRN PRN Reason: Pain - Breakthrough Last Admin: 11/25/19 13:27 Dose: 5 mg Oxycodone/Acetaminophen (Percocet 5/325 Tab*) 1 tab PO Q4H PRN PRN Reason: PAIN - MODERATE Last Admin: 11/25/19 06:18 Dose: 1 tab Trimethoprim/Sulfamethoxazole (Bactrim Ds 800/160 Tab*) 1 tab PO BID [facility] Last Admin: 11/25/19 08:52 Dose: 1 tab Vital Signs - 8 hr 11/25/19 11/25/19 11/25/19 10:25 11:41 13:27 Temperature 98.7 F Pulse Rate 97 Respiratory 18 16 18 Rate Blood Pressure 133/68 (mmHg) O2 Sat by Pulse 96 Oximetry 11/25/19 11/25/19 15:28 15:31 Temperature 99.4 F Pulse Rate 99 Respiratory 18 16 Rate Blood Pressure 130/82 (mmHg) O2 Sat by Pulse 95 Oximetry Oxygen Devices in Use Now: None Appearance: NAD Ears/Nose/Mouth/Throat: Clear Oropharnyx Neck: NL Appearance and Movements; NL JVP Respiratory: Symmetrical Chest Expansion and Respiratory Effort, Clear to Auscultation Cardiovascular: NL Sounds; No Murmurs; No JVD, RRR Abdominal: - - distended/obese, soft, nontender. Extremities: No Edema, - - right foot wrapped in ASH c/d/i. Wound vac with minimal drainage. Neurological: Alert and Oriented x 3 Result Diagrams: 11/23/19 17:28 11/23/19 17:28 Additional Lab and Data: Laboratory Results - last 24 hr 11/24/19 11/24/19 11/24/19 07:35 11:24 16:16 POC Glucose (mg/dL) 152 H 153 H 114 H 11/24/19 11/25/19 11/25/19 20:40 08:24 12:04 POC Glucose (mg/dL) 170 H 196 H 269 H 11/25/19 17:23 POC Glucose (mg/dL) 236 H Microbiology and Other Data: Microbiology 11/24/19 17:29 Wound Anaerobic Culture - Preliminary No Growth Day 1 11/24/19 17:29 Wound Gram Stain - Final 11/24/19 17:29 Wound Wound Culture - Preliminary No Growth Day 1 11/23/19 12:14 Blood Venous Aerobic Blood Culture - Preliminary No Growth Day 2 11/23/19 12:14 Blood Venous Anaerobic Blood Culture - Preliminary No Growth Day 2 11/23/19 12:14 Blood Venous Aerobic Blood Culture - Preliminary No Growth Day 2 11/23/19 12:14 Blood Venous Anaerobic Blood Culture - Preliminary No Growth Day 2 Assess/Plan/Problems-Billing Assessment: 54yo male PMH IDDM3 and chronic LE wound who is admitted for poor wound healing and concern for infection in right mid foot wound. Hx of MRSA infection , vancomycin allergic. - Patient Problems (1) Right foot infection Current Visit: No Status: Acute Code(s): L08.9 - LOCAL INFECTION OF THE SKIN AND SUBCUTANEOUS TISSUE, UNSP SNOMED Code(s): 195097844 Comment: - Infection of previous surgical site with poorly healing wound. - Appreciate ID input: Continue Linezolid. Has a history of kidney injury on vancomycin. Would be cautious with addition of bactrim and risks outweigh benefits until ID can weigh in. Get BMP daily while on. - POD #1 with wound vac. (2) Charcot's joint of right foot Current Visit: No Status: Acute Code(s): M14.671 - CHARCOT'S JOINT, RIGHT ANKLE AND FOOT SNOMED Code(s): 817872081 Comment: - Due to DM II - Management per Orthopedics (3) DVT prophylaxis Current Visit: No Status: Acute Code(s): Z29.9 - ENCOUNTER FOR PROPHYLACTIC MEASURES, UNSPECIFIED SNOMED Code(s): 277956757 Comment: - Hold SQ heparin for surgery (4) HLD (hyperlipidemia) Current Visit: No Status: Acute Code(s): E78.5 - HYPERLIPIDEMIA, UNSPECIFIED SNOMED Code(s): 73508291 Comment: - Continue lipitor. (5) HTN (hypertension) Current Visit: No Status: Acute Code(s): I10 - ESSENTIAL (PRIMARY) HYPERTENSION SNOMED Code(s): 00107250 Comment: - Continue Atenolol - restart Lisinopril at 10mg (home is 20mg) SBP 130s. (6) Type II diabetes mellitus Current Visit: No Status: Acute Comment: - Restart lantus at 50U, increase mealtime to from . - FSBG qac (7) Full code status Current Visit: No Status: Acute Code(s): Z78.9 - OTHER SPECIFIED HEALTH STATUS SNOMED Code(s): 728226817 Status and Disposition: ortho inpatient. Medicine in consulting.
[2019-11-25] MEDS ORDERED: Dextrose 50% VIAL 50 ml IV PUSH PRN (17:50)
[2019-11-25] MEDS: Atorvastatin* 40 MG TAB PO SCH (20:45)
[2019-11-26] MEDS: Linezolid 600 MG IVPREMIX(*) 600 MG/300 ML BAG IVPB SCH ×2 (03:47→16:07)
[2019-11-26] MEDS: Acetaminophen TAB* 325 MG PO SCH ×4 (03:47→21:33)
[2019-11-26] MEDS: oxyCODONE TAB* 5 MG TAB PO PRN ×2 (03:48→09:02)
[2019-11-26 04:49] LABS: Hematocrit 31 % (42-52); Hemoglobin 10.9 g/dL (14.0-18.0); Mean Corpuscular HGB Conc 35 g/dL (31-36); Mean Corpuscular Hemoglobin 30 pg (27-31); Mean Corpuscular Volume 88 fL (80-94); Mean Platelet Volume 6.4 fL (7.4-10.4); Platelet Count 157 10^3/uL (150-450); Red Blood Count 3.58 10^6 /uL (4.18-5.48); Red Cell Distribution Width 14 % (10-15); White Blood Count 5.2 10^3/uL (3.5-10.8)
[2019-11-26 05:08] LABS: BUN/Creatinine Ratio 17.3 (8-20); Calcium 8.8 mg/dL (8.6-10.3); EGFR African American 96.8 (>60); Potassium 4.4 mmol/L (3.5-5.0)
[2019-11-26 06:41] LABS: ABS Eosinophils 0.2 10^3/ul (0-0.6); ABS Lymphocytes 0.8 10^3/ul (1.0-4.8); ABS Monocytes 0.8 10^3/ul (0-0.8); ABS Neutrophils 3.4 10^3/ul (1.5-7.7); Eosinophil % 3.8 %; Lymphocyte % 14.6 %
[2019-11-26] MEDS: Vitamin THERAPEUTIC TAB PO SCH (09:03)
[2019-11-26] MEDS: Sulfamethox/Trimethoprim DS 800/160* TAB PO SCH (09:03)
[2019-11-26] MEDS: Lisinopril TAB* 10 MG PO SCH (09:03)
[2019-11-26] MEDS: Atenolol TAB* 50 MG PO SCH (09:03)
[2019-11-26] MEDS: Insulin GLARGINE(*) 1 UNITS UNIT SUBCUT SCH (09:04)
[2019-11-26] MEDS: Insulin LISPRO* 1 UNITS UNIT SUBCUT SCH ×6 (09:04→17:47)
[2019-11-26] MEDS: Docusate CAP* 100 MG PO SCH ×2 (09:07→21:37)
[2019-11-26] MEDS: Magnesium Hydroxide LIQ* 30 ML UDC PO SCH ×2 (09:07→21:37)
--- NOTE | 2019-11-26 12:03 | PN ---
Progress Note - Progress Note Date of Service: 11/26/19 SOAP: Subjective: Pt is doing ok. Feels tired today. Had a 101 temp overnight. Denies Cp/SOB or calf pain Objective: PE- 54 y/o WDWN M NAD RLE- dressing c/d/i, wound vac functioning properly, calf soft NT, no surrounding erythema, +F/E toes, brisk cap refill, SILT distally, NVI Vital Signs Temp Pulse Resp BP Pulse Ox 102 F 107 16 165/60 93 11/26/19 12:03 11/26/19 12:04 11/26/19 12:03 11/26/19 12:03 11/26/19 12:04 Laboratory Results - last 24 hr 11/24/19 11/24/19 11/24/19 07:35 11:24 20:40 WBC RBC Hgb Hct MCV MCH MCHC RDW Plt Count MPV Neut % (Auto) Lymph % (Auto) [place] % (Auto) Eos % (Auto) Baso % (Auto) Absolute Neuts (auto) Absolute Lymphs (auto) Absolute Monos (auto) Absolute Eos (auto) Absolute Basos (auto) Absolute Nucleated RBC Neutrophils % Lymphocytes % Monocytes % Eosinophils % Nucleated RBC % Normal RBC Morphology Sodium Potassium Chloride Carbon Dioxide Anion Gap BUN Creatinine Est GFR ( Amer) Est GFR (Non-Af Amer) BUN/Creatinine Ratio Glucose POC Glucose (mg/dL) 152 H 153 H 170 H Calcium 11/25/19 11/25/19 11/25/19 08:24 12:04 17:23 WBC RBC Hgb Hct MCV MCH MCHC RDW Plt Count MPV Neut % (Auto) Lymph % (Auto) [place] % (Auto) Eos % (Auto) Baso % (Auto) Absolute Neuts (auto) Absolute Lymphs (auto) Absolute Monos (auto) Absolute Eos (auto) Absolute Basos (auto) Absolute Nucleated RBC Neutrophils % Lymphocytes % Monocytes % Eosinophils % Nucleated RBC % Normal RBC Morphology Sodium Potassium Chloride Carbon Dioxide Anion Gap BUN Creatinine Est GFR ( Amer) Est GFR (Non-Af Amer) BUN/Creatinine Ratio Glucose POC Glucose (mg/dL) 196 H 269 H 236 H Calcium 11/26/19 11/26/19 04:44 04:44 WBC 5.2 RBC 3.58 L Hgb 10.9 L Hct 31 L MCV 88 MCH 30 MCHC 35 RDW 14 Plt Count 157 MPV 6.4 L Neut % (Auto) 64.7 Lymph % (Auto) 14.6 [place] % (Auto) 16.4 Eos % (Auto) 3.8 Baso % (Auto) 0.5 Absolute Neuts (auto) 3.4 Absolute Lymphs (auto) 0.8 L Absolute Monos (auto) 0.8 Absolute Eos (auto) 0.2 Absolute Basos (auto) 0.0 Absolute Nucleated RBC 0.0 Neutrophils % 66.0 Lymphocytes % 14.0 Monocytes % 16.0 Eosinophils % 4.0 Nucleated RBC % 0.0 Normal RBC Morphology Normal Sodium 130 L Potassium 4.4 Chloride 98 L Carbon Dioxide 26 Anion Gap 6 BUN 17 Creatinine 0.98 Est GFR ( Amer) 96.8 Est GFR (Non-Af Amer) 80.0 BUN/Creatinine Ratio 17.3 Glucose 209 H POC Glucose (mg/dL) Calcium 8.8 Assessment: POD 2 I&D with wound vac placement right foot infection Concern for osteomyelitis Plan: NWB RLE Cont wound vac, possible change Wednesday with Dr. Perea Cont linezolid and bactrim, monitor BMP per hosp advice. Ok to stop bactrim if needed based on labs Awaiting bone cultures to R/O osteomyelitis, so far no growth CBC tomorrow am to monitor WBC Appreciate ID input, to see him 11/27
[2019-11-26] MEDS: Enoxaparin(*) 40 MG/0.4 ML SYR SUBCUT SCH (12:15)
[2019-11-26] MEDS: oxyCODONE/Acetamin 5/325 MG* TAB PO PRN (16:19)
--- NOTE | 2019-11-26 16:28 | PN ---
Subjective Date of Service: 11/26/19 Interval History: Febrile events over night. Tmax 101 at 0400 and again 102 noon today. Repeat BCx drawn. Feeling poorly with fevers/chills. Poor appetite. Some nausea and stomach discomfort but no vomiting. Headaches when febrile, no neck stiffness, no vision changes. Denies joint pains other than the midfoot and some throbbing at medial inferior arch No diarrhea. Regular BM yesterday. muscle aches. He did get a flu shot. No cough or SOB. 11/23/19 BCx NGTDx2. Wound Cx NGTD. 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 Family History: Unchanged from Admission Social History: Unchanged from Admission Past Medical History: Unchanged from Admission Objective Active Medications: Acetaminophen (Tylenol Tab*) 975 mg PO Q8HR [facility] Last Admin: 11/26/19 12:15 Dose: 975 mg Atenolol (Tenormin Tab*) 50 mg PO QAM [facility] Last Admin: 11/26/19 09:03 Dose: 50 mg Atorvastatin Calcium (Lipitor*) 40 mg PO BEDTIME [facility] Last Admin: 11/25/19 20:45 Dose: 40 mg Bisacodyl (Dulcolax Supp*) 10 mg [place] DAILY PRN PRN Reason: CONSTIPATION Dextrose (Dextrose 50% Vial 50 Ml*) 25 ml IV PUSH .FOR FS < 60 - SS PRN PRN Reason: FS < 60 Diphenhydramine HCl (Benadryl Iv*) 25 mg IV Q6H PRN PRN Reason: PRURITIS Diphenhydramine HCl (Benadryl Po*) 25 mg PO Q6H PRN PRN Reason: PRURITIS Docusate Sodium (Colace Cap*) 100 mg PO BID [facility] Last Admin: 11/26/19 09:07 Dose: Not Given Enoxaparin Sodium (Lovenox(*)) 40 mg SUBCUT Q24H [facility] Last Admin: 11/26/19 12:15 Dose: 40 mg Linezolid (Zyvox 600 Mg Ivpremix(*)) 600 mg in 300 mls @ 300 mls/hr IVPB Q12H [facility] Last Admin: 11/26/19 16:07 Dose: 200 mls/hr Lactated Ringer's (Lactated Ringers 1000 Ml Bag*) 1,000 mls @ 125 mls/hr IV PER RATE [facility] Last Admin: 11/25/19 06:21 Dose: 125 mls/hr Insulin Glargine (Lantus(*)) 80 units SUBCUT 0800 [facility] Last Admin: 11/26/19 09:04 Dose: 80 units Insulin Human Lispro (Humalog*) 25 units SUBCUT TID WITH MEALS [facility] Last Admin: 11/26/19 12:53 Dose: 25 unit Insulin Human Lispro (Humalog*) 0 units SUBCUT AC [facility]; Protocol Last Admin: 11/26/19 12:54 Dose: 3 unit Lactulose (Lactulose*) 30 ml PO BID PRN PRN Reason: CONSTIPATION Lisinopril (Prinivil Tab*) 10 mg PO DAILY [facility] Last Admin: 11/26/19 09:03 Dose: 10 mg Magnesium Hydroxide (Milk Of Magnesia Liq*) 30 ml PO BID [facility] Last Admin: 11/26/19 09:07 Dose: Not Given Magnesium Hydroxide (Milk Of Magnesia Liq*) 30 ml PO Q6H PRN PRN Reason: CONSTIPATION Morphine Sulfate (Morphine Inj (Syringe))*) 2 mg IV Q4H PRN PRN Reason: Pain - Unrelieved Multivitamins (Theragran Tab*) 1 tab PO DAILY [facility] Last Admin: 11/26/19 09:03 Dose: 1 tab Ondansetron HCl (Zofran Inj*) 4 mg IV Q6H PRN PRN Reason: NAUSEA Ondansetron HCl (Zofran Odt Tab*) 4 mg PO Q6H PRN PRN Reason: NAUSEA Oxycodone HCl (Roxycodone Tab*) 10 mg PO Q4H PRN PRN Reason: Pain - Breakthrough Oxycodone HCl (Roxycodone Tab*) 5 mg PO Q4H PRN PRN Reason: Pain - Breakthrough Last Admin: 11/26/19 09:02 Dose: 5 mg Oxycodone/Acetaminophen (Percocet 5/325 Tab*) 1 tab PO Q4H PRN PRN Reason: PAIN - MODERATE Last Admin: 11/26/19 16:19 Dose: 1 tab Trimethoprim/Sulfamethoxazole (Bactrim Ds 800/160 Tab*) 1 tab PO BID [facility] Last Admin: 11/26/19 09:03 Dose: 1 tab Vital Signs - 8 hr 11/26/19 11/26/19 11/26/19 09:02 11:05 12:03 Temperature 102 F Pulse Rate 102 Respiratory 18 18 16 Rate Blood Pressure 165/60 (mmHg) O2 Sat by Pulse 90 Oximetry 11/26/19 11/26/19 11/26/19 12:04 13:58 15:14 Temperature 101.5 F 100.2 F Pulse Rate 107 106 78 Respiratory 18 Rate Blood Pressure 122/58 (mmHg) O2 Sat by Pulse 93 95 93 Oximetry 11/26/19 11/26/19 16:16 16:19 Temperature 101 F Pulse Rate Respiratory 20 Rate Blood Pressure (mmHg) O2 Sat by Pulse Oximetry Oxygen Devices in Use Now: None Appearance: mild discomfort. Eyes: No Scleral Icterus Respiratory: - - anteriorly clear to auscultation. Abdominal: NL Sounds; No Tenderness; No Distention, No Hepatosplenomegaly Extremities: No Edema, - - right foot in ASH wrap c/d/i and wound vac with bloody drainage. SILT. Skin: - - as above. Neurological: Alert and Oriented x 3, NL Sensation Result Diagrams: 11/26/19 04:44 11/26/19 04:44 Additional Lab and Data: Laboratory Results - last 24 hr 11/25/19 11/26/19 11/26/19 17:23 04:44 04:44 WBC 5.2 RBC 3.58 L Hgb 10.9 L Hct 31 L MCV 88 MCH 30 MCHC 35 RDW 14 Plt Count 157 MPV 6.4 L Neut % (Auto) 64.7 Lymph % (Auto) 14.6 [place] % (Auto) 16.4 Eos % (Auto) 3.8 Baso % (Auto) 0.5 Absolute Neuts (auto) 3.4 Absolute Lymphs (auto) 0.8 L Absolute Monos (auto) 0.8 Absolute Eos (auto) 0.2 Absolute Basos (auto) 0.0 Absolute Nucleated RBC 0.0 Neutrophils % 66.0 Lymphocytes % 14.0 Monocytes % 16.0 Eosinophils % 4.0 Nucleated RBC % 0.0 Normal RBC Morphology Normal Sodium 130 L Potassium 4.4 Chloride 98 L Carbon Dioxide 26 Anion Gap 6 BUN 17 Creatinine 0.98 Est GFR ( Amer) 96.8 Est GFR (Non-Af Amer) 80.0 BUN/Creatinine Ratio 17.3 Glucose 209 H POC Glucose (mg/dL) 236 H Calcium 8.8 11/26/19 11/26/19 07:57 11:57 WBC RBC Hgb Hct MCV MCH MCHC RDW Plt Count MPV Neut % (Auto) Lymph % (Auto) [place] % (Auto) Eos % (Auto) Baso % (Auto) Absolute Neuts (auto) Absolute Lymphs (auto) Absolute Monos (auto) Absolute Eos (auto) Absolute Basos (auto) Absolute Nucleated RBC Neutrophils % Lymphocytes % Monocytes % Eosinophils % Nucleated RBC % Normal RBC Morphology Sodium Potassium Chloride Carbon Dioxide Anion Gap BUN Creatinine Est GFR ( Amer) Est GFR (Non-Af Amer) BUN/Creatinine Ratio Glucose POC Glucose (mg/dL) 213 H 183 H Calcium Microbiology and Other Data: Microbiology 11/23/19 12:14 Blood Venous Aerobic Blood Culture - Preliminary No Growth Day 3 11/23/19 12:14 Blood Venous Anaerobic Blood Culture - Preliminary No Growth Day 3 11/23/19 12:14 Blood Venous Aerobic Blood Culture - Preliminary No Growth Day 3 11/23/19 12:14 Blood Venous Anaerobic Blood Culture - Preliminary No Growth Day 3 11/24/19 17:29 Wound Anaerobic Culture - Preliminary No Growth Day 2 11/24/19 17:29 Wound Gram Stain - Final 11/24/19 17:29 Wound Wound Culture - Preliminary No Growth Day 2 Assess/Plan/Problems-Billing Assessment: 54yo male PMH IDDM3 and chronic LE wound who is admitted for poor wound healing and concern for infection in right mid foot wound. Hx of MRSA infection , vancomycin allergic. On linezolid + bactrim but recurrent fevers/tachycardia. - Patient Problems (1) Right foot infection Current Visit: No Status: Acute Code(s): L08.9 - LOCAL INFECTION OF THE SKIN AND SUBCUTANEOUS TISSUE, UNSP SNOMED Code(s): 448345283 Comment: - Infection of previous surgical site with poorly healing wound. - Appreciate ID input - recommendation of Linezolid. Has a history of kidney injury on vancomycin. Given recurrent fevers and tachycardia overnight and today will stop bactrim and switch to ceftriaxone 2gm q24 (after UA obtained) for better gram negative coverage. BCx repeated noon today. CXR. flu swab. - POD #2 with wound vac. plan for change tomorrow. (2) Charcot's joint of right foot Current Visit: No Status: Acute Code(s): M14.671 - CHARCOT'S JOINT, RIGHT ANKLE AND FOOT SNOMED Code(s): 013774437 Comment: - Due to DM II - Management per Orthopedics (3) DVT prophylaxis Current Visit: No Status: Acute Code(s): Z29.9 - ENCOUNTER FOR PROPHYLACTIC MEASURES, UNSPECIFIED SNOMED Code(s): 824415911 Comment: - Hold SQ heparin for surgery (4) HLD (hyperlipidemia) Current Visit: No Status: Acute Code(s): E78.5 - HYPERLIPIDEMIA, UNSPECIFIED SNOMED Code(s): 66427104 Comment: - Continue lipitor. (5) HTN (hypertension) Current Visit: No Status: Acute Code(s): I10 - ESSENTIAL (PRIMARY) HYPERTENSION SNOMED Code(s): 50690993 Comment: - Continue Atenolol - restart Lisinopril at 10mg (home is 20mg) SBP 130s. (6) Type II diabetes mellitus Current Visit: No Status: Acute Comment: - Lantus 50 -> 80U, mealtime 25/25/25 + SSI - FSBG qac 180-220s, appetite poor. (7) Full code status Current Visit: No Status: Acute Code(s): Z78.9 - OTHER SPECIFIED HEALTH STATUS SNOMED Code(s): 078945920 Status and Disposition: ortho inpatient. Medicine in consulting.
[2019-11-26] MEDS ORDERED: Ibuprofen TAB* 400 MG PO ONE (16:45)
[2019-11-26 17:08] LABS: Urine Appearance Clear; Urine Bilirubin Negative (Negative); Urine Blood Negative (Negative); Urine Color Yellow; Urine Glucose Negative (Negative); Urine Ketones Negative (Negative); Urine Nitrite Negative (Negative); Urine Protein 1+(30 mg/dL) (Negative); Urine Specific Gravity 1.021 (1.010-1.030); Urine Urobilinogen Negative (Negative)
[2019-11-26 17:12] LABS: Urine Bacteria Absent (Absent); Urine Red Blood Cell Absent (Absent); Urine White Blood Cell Absent (Absent)
[2019-11-26 17:14] LABS: Influenza A Molecular NEGATIVE (Negative); Influenza B Molecular NEGATIVE (Negative)
[2019-11-26] MEDS: cefTRIAXone(*) 2 GM in NS 0.9% 100 ML* 100 ML IVPB SCH (17:52)
[2019-11-26] MEDS: Atorvastatin* 40 MG TAB PO SCH (21:33)
[2019-11-27] MEDS ORDERED: Ibuprofen TAB* 600 MG PO ONE (00:31)
[2019-11-27] MEDS ORDERED: Ibuprofen TAB* 600 MG ONE (00:40)
[2019-11-27] MEDS: Linezolid 600 MG IVPREMIX(*) 600 MG/300 ML BAG IVPB SCH ×2 (03:47→15:47)
[2019-11-27 05:20] LABS: ABS Eosinophils 0.1 10^3/ul (0-0.6); ABS Lymphocytes 0.6 10^3/ul (1.0-4.8); ABS Monocytes 0.6 10^3/ul (0-0.8); ABS Neutrophils 3.9 10^3/ul (1.5-7.7); Eosinophil % 1.7 %; Hematocrit 32 % (42-52); Lymphocyte % 12.3 %; Mean Corpuscular HGB Conc 34 g/dL (31-36); Mean Corpuscular Hemoglobin 30 pg (27-31); Mean Corpuscular Volume 88 fL (80-94); Mean Platelet Volume 6.4 fL (7.4-10.4); Nucleated Red Blood Cells % 0.1; Platelet Count 163 10^3/uL (150-450); Red Blood Count 3.67 10^6 /uL (4.18-5.48); Red Cell Distribution Width 14 % (10-15); White Blood Count 5.2 10^3/uL (3.5-10.8)
[2019-11-27 05:39] LABS: Albumin 3.5 g/dL (3.2-5.2); BUN/Creatinine Ratio 15.4 (8-20); C Reactive Protein 145.46 mg/L (<8.01); Calcium 8.6 mg/dL (8.6-10.3); EGFR African American 74.5 (>60); EGFR Non-African American 61.6 (>60); Globulin 3.5 g/dL (2-4); Indirect Bilirubin 0.3 mg/dL (0.3-1.0); Potassium 4.9 mmol/L (3.5-5.0); Total Bilirubin 0.5 mg/dL (0.2-1.0)
[2019-11-27] MEDS: Acetaminophen TAB* 325 MG PO SCH ×3 (05:59→22:36)
[2019-11-27] MEDS: Vitamin THERAPEUTIC TAB PO SCH (08:45)
[2019-11-27] MEDS: Atenolol TAB* 50 MG PO SCH (08:45)
[2019-11-27] MEDS: Lisinopril TAB* 10 MG PO SCH (08:45)
[2019-11-27] MEDS: Insulin LISPRO* 1 UNITS UNIT SUBCUT SCH ×6 (08:46→17:58)
[2019-11-27] MEDS: Insulin GLARGINE(*) 1 UNITS UNIT SUBCUT SCH (08:46)
[2019-11-27] MEDS: Magnesium Hydroxide LIQ* 30 ML UDC PO SCH ×2 (08:48→22:37)
[2019-11-27] MEDS: Docusate CAP* 100 MG PO SCH ×2 (08:48→22:37)
--- NOTE | 2019-11-27 09:14 | PN ---
Progress Note - Progress Note Date of Service: 11/27/19 SOAP: Subjective: CC: Right foot infection HPI: Mr. 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 diff and right foot osteomyelitis; who presented to the hospital with a right foot infection. Reports fevers over the weekend after restarting on Bactrim. He reports that outpatient the fevers started 24 hours after starting Bactrim. He reports that the foot didn't look infected outpatient, no redness, warmth or swelling prior to admission. Reports fever and chills yesterday. Denies vomiting, diarrhea, constipation, joint pain , back pain, ABD pain, urinary symptoms, or respiratory symptoms. Reports poor appetite and nausea over the weekend. Objective: Vital Signs - 8 hr 11/27/19 11/27/19 02:04 03:53 Temperature 100.2 F 98.0 F Pulse Rate 83 Respiratory 18 Rate Blood Pressure 118/67 (mmHg) O2 Sat by Pulse 93 Oximetry Physical Exam: General: NAD, sitting up in bed Neurological: Alert and Oriented x4 HEENT: Moist MM, no thrush Cardiovascular: Heart rate regular Respiratory: Lung sounds clear Abdominal: Bowel sounds present; ABD soft, obese, non tender MSK: No tenderness with palpation of the right LE Skin: No rash. DSG to right LE clean, dry and intact, wound vac intact Laboratory Results - last 24 hr 11/26/19 11/26/19 11/27/19 17:00 17:08 05:05 Sodium 132 L Potassium 4.9 Chloride 99 L Carbon Dioxide 25 Anion Gap 8 BUN 19 Creatinine 1.23 H Est GFR ( Amer) 74.5 Est GFR (Non-Af Amer) 61.6 BUN/Creatinine Ratio 15.4 Glucose 223 H POC Glucose (mg/dL) 167 H Calcium 8.6 Total Bilirubin 0.50 Direct Bilirubin 0.20 H Indirect Bilirubin 0.3 AST 37 ALT 33 Alkaline Phosphatase 93 C-Reactive Protein 145.46 H Total Protein 7.0 Albumin 3.5 Globulin 3.5 Albumin/Globulin Ratio 1.0 Urine Color Yellow Urine Appearance Clear Urine pH 5.0 Ur Specific [place] 1.021 Urine Protein 1+(30 mg/dl) A Urine Ketones Negative Urine Blood Negative Urine Nitrate Negative Urine Bilirubin Negative Urine Urobilinogen Negative Ur Leukocyte Esterase Negative Urine WBC (Auto) Absent Urine RBC (Auto) Absent Urine Bacteria Absent Urine Glucose Negative Urine Ascorbic Acid * A 11/27/19 05:05 WBC 5.2 RBC 3.67 L Hgb 11.0 L Hct 32 L MCV 88 MCH 30 MCHC 34 RDW 14 Plt Count 163 MPV 6.4 L Neut % (Auto) 74.2 Lymph % (Auto) 12.3 [place] % (Auto) 11.4 Eos % (Auto) 1.7 Baso % (Auto) 0.4 Absolute Neuts (auto) 3.9 Absolute Lymphs (auto) 0.6 L Absolute Monos (auto) 0.6 Absolute Eos (auto) 0.1 Absolute Basos (auto) 0.0 Absolute Nucleated RBC 0.0 Nucleated RBC % 0.1 Microbiology 11/23/19 12:14 Aerobic Blood Culture - Preliminary Blood Venous No Growth Day 3 Anaerobic Blood Culture - Preliminary No Growth Day 3 11/23/19 12:14 Aerobic Blood Culture - Preliminary Blood Venous No Growth Day 3 Anaerobic Blood Culture - Preliminary No Growth Day 3 11/24/19 17:29 Anaerobic Culture - Preliminary Wound No Growth Day 2 Gram Stain - Final Wound Culture - Preliminary No Growth Day 2 Assessment: 1. Right foot infection. S/P I+D, POD # 3. Blood cultures with no growth on day 3. Wound culture with no growth on day 2. Febrile over the weekend, last fever yesterday. No leukocytosis. Wound vac due to be changed today. 2. Fevers. Differential dx: Worsening infection, drug reaction, UTI, respiratory illness. No S/S urinary or respiratory illness. No leukocytosis. Patient reports that fevers started 24 hours after starting Bactrim outpatient and again 24 hours after starting Bactrim inpatient. Blood cultures with no growth on day 3. Suspect fevers may be secondary to a drug reaction to Bactrim. Bactrim has been stopped. 3. DM2. 4. Morbid obesity. BMI 38.5 Plan: Continue Linezolid. Will give further recommendation after bone biopsy results return.
[2019-11-27] MEDS ORDERED: Ibuprofen TAB* 400 MG PO ONE (12:35)
[2019-11-27] MEDS ORDERED: Ibuprofen TAB* 400 MG ONE (12:42)
[2019-11-27] MEDS: Enoxaparin(*) 40 MG/0.4 ML SYR SUBCUT SCH (12:44)
--- NOTE | 2019-11-27 14:18 | PN ---
Subjective Date of Service: 11/27/19 Interval History: Continued fevers intermittently, recalls that had fever within 24 hours of starting bactrim as an outpatient. some nausea no vomiting. was hungry and ate for breakfast. 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 [place] no cough, SOB, dysuria, diarrhea. abdominal discomfort improved compared to yesterday. Family History: Unchanged from Admission Social History: Unchanged from Admission Past Medical History: Unchanged from Admission Objective Active Medications: Acetaminophen (Tylenol Tab*) 975 mg PO Q8HR [facility] Last Admin: 11/27/19 12:45 Dose: 975 mg Atenolol (Tenormin Tab*) 50 mg PO QAM [facility] Last Admin: 11/27/19 08:45 Dose: 50 mg Atorvastatin Calcium (Lipitor*) 40 mg PO BEDTIME [facility] Last Admin: 11/26/19 21:33 Dose: 40 mg Bisacodyl (Dulcolax Supp*) 10 mg [place] DAILY PRN PRN Reason: CONSTIPATION Dextrose (Dextrose 50% Vial 50 Ml*) 25 ml IV PUSH .FOR FS < 60 - SS PRN PRN Reason: FS < 60 Diphenhydramine HCl (Benadryl Iv*) 25 mg IV Q6H PRN PRN Reason: PRURITIS Diphenhydramine HCl (Benadryl Po*) 25 mg PO Q6H PRN PRN Reason: PRURITIS Docusate Sodium (Colace Cap*) 100 mg PO BID [facility] Last Admin: 11/27/19 08:48 Dose: Not Given Enoxaparin Sodium (Lovenox(*)) 40 mg SUBCUT Q24H [facility] Last Admin: 11/27/19 12:44 Dose: 40 mg Linezolid (Zyvox 600 Mg Ivpremix(*)) 600 mg in 300 mls @ 300 mls/hr IVPB Q12H [facility] Last Admin: 11/27/19 03:47 Dose: 300 mls/hr Lactated Ringer's (Lactated Ringers 1000 Ml Bag*) 1,000 mls @ 125 mls/hr IV PER RATE [facility] Last Admin: 11/25/19 06:21 Dose: 125 mls/hr Ceftriaxone Sodium 2 gm/ (Sodium Chloride) 100 mls @ 200 mls/hr IVPB Q24H [facility] Last Admin: 11/26/19 17:52 Dose: 200 mls/hr Insulin Glargine (Lantus(*)) 80 units SUBCUT 0800 [facility] Last Admin: 11/27/19 08:46 Dose: 80 units Insulin Human Lispro (Humalog*) 25 units SUBCUT TID WITH MEALS [facility] Last Admin: 11/27/19 12:45 Dose: 25 units Insulin Human Lispro (Humalog*) 0 units SUBCUT AC [facility]; Protocol Last Admin: 11/27/19 12:45 Dose: 3 unit Lactulose (Lactulose*) 30 ml PO BID PRN PRN Reason: CONSTIPATION Lisinopril (Prinivil Tab*) 10 mg PO DAILY [facility] Last Admin: 11/27/19 08:45 Dose: 10 mg Magnesium Hydroxide (Milk Of Magnesia Liq*) 30 ml PO BID [facility] Last Admin: 11/27/19 08:48 Dose: Not Given Magnesium Hydroxide (Milk Of Magnesia Liq*) 30 ml PO Q6H PRN PRN Reason: CONSTIPATION Morphine Sulfate (Morphine Inj (Syringe))*) 2 mg IV Q4H PRN PRN Reason: Pain - Unrelieved Multivitamins (Theragran Tab*) 1 tab PO DAILY [facility] Last Admin: 11/27/19 08:45 Dose: 1 tab Ondansetron HCl (Zofran Inj*) 4 mg IV Q6H PRN PRN Reason: NAUSEA Last Admin: 11/27/19 00:42 Dose: 4 mg Ondansetron HCl (Zofran Odt Tab*) 4 mg PO Q6H PRN PRN Reason: NAUSEA Last Admin: 11/27/19 12:50 Dose: 4 mg Oxycodone HCl (Roxycodone Tab*) 10 mg PO Q4H PRN PRN Reason: Pain - Breakthrough Oxycodone HCl (Roxycodone Tab*) 5 mg PO Q4H PRN PRN Reason: Pain - Breakthrough Last Admin: 11/26/19 09:02 Dose: 5 mg Oxycodone/Acetaminophen (Percocet 5/325 Tab*) 1 tab PO Q4H PRN PRN Reason: PAIN - MODERATE Last Admin: 11/26/19 16:19 Dose: 1 tab Vital Signs - 8 hr 11/27/19 11/27/19 11/27/19 08:57 09:12 11:57 Temperature 98.3 F 99.8 F Pulse Rate 98 95 Respiratory 18 18 18 Rate Blood Pressure 132/76 135/71 (mmHg) O2 Sat by Pulse 94 94 Oximetry 11/27/19 12:30 Temperature 101.4 F Pulse Rate Respiratory Rate Blood Pressure (mmHg) O2 Sat by Pulse Oximetry Oxygen Devices in Use Now: None Appearance: NAD Eyes: No Scleral Icterus Respiratory: Symmetrical Chest Expansion and Respiratory Effort, Clear to Auscultation Cardiovascular: NL Sounds; No Murmurs; No JVD, RRR Abdominal: - - soft, nontender, distended/obese Extremities: No Edema Skin: No Rash or Ulcers, - - picture examined - amita shaped wound on right midfoot. wound vac with bloody drainage. Neurological: Alert and Oriented x 3 Nutrition: Taking PO's Result Diagrams: 11/27/19 05:05 11/27/19 05:05 Additional Lab and Data: Laboratory Results - last 24 hr 11/26/19 11/27/19 11/27/19 04:44 05:05 05:05 WBC 5.2 RBC 3.67 L Hgb 11.0 L Hct 32 L MCV 88 MCH 30 MCHC 34 RDW 14 Plt Count 163 MPV 6.4 L Neut % (Auto) 74.2 Lymph % (Auto) 12.3 [place] % (Auto) 11.4 Eos % (Auto) 1.7 Baso % (Auto) 0.4 Absolute Neuts (auto) 3.9 Absolute Lymphs (auto) 0.6 L Absolute Monos (auto) 0.6 Absolute Eos (auto) 0.1 Absolute Basos (auto) 0.0 Absolute Nucleated RBC 0.0 Nucleated RBC % 0.1 Hem Pathologist Commnt Sodium 132 L Potassium 4.9 Chloride 99 L Carbon Dioxide 25 Anion Gap 8 BUN 19 Creatinine 1.23 H Est GFR ( Amer) 74.5 Est GFR (Non-Af Amer) 61.6 BUN/Creatinine Ratio 15.4 Glucose 223 H POC Glucose (mg/dL) Calcium 8.6 Total Bilirubin 0.50 Direct Bilirubin 0.20 H Indirect Bilirubin 0.3 AST 37 ALT 33 Alkaline Phosphatase 93 C-Reactive Protein 145.46 H Total Protein 7.0 Albumin 3.5 Globulin 3.5 Albumin/Globulin Ratio 1.0 11/27/19 12:29 WBC RBC Hgb Hct MCV MCH MCHC RDW Plt Count MPV Neut % (Auto) Lymph % (Auto) [place] % (Auto) Eos % (Auto) Baso % (Auto) Absolute Neuts (auto) Absolute Lymphs (auto) Absolute Monos (auto) Absolute Eos (auto) Absolute Basos (auto) Absolute Nucleated RBC Nucleated RBC % Hem Pathologist Commnt Sodium Potassium Chloride Carbon Dioxide Anion Gap BUN Creatinine Est GFR ( Amer) Est GFR (Non-Af Amer) BUN/Creatinine Ratio Glucose POC Glucose (mg/dL) 178 H Calcium Total Bilirubin Direct Bilirubin Indirect Bilirubin AST ALT Alkaline Phosphatase C-Reactive Protein Total Protein Albumin Globulin Albumin/Globulin Ratio Microbiology and Other Data: Microbiology 11/26/19 13:30 Blood Venous Aerobic Blood Culture - Preliminary No Growth Day 1 11/26/19 13:30 Blood Venous Anaerobic Blood Culture - Preliminary No Growth Day 1 11/26/19 13:30 Blood Venous Aerobic Blood Culture - Preliminary No Growth Day 1 11/26/19 13:30 Blood Venous Anaerobic Blood Culture - Preliminary No Growth Day 1 11/23/19 12:14 Blood Venous Aerobic Blood Culture - Preliminary No Growth Day 4 11/23/19 12:14 Blood Venous Anaerobic Blood Culture - Preliminary No Growth Day 4 11/23/19 12:14 Blood Venous Aerobic Blood Culture - Preliminary No Growth Day 4 11/23/19 12:14 Blood Venous Anaerobic Blood Culture - Preliminary No Growth Day 4 11/24/19 17:29 Wound Anaerobic Culture - Preliminary No Growth Day 3 11/24/19 17:29 Wound Gram Stain - Final 11/24/19 17:29 Wound Wound Culture - Preliminary No Growth Day 3 Assess/Plan/Problems-Billing Assessment: 54yo male PMH IDDM3 and chronic LE wound who is admitted for poor wound healing and concern for infection in right mid foot wound. Hx of MRSA infection , vancomycin allergic. On linezolid + cftx currently. Concern for drug fever from the bactrim (had started also as an outpatient. - Patient Problems (1) Right foot infection Current Visit: No Status: Acute Code(s): L08.9 - LOCAL INFECTION OF THE SKIN AND SUBCUTANEOUS TISSUE, UNSP SNOMED Code(s): 397895443 Comment: - Infection of previous surgical site with poorly healing wound. - Appreciate ID recs. Concern is for drug fever from the bactrim which has now been stopped. Will continue Linezolid and cftx for now. Hx of kidney injury on vancomycin. All BCxs have been negative. Still waiting on bone biopsy culture. No other e/o of localizing infection. - POD #2 with wound vac. plan for change tomorrow. (2) Charcot's joint of right foot Current Visit: No Status: Acute Code(s): M14.671 - CHARCOT'S JOINT, RIGHT ANKLE AND FOOT SNOMED Code(s): 194725457 Comment: - Due to DM II - Management per Orthopedics (3) DVT prophylaxis Current Visit: No Status: Acute Code(s): Z29.9 - ENCOUNTER FOR PROPHYLACTIC MEASURES, UNSPECIFIED SNOMED Code(s): 216405096 Comment: - lovenox (4) HLD (hyperlipidemia) Current Visit: No Status: Acute Code(s): E78.5 - HYPERLIPIDEMIA, UNSPECIFIED SNOMED Code(s): 04572929 Comment: - Continue lipitor. (5) HTN (hypertension) Current Visit: No Status: Acute Code(s): I10 - ESSENTIAL (PRIMARY) HYPERTENSION SNOMED Code(s): 82721342 Comment: - Continue Atenolol - continue Lisinopril at 10mg (home is 20mg) SBP 110-120s. (6) Type II diabetes mellitus Current Visit: No Status: Acute Comment: - Lantus 80-> 90U, mealtime 25/25/25 + SSI - FSBG qac 180-220s, appetite poor. (7) Full code status Current Visit: No Status: Acute Code(s): Z78.9 - OTHER SPECIFIED HEALTH STATUS SNOMED Code(s): 355248014 Status and Disposition: ortho inpatient. Medicine in consulting.
--- NOTE | 2019-11-27 15:39 | PN ---
PROGRESS NOTE: DATE OF SERVICE: 11/27/19 LOCATION: Eliazar is in room 334. INTERVAL HISTORY: He has been having fevers and chills off and on. We have been following his cultures closely. There is no growth so far. Bone pathology pending. Today, at bedside, we changed his VAC dressing and the foot is nonerythematous, non-swollen. No significant discharge, nothing foul- smelling. IMPRESSION AND PLAN: If he has ongoing bone infection, it is quite quiet and the foot itself looks benign. A new VAC dressing is applied. It is possible he is having a drug fever. The plan would be to check cultures again tomorrow and then to begin weaning off the antibiotics to see if that is part of the cause. [id number]/[facility] #: [id number] ANNE
[2019-11-27] MEDS: cefTRIAXone(*) 2 GM in NS 0.9% 100 ML* 100 ML IVPB SCH (17:23)
[2019-11-27] MEDS: Atorvastatin* 40 MG TAB PO SCH (22:36)
[2019-11-27] MEDS: oxyCODONE TAB* 5 MG TAB PO PRN (22:37)
[2019-11-28] MEDS: oxyCODONE/Acetamin 5/325 MG* TAB PO PRN (04:04)
[2019-11-28] MEDS: Linezolid 600 MG IVPREMIX(*) 600 MG/300 ML BAG IVPB SCH ×2 (04:10→15:29)
[2019-11-28 05:15] LABS: Hematocrit 29 % (42-52); Mean Corpuscular HGB Conc 35 g/dL (31-36); Mean Corpuscular Hemoglobin 31 pg (27-31); Mean Corpuscular Volume 88 fL (80-94); Mean Platelet Volume 6.4 fL (7.4-10.4); Platelet Count 169 10^3/uL (150-450); Red Blood Count 3.26 10^6 /uL (4.18-5.48); Red Cell Distribution Width 14 % (10-15); White Blood Count 5.6 10^3/uL (3.5-10.8)
[2019-11-28 05:32] LABS: BUN/Creatinine Ratio 24.1 (8-20); Calcium 8.1 mg/dL (8.6-10.3); EGFR African American 65.8 (>60); EGFR Non-African American 54.4 (>60); Potassium 4.3 mmol/L (3.5-5.0)
[2019-11-28 05:57] LABS: ABS Eosinophils 0.3 10^3/ul (0-0.6); ABS Lymphocytes 1.6 10^3/ul (1.0-4.8); ABS Monocytes 0.8 10^3/ul (0-0.8); ABS Neutrophils 2.9 10^3/ul (1.5-7.7); Eosinophil % 4.7 %; Lymphocyte % 28.1 %
[2019-11-28] MEDS: Acetaminophen TAB* 325 MG PO SCH ×3 (06:02→21:13)
[2019-11-28] MEDS ORDERED: Insulin GLARGINE(*) 1 UNITS UNIT SUBCUT SCH (08:00)
--- NOTE | 2019-11-28 08:42 | PN ---
Progress Note - Progress Note Date of Service: 11/28/19 SOAP: Subjective: CC: Right foot infection HPI: Mr. 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 diff and right foot osteomyelitis; who presented to the hospital with a right foot infection. Reports fever yesterday afternoon, denies fever since also with chills and nausea. Denies chills, vomiting, or diarrhea. He continues to have intermittent nausea, last episode was with fever yesterday afternoon. Reports some discomfort in the right foot with ambulation. Objective: Vital Signs 11/28/19 11/28/19 07:16 07:29 Temperature 97.6 F Pulse Rate 85 Respiratory 18 Rate Blood Pressure 134/88 (mmHg) O2 Sat by Pulse 93 93 Oximetry Physical Exam: General: NAD, laying in bed Neurological: Alert and Oriented x 4 HEENT: Moist MM, no thrush Cardiovascular: Heart rate regular Respiratory: Lung sounds clear Abdominal: Bowel sounds present; ABD soft, non tender and large MSK: Full ROM of the right ankle, no tenderness with palpation of the foot Skin: Wound vac in place to the dorsal aspect of the right foot, there is slight erythema surrounding the wound Laboratory Results - last 24 hr 11/28/19 11/28/19 05:05 05:05 WBC 5.6 RBC 3.26 L Hgb 10.0 L Hct 29 L MCV 88 MCH 31 MCHC 35 RDW 14 Plt Count 169 MPV 6.4 L Neut % (Auto) 52.5 Lymph % (Auto) 28.1 [place] % (Auto) 14.2 Eos % (Auto) 4.7 Baso % (Auto) 0.5 Absolute Neuts (auto) 2.9 Absolute Lymphs (auto) 1.6 Absolute Monos (auto) 0.8 Absolute Eos (auto) 0.3 Absolute Basos (auto) 0.0 Absolute Nucleated RBC 0.0 Nucleated RBC % 0.0 Hem Pathologist Commnt Sodium 133 L Potassium 4.3 Chloride 100 L Carbon Dioxide 26 Anion Gap 7 BUN 33 H Creatinine 1.37 H Est GFR ( Amer) 65.8 Est GFR (Non-Af Amer) 54.4 BUN/Creatinine Ratio 24.1 H Glucose 259 H POC Glucose (mg/dL) Calcium 8.1 L Microbiology 11/26/19 13:30 Aerobic Blood Culture - Preliminary Blood Venous No Growth Day 1 Anaerobic Blood Culture - Preliminary No Growth Day 1 11/26/19 13:30 Aerobic Blood Culture - Preliminary Blood Venous No Growth Day 1 Anaerobic Blood Culture - Preliminary No Growth Day 1 11/23/19 12:14 Aerobic Blood Culture - Preliminary Blood Venous No Growth Day 4 Anaerobic Blood Culture - Preliminary No Growth Day 4 11/23/19 12:14 Aerobic Blood Culture - Preliminary Blood Venous No Growth Day 4 Anaerobic Blood Culture - Preliminary No Growth Day 4 11/24/19 17:29 Anaerobic Culture - Preliminary Wound No Growth Day 3 Gram Stain - Final Wound Culture - Preliminary No Growth Day 3 Assessment: 1. Right foot infection. S/P I+D, POD # 4. Blood cultures with no growth on day 4. Wound culture with no growth on day 3. Febrile over the weekend, last fever yesterday afternoon of 101.4. No leukocytosis. CRP remains elevated. Bone bx results pending. 2. Fevers. Differential dx: Worsening infection, drug reaction, UTI, respiratory illness. No S/S urinary or respiratory illness. No leukocytosis. Patient reports that fevers started 24 hours after starting Bactrim outpatient and again 24 hours after starting Bactrim inpatient. Blood cultures with no growth on day 3. Suspect fevers may be secondary to a drug reaction to Bactrim. Bactrim has been stopped. 3. DM2. 4. Morbid obesity. BMI 38.5 Plan: Continue Linezolid and ceftriaxone. Will give further recommendation after bone biopsy results return.
[2019-11-28] MEDS: Lisinopril TAB* 10 MG PO SCH (09:42)
[2019-11-28] MEDS: Insulin LISPRO* 1 UNITS UNIT SUBCUT SCH ×6 (09:42→17:44)
[2019-11-28] MEDS: Vitamin THERAPEUTIC TAB PO SCH (09:42)
[2019-11-28] MEDS: Atenolol TAB* 50 MG PO SCH (09:43)
[2019-11-28] MEDS: Magnesium Hydroxide LIQ* 30 ML UDC PO SCH ×2 (09:43→21:23)
[2019-11-28] MEDS: Docusate CAP* 100 MG PO SCH ×2 (09:43→21:23)
--- NOTE | 2019-11-28 10:01 | PN ---
Progress Note - Progress Note Date of Service: 11/28/19 SOAP: Subjective: []Pt seen and examined at bedside. He feels well today without complaint of fever or chills since yesterday midafternoon. Denies CP, SOB, dizziness, nausea , abd pain, back or neck pain, dysuria. No Pain of Right foot and no problems with wound vac. Has Full body bone scan this morning, results not yet available. Objective: []Gen: NAD, Nontoxic appearing RLE: Vac suctioning well, heather removed, skin surrounding vac intact without erythema, edema, discharge or maceration. No foul odor. Assessment: []SP I&D with wound vac placement right foot infection. Awaiting bone pathology. Cultures with no growth to date. Plan: [] NWB RLE Cont wound vac, next change due 11/30 Cont linezolid and ceftriaxone, abx per ID Awaiting bone cultures to R/O osteomyelitis, so far no growth Vital Signs Temp 97.6 F 11/28/19 07:16 Pulse 85 11/28/19 07:16 Resp 18 11/28/19 07:16 BP 134/88 11/28/19 07:16 Pulse Ox 93 11/28/19 07:29 Intake & Output 11/27/19 11/28/19 11/28/19 18:59 06:59 18:59 Intake Total 2250 Output Total 250 500 Balance 2000 -500 Weight 300 lb Intake: IV Fluids 50 NS (0.9%) 50 IVPB 400 ABX - CEFTRIAXONE 100 ABX - LINEZOLID 300 Oral 1800 Output: Urine 250 500 Other: Estimated Void Large Date of Last Bowel 11/27/19 Movement # Bowel Movements 1 Estimated Stool Amount Large Laboratory Last Values WBC 5.6 10^3/uL (3.5-10.8) 11/28/19 05:05 RBC 3.26 10^6 /uL (4.18-5.48) L 11/28/19 05:05 Hgb 10.0 g/dL (14.0-18.0) L 11/28/19 05:05 Hct 29 % (42-52) L 11/28/19 05:05 MCV 88 fL (80-94) 11/28/19 05:05 MCH 31 pg (27-31) 11/28/19 05:05 MCHC 35 g/dL (31-36) 11/28/19 05:05 RDW 14 % (10-15) 11/28/19 05:05 Plt Count 169 10^3/uL (150-450) 11/28/19 05:05 MPV 6.4 fL (7.4-10.4) L 11/28/19 05:05 Neut % (Auto) 52.5 % 11/28/19 05:05 Lymph % (Auto) 28.1 % 11/28/19 05:05 [place] % (Auto) 14.2 % 11/28/19 05:05 Eos % (Auto) 4.7 % 11/28/19 05:05 Baso % (Auto) 0.5 % 11/28/19 05:05 Absolute Neuts (auto) 2.9 10^3/ul (1.5-7.7) 11/28/19 05:05 Absolute Lymphs (auto) 1.6 10^3/ul (1.0-4.8) 11/28/19 05:05 Absolute Monos (auto) 0.8 10^3/ul (0-0.8) 11/28/19 05:05 Absolute Eos (auto) 0.3 10^3/ul (0-0.6) 11/28/19 05:05 Absolute Basos (auto) 0.0 10^3/ul (0-0.2) 11/28/19 05:05 Absolute Nucleated RBC 0.0 10^3/ul 11/28/19 05:05 Neutrophils % 66.0 % 11/26/19 04:44 Lymphocytes % 14.0 % 11/26/19 04:44 Monocytes % 16.0 % 11/26/19 04:44 Eosinophils % 4.0 % 11/26/19 04:44 Nucleated RBC % 0.0 11/28/19 05:05 Normal RBC Morphology Normal (Normal) 11/26/19 04:44 ESR 34 mm/Hr (0-19) H 11/23/19 12:14 Hem Pathologist Commnt 11/26/19 04:44 INR (Anticoag Therapy) 1.15 (0.82-1.09) H 11/23/19 12:14 APTT 33.9 seconds (26.0-38.0) 11/23/19 17:28 Sodium 133 mmol/L (135-145) L 11/28/19 05:05 Potassium 4.3 mmol/L (3.5-5.0) 11/28/19 05:05 Chloride 100 mmol/L (101-111) L 11/28/19 05:05 Carbon Dioxide 26 mmol/L (22-32) 11/28/19 05:05 Anion Gap 7 mmol/L (2-11) 11/28/19 05:05 BUN 33 mg/dL (6-24) H 11/28/19 05:05 Creatinine 1.37 mg/dL (0.67-1.17) H 11/28/19 05:05 Est GFR ( Amer) 65.8 (>60) 11/28/19 05:05 Est GFR (Non-Af Amer) 54.4 (>60) 11/28/19 05:05 BUN/Creatinine Ratio 24.1 (8-20) H 11/28/19 05:05 Glucose 259 mg/dL (70-100) H 11/28/19 05:05 POC Glucose (mg/dL) 199 mg/dL (70-100) H 11/27/19 17:29 Hemoglobin A1c 7.6 % (4.0-5.6) H 11/24/19 05:04 Lactic Acid 1.5 mmol/L (0.5-2.0) 11/23/19 12:15 Calcium 8.1 mg/dL (8.6-10.3) L 11/28/19 05:05 Total Bilirubin 0.50 mg/dL (0.2-1.0) 11/27/19 05:05 Direct Bilirubin 0.20 mg/dL (0.03-0.18) H 11/27/19 05:05 Indirect Bilirubin 0.3 mg/dL (0.3-1.0) 11/27/19 05:05 AST 37 U/L (13-39) 11/27/19 05:05 ALT 33 U/L (7-52) 11/27/19 05:05 Alkaline Phosphatase 93 U/L (34-104) 11/27/19 05:05 C-Reactive Protein 145.46 mg/L (<8.01) H 11/27/19 05:05 Total Protein 7.0 g/dL (6.4-8.9) 11/27/19 05:05 Albumin 3.5 g/dL (3.2-5.2) 11/27/19 05:05 Globulin 3.5 g/dL (2-4) 11/27/19 05:05 Albumin/Globulin Ratio 1.0 (1-3) 11/27/19 05:05 Urine Color Yellow 11/26/19 17:00 Urine Appearance Clear 11/26/19 17:00 Urine pH 5.0 (5-9) 11/26/19 17:00 Ur Specific [place] 1.021 (1.010-1.030) 11/26/19 17:00 Urine Protein 1+(30 mg/dl) (Negative) A 11/26/19 17:00 Urine Ketones Negative (Negative) 11/26/19 17:00 Urine Blood Negative (Negative) 11/26/19 17:00 Urine Nitrate Negative (Negative) 11/26/19 17:00 Urine Bilirubin Negative (Negative) 11/26/19 17:00 Urine Urobilinogen Negative (Negative) 11/26/19 17:00 Ur Leukocyte Esterase Negative (Negative) 11/26/19 17:00 Urine WBC (Auto) Absent (Absent) 11/26/19 17:00 Urine RBC (Auto) Absent (Absent) 11/26/19 17:00 Urine Bacteria Absent (Absent) 11/26/19 17:00 Urine Glucose Negative (Negative) 11/26/19 17:00 Urine Ascorbic Acid * (Negative) A 11/26/19 17:00 Influenza A (Rapid) Negative (Negative) 11/26/19 16:45 Influenza B (Rapid) Negative (Negative) 11/26/19 16:45
[2019-11-28] MEDS: Enoxaparin(*) 40 MG/0.4 ML SYR SUBCUT SCH (12:32)
--- NOTE | 2019-11-28 15:15 | PN ---
Subjective Date of Service: 11/28/19 Interval History: no fevers since yesterday afternoon, no acute events overnight. feeling much better. appetite improved with large breakfast and higher blood glucose, last 303. No other complaints s/p whole body nuclear medicine bone scan. HELP DESK COORDINATOR up to 1.37 has previously outfitted his apartment with guard rails for his nonweight bearing on right status. Family History: Unchanged from Admission Social History: Unchanged from Admission Past Medical History: Unchanged from Admission Objective Active Medications: Acetaminophen (Tylenol Tab*) 975 mg PO Q8HR [facility] Last Admin: 11/28/19 13:48 Dose: 975 mg Amlodipine Besylate (Norvasc Tab*) 5 mg PO DAILY [facility] Atenolol (Tenormin Tab*) 50 mg PO QAM [facility] Last Admin: 11/28/19 09:43 Dose: 50 mg Atorvastatin Calcium (Lipitor*) 40 mg PO BEDTIME [facility] Last Admin: 11/27/19 22:36 Dose: 40 mg Bisacodyl (Dulcolax Supp*) 10 mg TN DAILY PRN PRN Reason: CONSTIPATION Dextrose (Dextrose 50% Vial 50 Ml*) 25 ml IV PUSH .FOR FS < 60 - SS PRN PRN Reason: FS < 60 Diphenhydramine HCl (Benadryl Iv*) 25 mg IV Q6H PRN PRN Reason: PRURITIS Diphenhydramine HCl (Benadryl Po*) 25 mg PO Q6H PRN PRN Reason: PRURITIS Docusate Sodium (Colace Cap*) 100 mg PO BID [facility] Last Admin: 11/28/19 09:43 Dose: Not Given Enoxaparin Sodium (Lovenox(*)) 40 mg SUBCUT Q24H [facility] Last Admin: 11/28/19 12:32 Dose: 40 mg Linezolid (Zyvox 600 Mg Ivpremix(*)) 600 mg in 300 mls @ 300 mls/hr IVPB Q12H [facility] Last Admin: 11/28/19 04:10 Dose: 300 mls/hr Lactated Ringer's (Lactated Ringers 1000 Ml Bag*) 1,000 mls @ 125 mls/hr IV PER RATE [facility] Last Admin: 11/25/19 06:21 Dose: 125 mls/hr Ceftriaxone Sodium 2 gm/ (Sodium Chloride) 100 mls @ 200 mls/hr IVPB Q24H [facility] Last Admin: 11/27/19 17:23 Dose: 200 mls/hr Insulin Glargine (Lantus(*)) 100 units SUBCUT DAILY@0800 [facility] Insulin Human Lispro (Humalog*) 0 units SUBCUT AC [facility]; Protocol Last Admin: 11/28/19 12:33 Dose: 12 unit Insulin Human Lispro (Humalog*) 30 units SUBCUT TID WITH MEALS [facility] Lactulose (Lactulose*) 30 ml PO BID PRN PRN Reason: CONSTIPATION Lisinopril (Prinivil Tab*) 10 mg PO DAILY [facility] Last Admin: 11/28/19 09:42 Dose: 10 mg Magnesium Hydroxide (Milk Of Magnesia Liq*) 30 ml PO BID [facility] Last Admin: 11/28/19 09:43 Dose: Not Given Magnesium Hydroxide (Milk Of Magnesia Liq*) 30 ml PO Q6H PRN PRN Reason: CONSTIPATION Morphine Sulfate (Morphine Inj (Syringe))*) 2 mg IV Q4H PRN PRN Reason: Pain - Unrelieved Multivitamins (Theragran Tab*) 1 tab PO DAILY [facility] Last Admin: 11/28/19 09:42 Dose: 1 tab Ondansetron HCl (Zofran Inj*) 4 mg IV Q6H PRN PRN Reason: NAUSEA Last Admin: 11/27/19 00:42 Dose: 4 mg Ondansetron HCl (Zofran Odt Tab*) 4 mg PO Q6H PRN PRN Reason: NAUSEA Last Admin: 11/27/19 12:50 Dose: 4 mg Oxycodone HCl (Roxycodone Tab*) 10 mg PO Q4H PRN PRN Reason: Pain - Breakthrough Last Admin: 11/27/19 22:37 Dose: 10 mg Oxycodone HCl (Roxycodone Tab*) 5 mg PO Q4H PRN PRN Reason: Pain - Breakthrough Last Admin: 11/26/19 09:02 Dose: 5 mg Oxycodone/Acetaminophen (Percocet 5/325 Tab*) 1 tab PO Q4H PRN PRN Reason: PAIN - MODERATE Last Admin: 11/28/19 04:04 Dose: 1 tab Vital Signs - 8 hr 11/28/19 11/28/19 11/28/19 07:16 07:29 08:00 Temperature 97.6 F Pulse Rate 85 Respiratory 18 18 Rate Blood Pressure 134/88 (mmHg) O2 Sat by Pulse 93 93 Oximetry 11/28/19 11:05 Temperature 97.8 F Pulse Rate 83 Respiratory 16 Rate Blood Pressure 160/75 (mmHg) O2 Sat by Pulse 98 Oximetry Oxygen Devices in Use Now: None Appearance: NAD, in better spirits. Eyes: No Scleral Icterus Ears/Nose/Mouth/Throat: NL Teeth, Lips, Gums Respiratory: - - anteriorly CTAB Cardiovascular: NL Sounds; No Murmurs; No JVD Abdominal: - - soft, nontender, nondistended Extremities: No Edema, - - wound vac with bloody drainage to right mid foot, distal SILT Neurological: Alert and Oriented x 3 Nutrition: Taking PO's Result Diagrams: 11/28/19 05:05 11/28/19 05:05 Additional Lab and Data: Laboratory Results - last 24 hr 11/27/19 11/28/19 11/28/19 17:29 05:05 05:05 WBC 5.6 RBC 3.26 L Hgb 10.0 L Hct 29 L MCV 88 MCH 31 MCHC 35 RDW 14 Plt Count 169 MPV 6.4 L Neut % (Auto) 52.5 Lymph % (Auto) 28.1 Day % (Auto) 14.2 Eos % (Auto) 4.7 Baso % (Auto) 0.5 Absolute Neuts (auto) 2.9 Absolute Lymphs (auto) 1.6 Absolute Monos (auto) 0.8 Absolute Eos (auto) 0.3 Absolute Basos (auto) 0.0 Absolute Nucleated RBC 0.0 Nucleated RBC % 0.0 Hem Pathologist Commnt Sodium 133 L Potassium 4.3 Chloride 100 L Carbon Dioxide 26 Anion Gap 7 BUN 33 H Creatinine 1.37 H Est GFR ( Amer) 65.8 Est GFR (Non-Af Amer) 54.4 BUN/Creatinine Ratio 24.1 H Glucose 259 H POC Glucose (mg/dL) 199 H Calcium 8.1 L 11/28/19 11/28/19 07:15 12:16 WBC RBC Hgb Hct MCV MCH MCHC RDW Plt Count MPV Neut % (Auto) Lymph % (Auto) Day % (Auto) Eos % (Auto) Baso % (Auto) Absolute Neuts (auto) Absolute Lymphs (auto) Absolute Monos (auto) Absolute Eos (auto) Absolute Basos (auto) Absolute Nucleated RBC Nucleated RBC % Hem Pathologist Commnt Sodium Potassium Chloride Carbon Dioxide Anion Gap BUN Creatinine Est GFR ( Amer) Est GFR (Non-Af Amer) BUN/Creatinine Ratio Glucose POC Glucose (mg/dL) 253 H 303 H Calcium Microbiology and Other Data: Microbiology 11/26/19 13:30 Blood Venous Aerobic Blood Culture - Preliminary No Growth Day 2 11/26/19 13:30 Blood Venous Anaerobic Blood Culture - Preliminary No Growth Day 2 11/26/19 13:30 Blood Venous Aerobic Blood Culture - Preliminary No Growth Day 2 11/26/19 13:30 Blood Venous Anaerobic Blood Culture - Preliminary No Growth Day 2 11/23/19 12:14 Blood Venous Aerobic Blood Culture - Final No Growth Day 5 11/23/19 12:14 Blood Venous Anaerobic Blood Culture - Final No Growth Day 5 11/23/19 12:14 Blood Venous Aerobic Blood Culture - Final No Growth Day 5 11/23/19 12:14 Blood Venous Anaerobic Blood Culture - Final No Growth Day 5 11/24/19 17:29 Wound Anaerobic Culture - Final No Growth Day 4 11/24/19 17:29 Wound Gram Stain - Final 11/24/19 17:29 Wound Wound Culture - Final No Growth Day 4 Assess/Plan/Problems-Billing Assessment: 54yo male PMH IDDM3 and chronic LE wound who is admitted for poor wound healing and concern for infection in right mid foot wound. Hx of MRSA infection , vancomycin allergic. On linezolid + cftx currently. Concern for drug fever from the bactrim (had started also as an outpatient). - Patient Problems (1) Right foot infection Current Visit: No Status: Acute Code(s): L08.9 - LOCAL INFECTION OF THE SKIN AND SUBCUTANEOUS TISSUE, UNSP SNOMED Code(s): 751495872 Comment: - Infection of previous surgical site with poorly healing wound. - Appreciate ID recs. Concern is for drug fever from the bactrim which has now been stopped. Will continue Linezolid and cftx for now. Hx of kidney injury on vancomycin. Would not retrial bactrim (this is the first time he has ever had it). All BCxs have been negative. Still waiting on bone biopsy culture. No other e/o of localizing infection. - POD #4 with wound vac. plan for change tomorrow. (2) Charcot's joint of right foot Current Visit: No Status: Acute Code(s): M14.671 - CHARCOT'S JOINT, RIGHT ANKLE AND FOOT SNOMED Code(s): 287076345 Comment: - Due to DM II - Management per Orthopedics (3) DVT prophylaxis Current Visit: No Status: Acute Code(s): Z29.9 - ENCOUNTER FOR PROPHYLACTIC MEASURES, UNSPECIFIED SNOMED Code(s): 253050192 Comment: - lovenox (4) HLD (hyperlipidemia) Current Visit: No Status: Acute Code(s): E78.5 - HYPERLIPIDEMIA, UNSPECIFIED SNOMED Code(s): 76889880 Comment: - Continue lipitor. (5) HTN (hypertension) Current Visit: No Status: Acute Code(s): I10 - ESSENTIAL (PRIMARY) HYPERTENSION SNOMED Code(s): 40799319 Comment: SBP to 160 this afternoon - Continue Atenolol - continue Lisinopril at 10mg (home is 20mg). Add amlodipine 5mg given rise in HELP DESK COORDINATOR (6) Type II diabetes mellitus Current Visit: No Status: Acute Comment: 250-300s, with improved appetite/portion size today. - Lantus 90U-> 100U AM, mealtime 25/25/25 -> 30/30/30 + SSI - FSBG qac (7) Full code status Current Visit: No Status: Acute Code(s): Z78.9 - OTHER SPECIFIED HEALTH STATUS SNOMED Code(s): 364656777 Status and Disposition: ortho inpatient. Medicine is consulting.
[2019-11-28] MEDS: amLODIPine TAB* 5 MG PO SCH (16:43)
[2019-11-28] MEDS: cefTRIAXone(*) 2 GM in NS 0.9% 100 ML* 100 ML IVPB SCH (16:43)
[2019-11-28] MEDS: Atorvastatin* 40 MG TAB PO SCH (21:13)
[2019-11-28] MEDS: oxyCODONE TAB* 5 MG TAB PO PRN (21:14)
[2019-11-29] MEDS: Linezolid 600 MG IVPREMIX(*) 600 MG/300 ML BAG IVPB SCH ×2 (03:22→14:58)
[2019-11-29] MEDS: oxyCODONE TAB* 5 MG TAB PO PRN ×2 (03:36→16:10)
[2019-11-29] MEDS: Acetaminophen TAB* 325 MG PO SCH ×2 (05:10→13:52)
[2019-11-29 05:40] LABS: BUN/Creatinine Ratio 20.6 (8-20); Calcium 8.5 mg/dL (8.6-10.3); EGFR African American 92.4 (>60); EGFR Non-African American 76.4 (>60); Potassium 4.2 mmol/L (3.5-5.0)
[2019-11-29] MEDS ORDERED: Insulin GLARGINE(*) 1 UNITS UNIT SUBCUT SCH (08:00)
[2019-11-29] MEDS: Insulin LISPRO* 1 UNITS UNIT SUBCUT SCH ×6 (08:45→16:40)
[2019-11-29] MEDS: Vitamin THERAPEUTIC TAB PO SCH (08:51)
[2019-11-29] MEDS: amLODIPine TAB* 5 MG PO SCH (08:51)
[2019-11-29] MEDS: Atenolol TAB* 50 MG PO SCH (08:51)
[2019-11-29] MEDS: Lisinopril TAB* 10 MG PO SCH (08:51)
[2019-11-29] MEDS: Magnesium Hydroxide LIQ* 30 ML UDC PO SCH (09:17)
[2019-11-29] MEDS: Docusate CAP* 100 MG PO SCH (09:17)
--- NOTE | 2019-11-29 09:36 | PN ---
Progress Note - Progress Note Date of Service: 11/29/19 SOAP: Subjective: CC: Right foot infection HPI: Mr. 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 diff and right foot osteomyelitis; who presented to the hospital with a right foot infection. Denies fever, chills, nausea, vomiting, or diarrhea. He is feeling well. Objective: Vital Signs 11/29/19 11/29/19 08:00 08:53 Temperature 97.3 F Pulse Rate 87 Respiratory 18 18 Rate Blood Pressure 138/86 (mmHg) O2 Sat by Pulse 95 95 Oximetry Physical Exam: General: NAD, laying in bed Neurological: Alert and Oriented x 4 HEENT: Moist MM, no thrush Cardiovascular: Heart rate regular Respiratory: Lung sounds clear Abdominal: Bowel sounds present; ABD soft, non tender and large MSK: Full ROM of the right ankle, no tenderness with palpation of the right foot Skin: Wound vac in place to the dorsal aspect of the right foot, there is slight erythema surrounding the wound Laboratory Results - last 24 hr 11/28/19 11/29/19 11/29/19 16:44 05:08 07:57 Hem Pathologist Commnt Sodium 136 Potassium 4.2 Chloride 104 Carbon Dioxide 25 Anion Gap 7 BUN 21 Creatinine 1.02 Est GFR ( Amer) 92.4 Est GFR (Non-Af Amer) 76.4 BUN/Creatinine Ratio 20.6 H Glucose 198 H POC Glucose (mg/dL) 232 H 185 H Calcium 8.5 L Microbiology 11/26/19 13:30 Aerobic Blood Culture - Preliminary Blood Venous No Growth Day 2 Anaerobic Blood Culture - Preliminary No Growth Day 2 11/26/19 13:30 Aerobic Blood Culture - Preliminary Blood Venous No Growth Day 2 Anaerobic Blood Culture - Preliminary No Growth Day 2 11/23/19 12:14 Aerobic Blood Culture - Final Blood Venous No Growth Day 5 Anaerobic Blood Culture - Final No Growth Day 5 11/23/19 12:14 Aerobic Blood Culture - Final Blood Venous No Growth Day 5 Anaerobic Blood Culture - Final No Growth Day 5 11/24/19 17:29 Anaerobic Culture - Final Wound No Growth Day 4 Gram Stain - Final Wound Culture - Final No Growth Day 4 Assessment: 1. Right foot infection. S/P I+D, POD # 5. Blood cultures with no growth on day 5. Wound culture with no growth on day 4. Febrile over the weekend, last fever 2 days ago. Afebrile and no leukocytosis. CRP remains elevated. Bone bx results pending. NM bone scan yesterday, showed area of possible osteomyelitis in the right foot, suspect this is a reactive change from surgery. 2. Fevers. Differential dx: Worsening infection, drug reaction, UTI, respiratory illness. No S/S urinary or respiratory illness. No leukocytosis, now afebrile for almost 2 days. Patient reports that fevers started 24 hours after starting Bactrim outpatient and again 24 hours after starting Bactrim inpatient. Blood cultures with no growth on day 5 and day 2. CRP is elevated. Suspect fevers may be secondary to a drug reaction to Bactrim. Bactrim has been stopped. 3. DM2. 4. Morbid obesity. BMI 38.5 Plan: Continue Linezolid and ceftriaxone while in the hospital. Will plan to give a dose of [place] 1,500 mg IV once on the day after discharge. This will provide 2 weeks of ABX coverage while we await the bone biopsy results. Follow up with the ID office in 1-2 weeks. 25 minutes floor time: >50% spent with the patient discussing lab and test results, recommendations for Dalvance and close followup and when to call the office for concerns. All questions answered.
--- NOTE | 2019-11-29 10:10 | PN ---
Progress Note - Progress Note Date of Service: 11/29/19 SOAP: Subjective: [] He has been afebrile and asymptomatic since discontinuing bactrim. Has no complaints. No foot pain. Denies CP, SOB, dizziness, nausea, abd pain, dysuria. Objective: []Gen: NAD, Nontoxic appearing RLE: Vac suctioning well, heather removed, skin surrounding vac intact without erythema, edema, discharge or maceration. No foul odor. Vac changed, wound measures 5x3x1 cm with pink granulation tissue at the base, no discharge, no surrounding erythema. New vac placed and good suction achieved Assessment: []SP I&D with wound vac placement right foot infection. Awaiting bone pathology. Cultures with no growth to date. 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 Has appts with wound care M,W,F for vac changes first change 12/01, has appt W with Dr Perea for f/u ortho eval Needs to see ID within 2 weeks Vital Signs Temp 97.3 F 11/29/19 08:53 Pulse 87 11/29/19 08:53 Resp 18 11/29/19 08:53 BP 138/86 11/29/19 08:53 Pulse Ox 95 11/29/19 08:53 Intake & Output 11/28/19 11/29/19 11/29/19 18:59 06:59 18:59 Intake Total 460 925 Output Total 800 1300 Balance -340 -375 Intake: IV Fluids 60 NS (0.9%) 60 IVPB 400 ABX - CEFTRIAXONE 100 ABX - LINEZOLID 300 Oral 925 Output: Urine 800 1300 Other: Estimated Void Medium Medium # Bowel Movements 1 Estimated Stool Amount Small # Voids 1 1 Laboratory Last Values WBC 5.6 10^3/uL (3.5-10.8) 11/28/19 05:05 RBC 3.26 10^6 /uL (4.18-5.48) L 11/28/19 05:05 Hgb 10.0 g/dL (14.0-18.0) L 11/28/19 05:05 Hct 29 % (42-52) L 11/28/19 05:05 MCV 88 fL (80-94) 11/28/19 05:05 MCH 31 pg (27-31) 11/28/19 05:05 MCHC 35 g/dL (31-36) 11/28/19 05:05 RDW 14 % (10-15) 11/28/19 05:05 Plt Count 169 10^3/uL (150-450) 11/28/19 05:05 MPV 6.4 fL (7.4-10.4) L 11/28/19 05:05 Neut % (Auto) 52.5 % 11/28/19 05:05 Lymph % (Auto) 28.1 % 11/28/19 05:05 [place] % (Auto) 14.2 % 11/28/19 05:05 Eos % (Auto) 4.7 % 11/28/19 05:05 Baso % (Auto) 0.5 % 11/28/19 05:05 Absolute Neuts (auto) 2.9 10^3/ul (1.5-7.7) 11/28/19 05:05 Absolute Lymphs (auto) 1.6 10^3/ul (1.0-4.8) 11/28/19 05:05 Absolute Monos (auto) 0.8 10^3/ul (0-0.8) 11/28/19 05:05 Absolute Eos (auto) 0.3 10^3/ul (0-0.6) 11/28/19 05:05 Absolute Basos (auto) 0.0 10^3/ul (0-0.2) 11/28/19 05:05 Absolute Nucleated RBC 0.0 10^3/ul 11/28/19 05:05 Neutrophils % 66.0 % 11/26/19 04:44 Lymphocytes % 14.0 % 11/26/19 04:44 Monocytes % 16.0 % 11/26/19 04:44 Eosinophils % 4.0 % 11/26/19 04:44 Nucleated RBC % 0.0 11/28/19 05:05 Normal RBC Morphology Normal (Normal) 11/26/19 04:44 ESR 34 mm/Hr (0-19) H 11/23/19 12:14 Hem Pathologist Commnt 11/28/19 05:05 INR (Anticoag Therapy) 1.15 (0.82-1.09) H 11/23/19 12:14 APTT 33.9 seconds (26.0-38.0) 11/23/19 17:28 Sodium 136 mmol/L (135-145) 11/29/19 05:08 Potassium 4.2 mmol/L (3.5-5.0) 11/29/19 05:08 Chloride 104 mmol/L (101-111) 11/29/19 05:08 Carbon Dioxide 25 mmol/L (22-32) 11/29/19 05:08 Anion Gap 7 mmol/L (2-11) 11/29/19 05:08 BUN 21 mg/dL (6-24) 11/29/19 05:08 Creatinine 1.02 mg/dL (0.67-1.17) 11/29/19 05:08 Est GFR ( Amer) 92.4 (>60) 11/29/19 05:08 Est GFR (Non-Af Amer) 76.4 (>60) 11/29/19 05:08 BUN/Creatinine Ratio 20.6 (8-20) H 11/29/19 05:08 Glucose 198 mg/dL (70-100) H 11/29/19 05:08 POC Glucose (mg/dL) 185 mg/dL (70-100) H 11/29/19 07:57 Hemoglobin A1c 7.6 % (4.0-5.6) H 11/24/19 05:04 Lactic Acid 1.5 mmol/L (0.5-2.0) 11/23/19 12:15 Calcium 8.5 mg/dL (8.6-10.3) L 11/29/19 05:08 Total Bilirubin 0.50 mg/dL (0.2-1.0) 11/27/19 05:05 Direct Bilirubin 0.20 mg/dL (0.03-0.18) H 11/27/19 05:05 Indirect Bilirubin 0.3 mg/dL (0.3-1.0) 11/27/19 05:05 AST 37 U/L (13-39) 11/27/19 05:05 ALT 33 U/L (7-52) 11/27/19 05:05 Alkaline Phosphatase 93 U/L (34-104) 11/27/19 05:05 C-Reactive Protein 145.46 mg/L (<8.01) H 11/27/19 05:05 Total Protein 7.0 g/dL (6.4-8.9) 11/27/19 05:05 Albumin 3.5 g/dL (3.2-5.2) 11/27/19 05:05 Globulin 3.5 g/dL (2-4) 11/27/19 05:05 Albumin/Globulin Ratio 1.0 (1-3) 11/27/19 05:05 Urine Color Yellow 11/26/19 17:00 Urine Appearance Clear 11/26/19 17:00 Urine pH 5.0 (5-9) 11/26/19 17:00 Ur Specific [place] 1.021 (1.010-1.030) 11/26/19 17:00 Urine Protein 1+(30 mg/dl) (Negative) A 11/26/19 17:00 Urine Ketones Negative (Negative) 11/26/19 17:00 Urine Blood Negative (Negative) 11/26/19 17:00 Urine Nitrate Negative (Negative) 11/26/19 17:00 Urine Bilirubin Negative (Negative) 11/26/19 17:00 Urine Urobilinogen Negative (Negative) 11/26/19 17:00 Ur Leukocyte Esterase Negative (Negative) 11/26/19 17:00 Urine WBC (Auto) Absent (Absent) 11/26/19 17:00 Urine RBC (Auto) Absent (Absent) 11/26/19 17:00 Urine Bacteria Absent (Absent) 11/26/19 17:00 Urine Glucose Negative (Negative) 11/26/19 17:00 Urine Ascorbic Acid * (Negative) A 11/26/19 17:00 Influenza A (Rapid) Negative (Negative) 11/26/19 16:45 Influenza B (Rapid) Negative (Negative) 11/26/19 16:45
--- NOTE | 2019-11-29 11:46 | DS ---
Orthopedic Discharge Summary - Discharge Summary Date of Admission:11/23/19 Date of Discharge: 11/29/19 Date of Surgery: 11/24/19 Attending Orthopedic Provider: Dr Leigh Pre-operative Diagnosis: Right foot wound infection Operative Procedure: Right foot I&D with vac placement Disposition of Patient: home with outpatient infusion of dalbavancin tomorrow which has a 2 week duration of treatment, wound care appts M,W,F and appt with Dr Leigh 12/06 in [place]. Condition of Patient: [stable] History: JOSE ARMANDO IRVIN is a 54 year old M right foot infection Hospital course: patient was admitted on 11/23/19 and went to surgery for I&D and vac placement right foot on 11/24/[address] leigh without complication. He was maintained on IV abx, wound vac was changed 11/27 and 11/29 with a clean wound base with granulation tissue and no surrounding erythema. He was deemed to be medically and orthopedically stable on 11/29/19 and discharged to home. Home Medications Medication Instructions Recorded Confirmed Type Atenolol TAB* [Tenormin TAB* 50 MG] 50 mg PO QAM 06/07/19 11/23/19 History Atorvastatin Calcium [Lipitor] 40 mg PO QAM 06/07/19 11/23/19 History Insulin Glargine,Hum.rec.anlog 130 unit SUBCUT QA 06/07/19 11/23/19 History [Basaglar Kwikpen U-100] Insulin Lispro [Admelog] 36 unit SUBCUT TID WITH MEALS 06/07/19 11/23/19 History Lisinopril TAB* [Prinivil TAB 10 20 mg PO QAM 06/07/19 11/23/19 History MG*] Pioglitazone TAB* [Actos TAB*] 15 mg PO QAM 06/07/19 11/23/19 History Dulaglutide [Trulicity] 1.5 mg SQ TH 08/07/19 11/23/19 History Acetaminophen TAB* [Tylenol TAB*] 975 mg PO Q8H PRN 09/27/19 11/23/19 History Acetaminophen TAB* [Tylenol TAB*] 975 mg PO Q8HR tab 11/29/19 Rx Docusate CAP* [Colace Cap*] 100 mg PO BID PRN #90 cap 11/29/19 Rx Enoxaparin(*) [Lovenox(*)] 40 mg SUBCUT Q24H #30 syringe 11/29/19 Rx oxyCODONE TAB* [Roxycodone TAB 5 5 mg PO Q4H PRN #20 tab MDD 6 11/29/19 Rx mg*] Discharge Instructions following Orthopedic Surgery: Activity: * Nonweightbearing right foot * Keep dressing clean, dry and intact aside from visits to wound care Wound care: * Attend wound care clinic mondays, wednesdays and fridays for wound vac changes. * Appt with Dr Leigh 01/06/20 Call Orthopedic office for: * Increased drainage * Redness * Increased pain * Fever Go to ER with shortness of breath or chest pain. Diet: * Regular diet * Increase fluids and fiber to prevent constipation. * Continue to use stool softeners, call office if no bowel motion within 48 hours. Medications See Home Medication List in your packet for medications that you should take after discharge. DVT Prophylaxis: Lovenox Dosing: [40] mg once a day. Increases bleeding tendency Pain Control: Oxycodone 5 mg take 1 tab for moderate and 2 tabs for severe pain by mouth every 4 hours as needed for pain. Maximum of 6 tabs per day. Antibiotics are required prior to any dental work. FOLLOW UP: Follow up with Dr. Alvarado] Wednesday12/06/19 in [place] Please call our office with any questions or concerns ([phone]) Come to the infusion center for an infusion of Dalbavancin 11/30/19 Follow up with infectious disease within 10 days, office will call you for appointment
[2019-11-29] MEDS: Enoxaparin(*) 40 MG/0.4 ML SYR SUBCUT SCH (11:58)
[2019-11-29] MEDS: cefTRIAXone(*) 2 GM in NS 0.9% 100 ML* 100 ML IVPB SCH (16:10)
[2019-11-29 16:27] VITALS: BP 140/84
== END 2019-11-29 17:10 | disposition home or self-care (01) | DRG 857 ==
LOC: SSU 11:42
PROVIDERS: ADMIT Orthopaedic Surgery; ATTEND Orthopaedic Surgery
PROC: 0HBMXZZ Excision of Right Foot Skin, External Approach (ICD-10-PCS; 2019-11-24)
PROC: 0QBL0ZX Excision of Right Tarsal, Open Approach, Diagnostic (ICD-10-PCS; principal; 2019-11-24 16:45)
DX: T81.49XA Infection following a procedure, other surgical site, initial encounter (principal); N17.9 Acute kidney failure, unspecified; M86.671 Other chronic osteomyelitis, right ankle and foot; T81.31XA Disruption of external operation (surgical) wound, not elsewhere classified, initial encounter; L97.518 Non-pressure chronic ulcer of other part of right foot with other specified severity; L03.115 Cellulitis of right lower limb; I10 Essential (primary) hypertension; E78.5 Hyperlipidemia, unspecified; E11.40 Type 2 diabetes mellitus with diabetic neuropathy, unspecified; L08.9 Local infection of the skin and subcutaneous tissue, unspecified; E11.69 Type 2 diabetes mellitus with other specified complication; M14.671 Charcot's joint, right ankle and foot; E66.01 Morbid (severe) obesity due to excess calories; T36.8X5A Adverse effect of other systemic antibiotics, initial encounter; X58.XXXA Exposure to other specified factors, initial encounter; Y92.230 Patient room in hospital as the place of occurrence of the external cause; K21.9 Gastro-esophageal reflux disease without esophagitis; Z88.1 Allergy status to other antibiotic agents; Z83.3 Family history of diabetes mellitus; Z82.49 Family history of ischemic heart disease and other diseases of the circulatory system; Z82.3 Family history of stroke; Z89.411 Acquired absence of right great toe; Z91.018 Allergy to other foods; Z79.4 Long term (current) use of insulin; Z79.899 Other long term (current) drug therapy
CPT/HCPCS: 36415; 71045; 78315; 80048; 80076; 81003; 81015; 82565; 83036; 83605; 84520; 85025; 85060; 85610; 85652; 85730; 86140; 87040; 87070; 87073; 87205; 88300; 88304; 88311; 93005; A9270-GY; A9503; J0696; J1644; J1650; J2020; J2250; J2405; J2704; J3010; J3490

== ENCOUNTER 2023-04-02 09:57 | Inpatient (IN) ==
[2023-04-02] MEDS ORDERED: Albuterol/Ipratropium NEB.SOL (2.5/0.5 MG) 3 ML NEB.SOLN INH ONE (12:38)
[2023-04-02 13:41] LABS: ABS Basophils 0.1 10^3/uL (0.0-0.1); ABS Eosinophils 0.4 10^3/uL (0.0-0.5); ABS Lymphocytes 0.6 10^3/uL (1.0-4.8); ABS Monocytes 1.2 10^3/uL (0.0-1.1); ABS Neutrophils 17.2 10^3/uL (1.5-7.6); ABS Nucleated RBC 0.01 10^3/ul; Eosinophil % 1.8 %; Hematocrit 38.3 % (38-53); Hemoglobin 12.7 g/dL (13.2-16.3); Lymphocyte % 3.1 %; Mean Corpuscular Hemoglobin 29.4 pg (27-33); Mean Corpuscular Hgb Conc 33.2 g/dL (31-36); Mean Corpuscular Volume 88.8 fL (80-97); Mean Platelet Volume 6.2 fL (7.5-11.2); Platelet Count 260 10^3/uL (150-450); Red Blood Count 4.32 10^6/uL (4.06-5.63); Red Cell Distribution Width 14.2 % (12-17); White Blood Count 19.4 10^3/uL (3.6-10.2)
[2023-04-02 14:23] LABS: Albumin 3.7 g/dL (3.2-5.2); Albumin/Globulin Ratio 1.1 (1-3); C Reactive Protein 258.61 mg/L (<8.01); Calcium 8.7 mg/dL (8.6-10.3); Creatinine, Serum 1.57 mg/dL (0.67-1.17); Globulin 3.4 g/dL (2-4); Potassium 4.7 mmol/L (3.5-5.0); Total Bilirubin 0.6 mg/dL (0.2-1.0); Total Protein 7.1 g/dL (6.4-8.9); eGFR CKD-EPI 51.4 (>60)
[2023-04-02] MEDS ORDERED: cefTRIAXone 1 gm/50 mL D5W 1 GM/50 ML BAG IV ONE (14:49)
[2023-04-02] MEDS ORDERED: Azithromycin 500 mg/250 ml NS 500 MG/250 ML BAG IVPB ONE (14:49)
[2023-04-02] MEDS ORDERED: NS 0.9% 1000 ml BAG 1,000 ML IV ONE ×2 (14:50→16:16)
[2023-04-02] MEDS ORDERED: Iodixanol (CONTRAST) 320 MG/ML 100 ML SDV IV ONE ×2 (15:01→15:54)
[2023-04-02 15:33] LABS: Urine Appearance Clear; Urine Bacteria Absent (Absent); Urine Bilirubin Negative (Negative); Urine Blood 1+ (Negative); Urine Color Yellow; Urine Glucose 3+(>=500 mg/dL) (Negative); Urine Ketones Negative (Negative); Urine Nitrite Negative (Negative); Urine Protein 2+(100 mg/dL) (Negative); Urine Red Blood Cell Trace(0-2/hpf) (Absent); Urine Specific Gravity 1.024 (1.002-1.030); Urine Urobilinogen Negative (Negative); Urine White Blood Cell Trace(0-5/hpf) (Absent)
[2023-04-02] MEDS ORDERED: Enoxaparin 30 MG/0.3 ML SYR SUBCUT SCH (18:00)
[2023-04-02] MEDS ORDERED: NS 0.9% 1000 ml BAG 1,000 ML IV SCH (18:00)
[2023-04-02] MEDS ORDERED: Dextrose 50% Syringe 50 ml 25 GM/50 ML SYRINGE IV PUSH PRN (18:06)
[2023-04-03] MEDS ORDERED: Albuterol 2.5mg/3 ml (0.083%) NEB.SOLN INH PRN (02:25)
[2023-04-03] MEDS ORDERED: Albuterol 2.5mg/3 ml (0.083%) NEB.SOLN INH ONE (02:32)
[2023-04-03] MEDS: Metoprolol Tartrate 5 mg VIAL 5 ml VIAL (1 mg/ml) IV PRN ×3 (07:00→07:38)
[2023-04-03] MEDS ORDERED: Nitroglycerin 0.3 mg TAB SL ONE (07:26)
[2023-04-03] MEDS ORDERED: Morphine 2 MG/ML SYRINGE IV ONE (07:34)
[2023-04-03] MEDS ORDERED: Furosemide 20 mg/2 ml IV VIAL IV ONE ×2 (07:38→07:41)
[2023-04-03] MEDS ORDERED: Digoxin IV 0.5 MG/2 ML AMP (0.25 MG/ML) IV SLOW PU ONE (07:43)
[2023-04-03 07:49] LABS: Hematocrit 37.5 % (38-53); Hemoglobin 12.5 g/dL (13.2-16.3); Mean Corpuscular Hemoglobin 29.6 pg (27-33); Mean Corpuscular Hgb Conc 33.5 g/dL (31-36); Mean Corpuscular Volume 88.6 fL (80-97); Mean Platelet Volume 6.5 fL (7.5-11.2); Platelet Count 240 10^3/uL (150-450); Red Blood Count 4.23 10^6/uL (4.06-5.63); Red Cell Distribution Width 13.9 % (12-17); White Blood Count 20.4 10^3/uL (3.6-10.2)
[2023-04-03] MEDS ORDERED: Amiodarone 150 mg IVPREMIX 150 MG/100 ML BAG IV ONE ×2 (07:54→14:02)
[2023-04-03] MEDS ORDERED: .Amiodarone 24HR ONLY IV Protocol Order Note IV ONE (07:54)
[2023-04-03] MEDS ORDERED: Norepinephrine 16MCG/ML BAG NS 4,000 MCG/250 ML BAG IV SCH (08:00)
[2023-04-03] MEDS ORDERED: Amiodarone 360 MG IVPREMIX 360 MG/200 ML BAG IV SCH (08:05)
[2023-04-03] MEDS ORDERED: Norepinephrine 16MCG/ML IVPREMIX 4,000 MCG/250 ML D5W BAG IV SCH (08:15)
[2023-04-03 08:26] LABS: ABS Basophils 0.1 10^3/uL (0.0-0.1); ABS Eosinophils 0.3 10^3/uL (0.0-0.5); ABS Lymphocytes 0.6 10^3/uL (1.0-4.8); ABS Neutrophils 18.4 10^3/uL (1.5-7.6); ABS Nucleated RBC 0.02 10^3/ul; Eosinophil % 1.7 %; Lymphocyte % 2.9 %; Nucleated Red Blood Cells % 0.1 /100 WBC (0.0-0.4)
[2023-04-03 08:30] LABS: Magnesium 1.7 mg/dL (1.9-2.7)
[2023-04-03 08:34] LABS: Calcium 8.2 mg/dL (8.6-10.3); Creatinine, Serum 1.4 mg/dL (0.67-1.17); Magnesium 1.7 mg/dL (1.9-2.7); Potassium 4.6 mmol/L (3.5-5.0)
[2023-04-03] MEDS ORDERED: Aspirin EC 81 mg TAB.EC (enteric coated) PO SCH (09:00)
[2023-04-03] MEDS: Insulin GLARGINE 100 un/ml 10 ml VIAL SUBCUT SCH ×2 (09:27→22:04)
[2023-04-03 09:33] LABS: High Sensitivity Troponin 1 Hr 266 pg/mL (<20)
[2023-04-03] MEDS ORDERED: Piperacillin/Tazobac ADVAN 3.375 GM in NS 0.9% 100 ml BAG 100 ML IV ONE (09:59)
[2023-04-03] MEDS ORDERED: Zosyn per Pharmacy NOTE FOLLOW UP SCH (10:00)
[2023-04-03] MEDS ORDERED: Magnesium Sulfate IV 3 GM in NS 0.9% 100 ml BAG 100 ML IVPB ONE (10:01)
[2023-04-03] MEDS ORDERED: Heparin DRIP 25,000 UNITS BAG 25,000 UNITS/500 ML BAG IV SCH (11:45)
[2023-04-03] MEDS: Heparin DRIP 25,000 UNITS BAG 25,000 UNITS/500 ML BAG IV SCH (13:01)
[2023-04-03] MEDS: Morphine 2 MG/ML SYRINGE IV PRN ×3 (14:22→23:00)
[2023-04-03] MEDS: Amiodarone 360 MG IVPREMIX 360 MG/200 ML BAG IV SCH (15:04)
[2023-04-03] MEDS ORDERED: cefTRIAXone 1 gm/50 mL D5W 1 GM/50 ML BAG IV SCH (16:00)
[2023-04-03] MEDS: ZOSYN 3.375 GM Q8H per EXTENDED INFUSION IV SCH (17:35)
[2023-04-03] MEDS ORDERED: Metoprolol Tartrate 5 mg VIAL 5 ml VIAL (1 mg/ml) IV ONE (18:17)
[2023-04-03] MEDS ORDERED: Metoprolol Tartrate 5 mg VIAL 5 ml VIAL (1 mg/ml) IV PRN (19:08)
[2023-04-04] MEDS: ZOSYN 3.375 GM Q8H per EXTENDED INFUSION IV SCH ×3 (02:33→17:43)
[2023-04-04] MEDS: Amiodarone 360 MG IVPREMIX 360 MG/200 ML BAG IV SCH ×2 (02:42→19:14)
[2023-04-04] MEDS: Morphine 2 MG/ML SYRINGE IV PRN ×6 (02:51→23:25)
[2023-04-04] MEDS: Heparin DRIP 25,000 UNITS BAG 25,000 UNITS/500 ML BAG IV SCH ×2 (04:20→17:46)
[2023-04-04 05:41] LABS: ABS Basophils 0.1 10^3/uL (0.0-0.1); ABS Eosinophils 0.6 10^3/uL (0.0-0.5); ABS Lymphocytes 1.1 10^3/uL (1.0-4.8); ABS Monocytes 1.1 10^3/uL (0.0-1.1); ABS Neutrophils 17.6 10^3/uL (1.5-7.6); Eosinophil % 2.8 %; Hematocrit 34.6 % (38-53); Hemoglobin 11.6 g/dL (13.2-16.3); Lymphocyte % 5.2 %; Mean Corpuscular Hemoglobin 29.5 pg (27-33); Mean Corpuscular Hgb Conc 33.4 g/dL (31-36); Mean Corpuscular Volume 88.3 fL (80-97); Mean Platelet Volume 6.5 fL (7.5-11.2); Platelet Count 226 10^3/uL (150-450); Red Blood Count 3.92 10^6/uL (4.06-5.63); Red Cell Distribution Width 14.4 % (12-17); White Blood Count 20.5 10^3/uL (3.6-10.2)
[2023-04-04 06:20] LABS: Anion Gap 11 mmol/L (2-16); Blood Urea Nitrogen 36 mg/dL (6-24); CO2 Carbon Dioxide 20 mmol/L (22-32); Calcium 7.8 mg/dL (8.6-10.3); Chloride 99 mmol/L (101-111); Creatinine, Serum 1.86 mg/dL (0.67-1.17); Glucose 219 mg/dL (70-100); Magnesium 2.4 mg/dL (1.9-2.7); Potassium 4.6 mmol/L (3.5-5.0); Sodium 130 mmol/L (135-145); eGFR CKD-EPI 41.9 (>60)
[2023-04-04] MEDS: Insulin GLARGINE 100 un/ml 10 ml VIAL SUBCUT SCH ×2 (08:36→21:39)
[2023-04-04] MEDS: Heparin 5000 UNITS/ML 1 mL VIAL IV SCH ×2 (09:23→15:46)
[2023-04-04 09:44] LABS: % Iron Saturation 8 % (15-55); .Transferrin 173 mg/dL (203-362); Iron < 20 ug/dL (50-212); Total Iron Binding Capacity 242 mcg/dL (250-450); Unsaturated Iron Binding 222 ug/dL
[2023-04-04 10:06] LABS: Ferritin 134.5 ng/mL (24-336)
[2023-04-04 10:10] LABS: Folate > 20.00 ng/mL (5.90-24.80)
[2023-04-04 10:11] LABS: Vitamin B12 409 pg/mL (180-914)
[2023-04-04] MEDS ORDERED: Sulfur Hexaflouride MICROSPHR 25 MG VIAL ONE (11:25)
[2023-04-04] MEDS ORDERED: Bumetanide IV 0.25 MG/ML 4 ml VIAL (1 mg) IV SLOW PU ONE (11:31)
[2023-04-05] MEDS: Amiodarone 360 MG IVPREMIX 360 MG/200 ML BAG IV SCH ×3 (01:01→06:52)
[2023-04-05] MEDS: ZOSYN 3.375 GM Q8H per EXTENDED INFUSION IV SCH ×3 (01:34→18:04)
[2023-04-05] MEDS: Morphine 2 MG/ML SYRINGE IV PRN ×2 (02:59→08:56)
[2023-04-05 04:18] LABS: Hematocrit 33.4 % (38-53); Hemoglobin 11.1 g/dL (13.2-16.3); Mean Corpuscular Hemoglobin 29.4 pg (27-33); Mean Corpuscular Hgb Conc 33.2 g/dL (31-36); Mean Corpuscular Volume 88.6 fL (80-97); Mean Platelet Volume 7.1 fL (7.5-11.2); Platelet Count 215 10^3/uL (150-450); Red Blood Count 3.76 10^6/uL (4.06-5.63); Red Cell Distribution Width 14.4 % (12-17); White Blood Count 19.6 10^3/uL (3.6-10.2)
[2023-04-05 04:28] LABS: ABS Basophils 0.1 10^3/uL (0.0-0.1); ABS Eosinophils 0.8 10^3/uL (0.0-0.5); ABS Lymphocytes 1.4 10^3/uL (1.0-4.8); ABS Monocytes 1.1 10^3/uL (0.0-1.1); ABS Neutrophils 16.3 10^3/uL (1.5-7.6); ABS Nucleated RBC 0.03 10^3/ul; Eosinophil % 3.9 %; Lymphocyte % 7.3 %; Nucleated Red Blood Cells % 0.1 /100 WBC (0.0-0.4)
[2023-04-05 04:52] LABS: Calcium 7.4 mg/dL (8.6-10.3); Creatinine, Serum 2.23 mg/dL (0.67-1.17); Magnesium 2.5 mg/dL (1.9-2.7); Potassium 4.3 mmol/L (3.5-5.0); eGFR CKD-EPI 33.7 (>60)
[2023-04-05] MEDS: Heparin DRIP 25,000 UNITS BAG 25,000 UNITS/500 ML BAG IV SCH ×2 (06:15→17:30)
[2023-04-05] MEDS ORDERED: Amiodarone 150 mg IVPREMIX 150 MG/100 ML BAG IV ONE (08:39)
[2023-04-05] MEDS: Insulin GLARGINE 100 un/ml 10 ml VIAL SUBCUT SCH (08:58)
[2023-04-05 09:44] LABS: TSH Ultra Thyroid Stim Horm 0.66 mcIU/mL (0.34-5.60)
[2023-04-05] MEDS ORDERED: Dexmedetomidine 1,000 MCG in NS 0.9% 250 ml 240 ML IV SCH (11:00)
[2023-04-05] MEDS ORDERED: Bumetanide IV 0.25 MG/ML 4 ml VIAL (1 mg) IV SLOW PU ONE ×2 (11:07→18:43)
[2023-04-05] MEDS ORDERED: Amiodarone 360 MG IVPREMIX 360 MG/200 ML BAG IV ONE (12:00)
[2023-04-05 12:59] LABS: High Sensitivity Troponin 1 Hr 999 pg/mL (<20)
[2023-04-05] MEDS ORDERED: Lorazepam PYXIS KEY PRN (13:14)
[2023-04-05] MEDS ORDERED: LORazepam 2 mg VIAL 1 ml IV PUSH ONE (13:14)
[2023-04-05] MEDS ORDERED: Rocuronium 50 mg VIAL 10 mg/ml 5 ml VIAL (50 mg) ONE ×3 (13:55→14:14)
[2023-04-05] MEDS ORDERED: Norepinephrine 16MCG/ML BAGD5W 4,000 MCG/250 ML BAG IV ONE (13:56)
[2023-04-05] MEDS ORDERED: Propofol 10 mg/ml 100 ML BTL 1,000 MG/100 ML BTL ONE (13:57)
[2023-04-05] MEDS: Norepinephrine 16MCG/ML BAGD5W 4,000 MCG/250 ML BAG IV SCH ×2 (14:12→19:33)
[2023-04-05] MEDS ORDERED: Etomidate 40 mg/20 ml (2 MG/ML) 20 ml VIAL (40 mg) ONE (14:14)
[2023-04-05] MEDS: Propofol 10 mg/ml 100 ML BTL 1,000 MG/100 ML BTL IV SCH ×2 (14:16→18:02)
[2023-04-05] MEDS ORDERED: Sulfur Hexaflouride MICROSPHR 25 MG VIAL ONE (14:46)
[2023-04-05] MEDS ORDERED: Lactated Ringers 1000 ml BAG 500 ML IV ONE ×2 (14:53→17:09)
[2023-04-05] MEDS ORDERED: Clindamycin 600 MG/D5W BAG 600 MG/50 ML BAG IV SCH (15:00)
[2023-04-05] MEDS ORDERED: Linezolid 600 MG IVPREMIX(*) 600 MG/300 ML BAG IVPB SCH (15:00)
[2023-04-05 15:25] LABS: PCO2 Arterial 67 mmHg (35-45); PO2 Arterial 91 mmHg (80-100)
[2023-04-05 15:30] LABS: Hematocrit 35.4 % (38-53); Hemoglobin 11.7 g/dL (13.2-16.3); Mean Corpuscular Hemoglobin 29.1 pg (27-33); Mean Corpuscular Hgb Conc 33.1 g/dL (31-36); Mean Platelet Volume 7.3 fL (7.5-11.2); Platelet Count 273 10^3/uL (150-450); Red Blood Count 4.02 10^6/uL (4.06-5.63); Red Cell Distribution Width 14.7 % (12-17); White Blood Count 27.8 10^3/uL (3.6-10.2)
[2023-04-05 15:32] LABS: ABS Basophils 0.1 10^3/uL (0.0-0.1); ABS Eosinophils 1.2 10^3/uL (0.0-0.5); ABS Monocytes 0.9 10^3/uL (0.0-1.1); ABS Neutrophils 23.6 10^3/uL (1.5-7.6); ABS Nucleated RBC 0.05 10^3/ul; Eosinophil % 4.3 %; Lymphocyte % 7.4 %; Nucleated Red Blood Cells % 0.2 /100 WBC (0.0-0.4)
[2023-04-05 16:11] LABS: Albumin/Globulin Ratio 0.9 (1-3); Calcium 7.7 mg/dL (8.6-10.3); Creatinine, Serum 2.76 mg/dL (0.67-1.17); Direct Bilirubin 0.3 mg/dL (0.03-0.18); Globulin 3.3 g/dL (2-4); Indirect Bilirubin 0.4 mg/dL (0.3-1.0); Phosphorus 8.8 mg/dL (2.5-5.0); Potassium 4.9 mmol/L (3.5-5.0); Total Bilirubin 0.7 mg/dL (0.2-1.0); Total Protein 6.3 g/dL (6.4-8.9); eGFR CKD-EPI 26.1 (>60)
[2023-04-05 17:19] LABS: PCO2 Arterial 56 mmHg (35-45); PO2 Arterial 127 mmHg (80-100)
[2023-04-05 17:42] LABS: Urine Appearance Cloudy; Urine Bilirubin Negative (Negative); Urine Blood 1+ (Negative); Urine Color Yellow; Urine Glucose 3+(>=500 mg/dL) (Negative); Urine Ketones Negative (Negative); Urine Nitrite Negative (Negative); Urine Protein 1+(30 mg/dL) (Negative); Urine Specific Gravity 1.015 (1.002-1.030); Urine Urobilinogen Negative (Negative)
[2023-04-05 17:45] LABS: Urine Bacteria Absent (Absent); Urine Red Blood Cell 2+(6-10/hpf) (Absent); Urine Squamous Epithelial Cell Present (Absent); Urine White Blood Cell 1+(6-10/hpf) (Absent)
[2023-04-05] MEDS ORDERED: Amiodarone 360 MG IVPREMIX 360 MG/200 ML BAG IV SCH (18:00)
[2023-04-05] MEDS: Chlorhexidine MOUTHWASH 0.12% 15 ML UDC TOPICAL SCH (18:02)
[2023-04-05 18:51] LABS: Glucose Confirmatory 481 mg/dL (70-100)
[2023-04-05] MEDS ORDERED: Norepinephrine *QUAD STRENGTH* 16 mg/250 mL NS per protocol IV SCH (20:00)
[2023-04-05] MEDS ORDERED: DOXYcycline 100 MG in NS 0.9% 250 ml 250 ML IVPB SCH (21:00)
[2023-04-05] MEDS ORDERED: Insulin GLARGINE 100 un/ml 10 ml VIAL SUBCUT SCH (21:00)
[2023-04-05 21:39] VITALS: BP 141/80
[2023-04-06] MEDS: Chlorhexidine MOUTHWASH 0.12% 15 ML UDC TOPICAL SCH (01:14)
[2023-04-06] MEDS ORDERED: Famotidine IV 10 MG/ML 2 ml VIAL (20 mg) IV SLOW PU SCH (09:00)
== END 2023-04-05 21:10 | disposition short-term general hospital (02) | DRG 871 ==
LOC: ED 09:57 → EDHOLD 17:57 → SUATTDRO 17:57 → ICU 04-03 11:00
PROVIDERS: ADMIT Internal Medicine; ATTEND Internal Medicine